=== PATIENT | male | born 1995 | race African-American/Black ===

== ENCOUNTER 2018-05-21 22:18 | Emergency (ER) | payer SELFPAY ==
[2018-05-22] MEDS ORDERED: KETOROLAC 30 MG/ML INJ ONE (00:41)
[2018-05-22 01:07] LABS: Absolute Lymphocytes (CBC) 0.3 K/uL (0.7-4.9); Absolute Monocytes 0.4 K/uL (0.1-1.3); Absolute Neutrophil 3.8 K/uL (1.8-8.0); Basophils % 0.3 % (0-1.3); Eosinophils % 0.4 % (0-4.4); Hematocrit 48.4 % (39.6-49.0); Lymphocytes % 7.5 % (15.3-44.8); MCH 29.1 pg (27.0-35.0); MCV 86.9 fL (80-100); MPV 9.3 fL (7.6-11.3); Monocytes % 9.3 % (3.3-12.3); RBC Red Blood Cell Count 5.57 M/uL (4.33-5.43)
[2018-05-22 01:15] LABS: Urine Bacteria <20 /HPF (NONE SEEN); Urine Culture Reflex Order NOT NEEDED; Urine Mucus MOD /HPF (NONE SEEN); Urine RBC NONE SEEN /HPF (NONE SEEN)
[2018-05-22 01:53] LABS: ALT/SGPT 23 U/L (12-78); AST/SGOT 18 U/L (15-37); Albumin 4.3 g/dL (3.4-5.0); Alkaline Phosphatase 72 U/L (45-117); BUN Blood Urea Nitrogen 20 mg/dL (7-18); Bicarbonate 29 mmol/L (21-32); Bilirubin Total 1.3 mg/dL (0.2-1.0); Glucose Level 93 mg/dL (74-106); Potassium 4.2 mmol/L (3.5-5.1); Protein, Total 8.1 g/dL (6.4-8.2); Sodium Level 135 mmol/L (136-145)
--- NOTE | 2018-05-22 02:19 | ER ---
Nurse's Notes [facility] Name: Paulette Lozoya Age: 22 yrs Sex: Male : 1995 Arrival Date: 05/21/2018 Time: 22:38 Bed 27 Private MD: Diagnosis: Acute Right flank pain;Enteritis Presentation: 05/21 23:37 Presenting complaint: Patient states: he woke up this morning with right flank pain and bb says he is just urinating a little bit also had some difficulty breathing when he woke up but it went away until he walked into the ED but the breathing difficulty has resolved. Transition of care: patient was not received from another setting of care. Onset of symptoms was May 21, 2018. Risk Assessment: Do you want to hurt yourself or someone else? Patient reports no desire to harm self or others. Initial Sepsis Screen: Does the patient meet any 2 criteria? No. Patient's initial sepsis screen is negative. Does the patient have a suspected source of infection? No. Patient's initial sepsis screen is negative. Care prior to arrival: None. 23:37 Method Of Arrival: Ambulatory 23:37 Acuity: BLAKE 3 bb Triage Assessment: 23:40 General: Appears in no apparent distress. slender, Behavior is calm, cooperative. Pain: bb Complains of pain in back Pain currently is 6 out of 10 on a pain scale. Pain began suddenly. Neuro: Level of Consciousness is awake, alert, obeys commands, Oriented to person, place, time, situation. Respiratory: Respiratory effort is even, unlabored. Musculoskeletal: Circulation, motion, and sensation intact. Historical: - Allergies: 23:39 No Known Allergies; bb - Home Meds: 23:39 None [Active]; bb - PMHx: 23:39 ADD/ADHD; bb - PSHx: 23:39 None; bb - Immunization history:: Adult Immunizations up to date. - Social history:: Smoking status: Patient uses tobacco products, denies chronic smoking, but will smoke occasionally, Patient uses alcohol, occasionally. Patient/guardian denies using street drugs. - Ebola Screening: : No symptoms or risks identified at this time. - Family history:: not pertinent. - Hospitalizations: : No recent hospitalization is reported. Screenin/01 01:11 Abuse screen: Denies threats or abuse. Denies injuries from another. Nutritional mg2 screening: No deficits noted. Tuberculosis screening: No symptoms or risk factors identified. Fall Risk IV access (20 points). Assessment: 01:08 General: Appears in no apparent distress. comfortable, Behavior is calm, cooperative. mg2 Pain: Complains of pain in back Pain does not radiate. Pain currently is 6 out of 10 on a pain scale. Quality of pain is described as aching, Pain began gradually, Is intermittent. Neuro: Level of Consciousness is awake, alert, obeys commands, Oriented to person, place, time, situation. Cardiovascular: Capillary refill < 3 seconds Patient's skin is warm and dry. Respiratory: Airway is patent Respiratory effort is even, unlabored, Respiratory pattern is regular, symmetrical. GI: Abdomen is flat. : Urine is clear. EENT: No signs and/or symptoms were reported regarding the EENT system. Derm: Skin is intact, is healthy with good turgor, Skin is pink, warm \T\ dry. normal. Musculoskeletal: Circulation, motion, and sensation intact. Capillary refill < 3 seconds. 02:40 Reassessment: Patient appears in no apparent distress at this time. Patient and/or mg2 family updated on plan of care and expected duration. Pain level reassessed. Patient is alert, oriented x 3, equal unlabored respirations, skin warm/dry/pink. Vital Signs: 05/21 23:39 BP 145 / 79; Pulse 88; Resp 16 S; Temp 99.3(O); Pulse Ox 100% on R/A; Weight 68.04 kg bb (R); Height 5 ft. 8 in. (172.72 cm) (R); Pain 6/10; 05/22 01:12 BP 125 / 78; Pulse 88; Resp 18; Pulse Ox 99% on R/A; Pain 4/10; mg2 05/21 23:39 Body Mass Index 22.81 (68.04 kg, 172.72 cm) bb ED Course: 05/21 22:38 Patient arrived in ED. am2 23:39 Triage completed. bb 23:39 Arm band placed on Patient placed in waiting room, Patient notified of wait time. bb 05/22 00:01 Eliceo Wayne MD is Attending Physician. wa 00:30 Patient moved to radiology via wheelchair. kw 00:31 Chest Pa And Lat (2 Views) XRAY In Process Unspecified. EDMS 00:31 X-ray completed. Patient tolerated procedure well. kw 00:31 Kash De La Rosa, RN is Primary Nurse. mg2 00:[address] via wheelchair. kw 00:57 Stone Protocol In Process Unspecified. EDMS 01:11 No provider procedures requiring assistance completed. Inserted saline lock: 20 gauge mg2 in right antecubital area, using aseptic technique. Blood collected. 01:12 Patient has correct armband on for positive identification. Pulse ox on. NIBP on. mg2 02:33 IV discontinued, intact, bleeding controlled, No redness/swelling at site. Pressure mg2 dressing applied. Administered Medications: 01:05 Drug: TORadol 30 mg Route: IVP; Site: right antecubital; mg2 02:25 Follow up: Response: No adverse reaction; Marked relief of symptoms mg2 Outcome: 02:18 Discharge ordered by . wa 02:33 Discharged to home ambulatory. mg2 02:33 Condition: stable 02:33 Discharge instructions given to patient, Instructed on discharge instructions, follow up and referral plans. Demonstrated understanding of instructions, follow-up care, medications, Prescriptions given X 2. 02:48 Patient left the ED. mg2 Signatures: Dispatcher [employer] EDMelia Gaviria RN RN Lelo Granados Amanda am2 Appiah, William, MD MD wa Gardose, Michele, RN RN mg2
--- NOTE | 2018-05-22 02:19 | EDPHYS ---
Physician Documentation [facility] Name: Paulette Lozoya Age: 22 yrs Sex: Male : 1995 Arrival Date: 05/21/2018 Time: 22:38 Bed 27 Private MD: ED Physician Eliceo Wayne HPI: 05/22 06:27 This 22 yrs old Black Male presents to ER via Ambulatory with complaints of Back Pain, wa Breathing Difficulty. 06:27 The patient presents with pain that is acute, with no known mechanism of injury, denies wa injury. c/o R low back pain. states earlier felt some difficulty breathing, denies SOB at MD encounter. denies penile discharge, blood in urine, or painful urination. The symptoms are located in the R low back. Onset: The symptoms/episode began/occurred today. The pain does not radiate. Associated signs and symptoms: The patient has no apparent associated signs or symptoms. The problem was sustained from unknown cause. Modifying factors: The patient symptoms are alleviated by nothing, the patient symptoms are aggravated by movement. Severity of symptoms: At their worst the symptoms were moderate, in the emergency department the symptoms are unchanged. The patient has not experienced similar symptoms in the past. The patient has not recently seen a physician. Historical: - Allergies: 05/21 23:39 No Known Allergies; bb - Home Meds: 23:39 None [Active]; bb - PMHx: 23:39 ADD/ADHD; bb - PSHx: 23:39 None; bb - Immunization history:: Adult Immunizations up to date. - Social history:: Smoking status: Patient uses tobacco products, denies chronic smoking, but will smoke occasionally, Patient uses alcohol, occasionally. Patient/guardian denies using street drugs. - Ebola Screening: : No symptoms or risks identified at this time. - Family history:: not pertinent. - Hospitalizations: : No recent hospitalization is reported. ROS: 05/22 06:30 Constitutional: Negative for fever, chills, and weight loss, Eyes: Negative for injury, wa pain, redness, and discharge, ENT: Negative for injury, pain, and discharge, Neck: Negative for injury, pain, and swelling, Cardiovascular: Negative for chest pain, palpitations, and edema, Respiratory: Negative for shortness of breath, cough, wheezing, and pleuritic chest pain, : Negative for injury, bleeding, discharge, and swelling, MS/Extremity: Negative for injury and deformity, Skin: Negative for injury, rash, and discoloration, Neuro: Negative for headache, weakness, numbness, tingling, and seizure. Abdomen/GI: Positive for mild diarrhea, Negative for abdominal pain, vomiting, constipation. Exam: 06:31 Constitutional: This is a well developed, well nourished patient who is awake, alert, wa and in no acute distress. Head/Face: Normocephalic, atraumatic. Eyes: Pupils equal round and reactive to light, extra-ocular motions intact. Lids and lashes normal. Conjunctiva and sclera are non-icteric and not injected. Cornea within normal limits. Periorbital areas with no swelling, redness, or edema. ENT: Nares patent. No nasal discharge, no septal abnormalities noted. Tympanic membranes are normal and external auditory canals are clear. Oropharynx with no redness, swelling, or masses, exudates, or evidence of obstruction, uvula midline. Mucous membranes moist. Neck: Trachea midline, no thyromegaly or masses palpated, and no cervical lymphadenopathy. Supple, full range of motion without nuchal rigidity, or vertebral point tenderness. No Meningismus. Chest/axilla: Normal chest wall appearance and motion. Nontender with no deformity. No lesions are appreciated. Cardiovascular: Regular rate and rhythm with a normal S1 and S2. No gallops, murmurs, or rubs. Normal PMI, no JVD. No pulse deficits. Respiratory: Lungs have equal breath sounds bilaterally, clear to auscultation and percussion. No rales, rhonchi or wheezes noted. No increased work of breathing, no retractions or nasal flaring. Abdomen/GI: Soft, non-tender, with normal bowel sounds. No distension or tympany. No guarding or rebound. No evidence of tenderness throughout. Back: No spinal tenderness. No costovertebral tenderness. Full range of motion. Male : Normal genitalia with no discharge or lesions. Skin: Warm, dry with normal turgor. Normal color with no rashes, no lesions, and no evidence of cellulitis. Vital Signs: 05/21 23:39 BP 145 / 79; Pulse 88; Resp 16 S; Temp 99.3(O); Pulse Ox 100% on R/A; Weight 68.04 kg bb (R); Height 5 ft. 8 in. (172.72 cm) (R); Pain 6/10; 05/22 01:12 BP 125 / 78; Pulse 88; Resp 18; Pulse Ox 99% on R/A; Pain 4/10; mg2 05/21 23:39 Body Mass Index 22.81 (68.04 kg, 172.72 cm) bb MDM: 00:01 Patient medically screened. il 06:31 Differential diagnosis: will work up to exclude infection vs kidney stone. consider il musculoskeletal pain. Data reviewed: vital signs, nurses notes. Test interpretation: by ED physician or midlevel provider: labs noted within limits, CT: no stones. possible mild enteritis. Response to treatment: the patient's symptoms have markedly improved after treatment. 05/22 00:13 Order name: CMP; Complete Time: 02:13 il 05/22 00:13 Order name: CBC with Diff; Complete Time: 02:13 il 05/22 00:11 Order name: Chest Pa And Lat (2 Views) XRAY il 05/22 00:13 Order name: Urine Microscopic Only; Complete Time: 02:13 il 05/22 01:04 Order name: Urine Dipstick--Ancillary (enter results) 05/22 00:13 Order name: IV Start; Complete Time: 01:05 il 05/22 00:13 Order name: Urine Dipstick-Ancillary (obtain specimen); Complete Time: 01:05 il 05/22 00:39 Order name: Stone Protocol EDMS Administered Medications: 01:05 Drug: TORadol 30 mg Route: IVP; Site: right antecubital; mg2 02:25 Follow up: Response: No adverse reaction; Marked relief of symptoms mg2 Disposition: 05/22/18 02:18 Discharged to Home. Impression: Acute Right flank pain, Enteritis. - Condition is Stable. - Discharge Instructions: Flank Pain, Adult. - Prescriptions for Cipro 500 mg Oral Tablet - take 1 tablet by ORAL route every 12 hours for 5 days; 10 tablet. Ibuprofen 600 mg Oral Tablet - take 1 tablet by ORAL route every 8 hours As needed take with food; 20 tablet. - Medication Reconciliation Form, Thank You Letter, Antibiotic Education, Prescription Opioid Use, Work release form form. - Follow up: Private Physician; When: 2 - 3 days; Reason: Recheck today's complaints. - Problem is new. - Symptoms have improved. - Notes: take medicines as prescribed. return here or see your doctor immediately if rapidly worsening cocerns Signatures: Dispatcher [employer] [facility] Melia Coe, RN RN bb Eliceo Wayne MD MD wa Gardose, Michele, RN RN mg2 Corrections: (The following items were deleted from the chart) 00:39 00:13 Abdomen Pelvis Wo Con+CT.RAD.BRZ ordered. [facility] EDMS 02:48 02:18 05/22/2018 02:18 Discharged to Home. Impression: Acute Right flank pain; mg2 Enteritis. Condition is Stable. Forms are Medication Reconciliation Form, Thank You Letter, Antibiotic Education, Prescription Opioid Use. Follow up: Private Physician; When: 2 - 3 days; Reason: Recheck today's complaints. Problem is new. Symptoms have improved. goyo
[2018-05-22 04:45] LABS: Urine Blood NEGATIVE (NEG); Urine Glucose NEGATIVE (NEG); Urine Protein NEGATIVE (NEG); Urine Specific Gravity 1.025 (1.005-1.030); Urine pH 5.5 (5.0-7.0)
--- NOTE | 2018-05-22 09:22 | RAD REPORT ---
EXAM DESCRIPTION: RAD - Chest Pa And Lat (2 Views) - 05/22/2018 12:33 am CLINICAL HISTORY: R flank pain Chest pain. COMPARISON: No comparisons FINDINGS: The lungs are clear. The heart is normal in size. No displaced fractures. IMPRESSION: No acute or concerning finding suspected.
--- NOTE | 2018-05-22 09:29 | RAD REPORT ---
EXAM DESCRIPTION: CT - Stone Protocol - 05/22/2018 3:57 am CLINICAL HISTORY: Flank pain. R flank pain COMPARISON: No comparisons TECHNIQUE: Axial images were obtained without oral or IV contrast. Lack of contrast limits solid org an and vascular assessment. The [id number] spans the entirety of the system partially obscuring uppermost abdomen and lung bases. Coronal reformatted images were obtained and reviewed. All CT scans are performed using dose optimization technique as appropriate and may include automated exposure control or mA/KV adjustment according to patient size. FINDINGS: The lower lung carrasco are clear. Imaged portions of the liver and spleen show no suspicious findings on non-contrast imaging. The panc reas and adrenal glands are normal. No pathologic lymphadenopathy in the abdomen or pelvis. No urinary tract stones or obstructive uropathy. No bowel obstruction, free air, free fluid or abscess. Several mildly prominent small bowel loops are present.The appendix is normal. No significant bony abnormality. IMPRESSION: No urinary tract stones or obstructive uropathy. Mild enteritis is possible.
== END 2018-05-22 02:48 | disposition home or self-care (01) ==
LOC: ER 22:18
DX: K52.9 Noninfective gastroenteritis and colitis, unspecified (principal); Z72.0 Tobacco use
CPT/HCPCS: 36415; 71046; 74176; 76377; 80053; 81003; 81015; 85025; 96374; 99284

== ENCOUNTER 2019-05-02 22:15 | Observation (INO) | payer BC, SELFPAY ==
[2019-05-02] MEDS ORDERED: predniSONE 20 MG TAB ONE (22:30)
[2019-05-02] MEDS ORDERED: IPRATROPIUM BROM 0.5MG/2.5ML ONE (23:14)
[2019-05-02] MEDS ORDERED: ALBUTEROL 2.5 MG/3 ML NEB SOL ONE (23:14)
[2019-05-02] MEDS ORDERED: NA CHLORIDE 0.9% 1,000 ML ONE (23:15)
--- NOTE | 2019-05-03 00:17 | ER ---
Nurse's Notes [facility] Name: Paulette Lozoya Age: 23 yrs Sex: Male : 1995 Arrival Date: 05/02/2019 Time: 22:20 Bed 6 Private MD: Diagnosis: Bronchopneumonia, unspecified organism;Respiratory conditions due to unspecified external agent Presentation: 05/02 22:21 Presenting complaint: Patient states: he was treated two weeks ago for bronchitis but bb his symptoms worsened today he is having more difficulty breathing and his chest feels tight. Transition of care: patient was not received from another setting of care. Onset of symptoms was May 02, 2019. Risk Assessment: Do you want to hurt yourself or someone else? Patient reports no desire to harm self or others. Initial Sepsis Screen: Does the patient meet any 2 criteria? No. Patient's initial sepsis screen is negative. Does the patient have a suspected source of infection? No. Patient's initial sepsis screen is negative. Care prior to arrival: None. 22:21 Method Of Arrival: Ambulatory bb 22:21 Acuity: BLAKE 3 bb Historical: - Allergies: 22:27 No Known Allergies; bb - Home Meds: 22:27 medrol dose pack [Active]; amoxicillin-pot clavulanate 875-125 mg Oral tab [Active]; bb Ventolin Rotahaler/Rotacaps Inhl [Active]; - PMHx: 22:27 ADD/ADHD; childhood asthma; bb - PSHx: 22:27 None; bb - Immunization history:: Adult Immunizations up to date. - Social history:: Smoking status: Patient uses tobacco products, denies chronic smoking, but will smoke occasionally. - Ebola Screening: : No symptoms or risks identified at this time. Screenin:21 Abuse screen: Denies threats or abuse. Nutritional screening: No deficits noted. ea Tuberculosis screening: No symptoms or risk factors identified. Fall Risk None identified. Assessment: 22:22 General: Appears uncomfortable, Behavior is appropriate for age. Pain: Denies pain. ea Neuro: Level of Consciousness is awake, alert, obeys commands, Oriented to person, place, time, situation. Cardiovascular: Patient's skin is warm and dry. Respiratory: Airway is patent Respiratory effort is labored, Respiratory pattern is tachypnea Breath sounds with wheezes bilaterally. Derm: Skin is dry, Skin is normal, Skin temperature is warm. Musculoskeletal: Circulation, motion, and sensation intact. 05/03 01:11 Reassessment: Patient and/or family updated on plan of care and expected duration. Pain ea level reassessed. Patient is alert, oriented x 3, equal unlabored respirations, skin warm/dry/pink. Report given to receiving nurse on second floor. 02:11 Reassessment: Patient appears in no apparent distress at this time. Patient and/or cc3 family updated on plan of care and expected duration. Pain level reassessed. Patient is alert, oriented x 3, equal unlabored respirations, skin warm/dry/pink. Patient left ER for admission vitally stable by wheelchair escorted by SELINA Olmstead. No valuables left in the patient's room. Patient denies pain at this time. Patient states feeling better. Patient states symptoms have improved. Vital Signs: 05/02 22:27 BP 165 / 87; Pulse 116; Resp 20 S; Temp 98.4(O); Pulse Ox 93% on R/A; Weight 63.5 kg bb (R); Height 5 ft. 8 in. (172.72 cm) (R); 23:35 BP 124 / 74; Pulse 96; Resp 18; Pulse Ox 100% ; ea 05/03 00:39 BP 129 / 72; Pulse 104; Resp 18; Temp 98.5; Pulse Ox 96% ; ea 01:12 BP 120 / 69; Pulse 100; Resp 18; Pulse Ox 97% ; ea 02:03 BP 129 / 61; Pulse 18; Resp 18; Pulse Ox 95% on R/A; ea 05/02 22:27 Body Mass Index 21.29 (63.50 kg, 172.72 cm) ED Course: 05/02 22:20 Patient arrived in ED. es 22:21 Aysha Quevedo, SELINA is Primary Nurse. ea 22:21 Jaspal Isabel MD is Attending Physician. gs 22:21 Patient has correct armband on for positive identification. Bed in low position. Call ea light in reach. Side rails up X2. 22:22 Arm band placed on right wrist. Patient placed in an exam room, on a stretcher, on ea pulse oximetry. 22:23 Triage completed. bb 23:19 Patient moved to radiology via wheelchair. [facility] 23:19 X-ray completed. Patient tolerated procedure well. [facility] 23:19 XRAY Chest Pa And Lat (2 Views) In Process Unspecified. EDMS 23:28 Inserted saline lock: 20 gauge in right antecubital area, using aseptic technique. cc3 inserted by SELINA Olmstead. 05/03 00:15 Dale Manley MD is Hospitalizing Provider. 01:12 No provider procedures requiring assistance completed. Patient admitted, IV remains in ea place. Administered Medications: 05/02 22:25 Drug: Albuterol - atroVENT (3:1) (2.5 mg - 0.5 mg) 3 ml Route: Nebulizer; ea 23:00 Follow up: Response: No adverse reaction ea 23:01 Follow up: Response: Wheezing diminished ea 22:25 Drug: AtroVENT Aerosol 0.5 mg Route: Inhalation; ea 22:54 Drug: predniSONE 40 mg Route: PO; ea 23:01 Follow up: Response: No adverse reaction ea 23:28 Drug: NS 0.9% 1000 ml Route: IV; Rate: 1 bolus; Site: right antecubital; cc3 05/03 01:14 Follow up: Response: No adverse reaction; IV Status: Completed infusion; IV Intake: ea 1000ml 05/02 23:28 Drug: Albuterol 2.5 mg Route: Inhalation; cc3 23:28 Drug: AtroVENT Aerosol 0.5 mg Route: Inhalation; cc3 Intake: 05/03 01:14 IV: 1000ml; Total: 1000ml. ea Outcome: 00:16 Decision to Hospitalize by Provider. gs 01:13 Condition: stable ea 01:13 Instructed on the need for admit, Demonstrated understanding of instructions. 01:13 Admitted to Med/surg accompanied by tech, room 220, with chart, Report called to ea Receiving nurse on second floor 02:11 Patient left the ED. cc3 Signatures: Dispatcher [employer] Susan Rayo Martha [facility] Melia Coe RN Aysha Gomez RN RN ea Starr, Gregory, MD MD gs Cordel, Charlene cc3
--- NOTE | 2019-05-03 00:17 | EDPHYS ---
Physician Documentation [facility] Name: Paulette Lozoya Age: 23 yrs Sex: Male : 1995 Arrival Date: 05/02/2019 Time: 22:20 Bed 6 Private MD: ED Physician Jaspal Isabel HPI: 05/03 00:03 This 23 yrs old Black Male presents to ER via Ambulatory with complaints of Asthma gs Exacerbation. 00:07 The patient has shortness of breath at rest. Onset: The symptoms/episode began/occurred gs 3 week(s) ago, and became worse and became persistent. Duration: The symptoms are continuous. The patient's shortness of breath has no apparent modifying factors. Associated signs and symptoms: Pertinent negatives: fever. Severity of symptoms: At their worst the symptoms were severe in the emergency department the symptoms are unchanged. The patient has experienced a previous episode. The patient has been recently seen by a physician: with similar presenting complaints. Historical: - Allergies: 05/02 22:27 No Known Allergies; bb - Home Meds: 22:27 medrol dose pack [Active]; amoxicillin-pot clavulanate 875-125 mg Oral tab [Active]; bb Ventolin Rotahaler/Rotacaps Inhl [Active]; - PMHx: 22:27 ADD/ADHD; childhood asthma; bb - PSHx: 22:27 None; bb - Immunization history:: Adult Immunizations up to date. - Social history:: Smoking status: Patient uses tobacco products, denies chronic smoking, but will smoke occasionally. - Ebola Screening: : No symptoms or risks identified at this time. ROS: 05/03 00:07 All other systems are negative. gs Exam: 00:07 Head/Face: Normocephalic, atraumatic. Eyes: Pupils equal round and reactive to light, gs extra-ocular motions intact. Lids and lashes normal. Conjunctiva and sclera are non-icteric and not injected. Cornea within normal limits. Periorbital areas with no swelling, redness, or edema. ENT: Nares patent. No nasal discharge, no septal abnormalities noted. Tympanic membranes are normal and external auditory canals are clear. Oropharynx with no redness, swelling, or masses, exudates, or evidence of obstruction, uvula midline. Mucous membranes moist. Neck: Trachea midline, no thyromegaly or masses palpated, and no cervical lymphadenopathy. Supple, full range of motion without nuchal rigidity, or vertebral point tenderness. No Meningismus. Chest/axilla: Normal chest wall appearance and motion. Nontender with no deformity. No lesions are appreciated. Abdomen/GI: Soft, non-tender, with normal bowel sounds. No distension or tympany. No guarding or rebound. No evidence of tenderness throughout. Back: No spinal tenderness. No costovertebral tenderness. Full range of motion. Skin: Warm, dry with normal turgor. Normal color with no rashes, no lesions, and no evidence of cellulitis. MS/ Extremity: Pulses equal, no cyanosis. Neurovascular intact. Full, normal range of motion. Neuro: Awake and alert, GCS 15, oriented to person, place, time, and situation. Cranial nerves II-XII grossly intact. Motor strength 5/5 in all extremities. Sensory grossly intact. Cerebellar exam normal. Normal gait. 00:07 Constitutional: The patient appears alert, awake. 00:07 Constitutional: The patient appears in obvious distress, severely distressed. 00:07 Cardiovascular: Rate: tachycardic, Rhythm: regular, Pulses: no pulse deficits are appreciated. 00:07 Respiratory: severe repiratory distress is noted, Respirations: labored breathing, tachypnea, Breath sounds: decreased breath sounds, that are severe, wheezing: expiratory is heard diffusely. Vital Signs: 05/02 22:27 BP 165 / 87; Pulse 116; Resp 20 S; Temp 98.4(O); Pulse Ox 93% on R/A; Weight 63.5 kg bb (R); Height 5 ft. 8 in. (172.72 cm) (R); 23:35 BP 124 / 74; Pulse 96; Resp 18; Pulse Ox 100% ; ea 05/03 00:39 BP 129 / 72; Pulse 104; Resp 18; Temp 98.5; Pulse Ox 96% ; ea 01:12 BP 120 / 69; Pulse 100; Resp 18; Pulse Ox 97% ; ea 02:03 BP 129 / 61; Pulse 18; Resp 18; Pulse Ox 95% on R/A; ea 05/02 22:27 Body Mass Index 21.29 (63.50 kg, 172.72 cm) bb MDM: 05/02 22:21 Patient medically screened. gs 05/03 00:07 Differential diagnosis: asthma, Bronchitis pneumonia. Data reviewed: vital signs, gs nurses notes, lab test result(s), radiologic studies. Counseling: I had a detailed discussion with the patient and/or guardian regarding: the historical points, exam findings, and any diagnostic results supporting the discharge/admit diagnosis, the need for further work-up and treatment in the hospital. Response to treatment: the patient's symptoms have mildly improved after treatment, and as a result, I will admit patient. 05/03 00:16 Order name: CBC with Diff 05/03 00:16 Order name: Basic Metabolic Panel 05/02 23:06 Order name: XRAY Chest Pa And Lat (2 Views) gs 05/03 00:58 Order name: Manual Differential EDMS 05/03 00:55 Order name: CONS Pharmacy Consult EDRI 05/03 00:55 Order name: NPO EDMS Administered Medications: 05/02 22:25 Drug: Albuterol - atroVENT (3:1) (2.5 mg - 0.5 mg) 3 ml Route: Nebulizer; ea 23:00 Follow up: Response: No adverse reaction ea 23:01 Follow up: Response: Wheezing diminished ea 22:25 Drug: AtroVENT Aerosol 0.5 mg Route: Inhalation; ea 22:54 Drug: predniSONE 40 mg Route: PO; ea 23:01 Follow up: Response: No adverse reaction ea 23:28 Drug: NS 0.9% 1000 ml Route: IV; Rate: 1 bolus; Site: right antecubital; cc3 05/03 01:14 Follow up: Response: No adverse reaction; IV Status: Completed infusion; IV Intake: ea 1000ml 05/02 23:28 Drug: Albuterol 2.5 mg Route: Inhalation; cc3 23:28 Drug: AtroVENT Aerosol 0.5 mg Route: Inhalation; cc3 Disposition: 05/03/19 00:16 Hospitalization ordered by Dale Manley for Observation. Preliminary diagnosis are Bronchopneumonia, unspecified organism, Respiratory conditions due to unspecified external agent. - Bed requested for Telemetry/MedSurg (observation). - Status is Observation. cc3 - Condition is Stable. - Problem is new. - Symptoms have improved. UTI on Admission? No Signatures: Dispatcher [employer] EDMS Melia Coe, RN RN Aysha Jimenez RN RN ea Starr, Gregory, MD MD Dalia Sheppard cc3 Eloise Medina lt1 Corrections: (The following items were deleted from the chart) 05/03 00:35 00:16 Hospitalization Ordered by Dale Manley MD for Observation. Preliminary lt1 diagnosis is Bronchopneumonia, unspecified organism; Respiratory conditions due to unspecified external agent. Bed requested for Telemetry/MedSurg (observation). Status is Observation. Condition is Stable. Problem is new. Symptoms have improved. UTI on Admission? No. 02:11 00:35 05/03/2019 00:16 Hospitalization Ordered by Dale Manley MD for Observation. cc3 Preliminary diagnosis is Bronchopneumonia, unspecified organism; Respiratory conditions due to unspecified external agent. Bed requested for Telemetry/MedSurg (observation). Status is Observation. Condition is Stable. Problem is new. Symptoms have improved. UTI on Admission? No. lt1
[2019-05-03] MEDS ORDERED: MORPHINE 2 MG/ML SYR IV PRN (00:50)
[2019-05-03] MEDS ORDERED: ACETAMINOPHEN 500 MG TAB PO PRN (00:50)
[2019-05-03] MEDS ORDERED: ONDANSETRON 4 MG/2 ML VIAL IV PRN (00:50)
[2019-05-03 00:56] LABS: Absolute Lymphocytes (CBC) 0.5 K/uL (0.7-4.9); Basophils % 0.1 % (0-1.3); Hematocrit 41.2 % (39.6-49.0); Lymphocytes % 6.2 % (15.3-44.8); MPV 8.8 fL (7.6-11.3); RBC Red Blood Cell Count 4.75 M/uL (4.33-5.43)
[2019-05-03] MEDS ORDERED: ALBUTEROL 2.5 MG/3 ML NEB SOL NEB SCH (01:00)
[2019-05-03 01:21] LABS: BUN Blood Urea Nitrogen 10 mg/dL (7-18); Bicarbonate 29 mmol/L (21-32); Glucose Level 96 mg/dL (74-106); Potassium 3.5 mmol/L (3.5-5.1); Sodium Level 140 mmol/L (136-145)
[2019-05-03 02:29] LABS: Blood Morphology Comment NOT SEEN (NOT SEEN); Platelet Estimate ADEQ
[2019-05-03 02:30] VITALS: BMI 22.6
[2019-05-03 05:02] LABS: Urine Appearance CLEAR; Urine Bilirubin NEGATIVE (NEG); Urine Blood NEGATIVE (NEG); Urine Color YELLOW; Urine Glucose NEGATIVE (NEG); Urine Protein NEGATIVE (NEG); Urine Urobilinogen 0.2 mg/dL (0.2-1.0)
[2019-05-03 05:03] LABS: Urine Microscopic Reflex NO UMIC
[2019-05-03] MEDS ORDERED: CEFTRIAXONE 1000 MG/VIAL ONE (05:55)
[2019-05-03] MEDS ORDERED: NA CHLORIDE 0.9% 50 ML ONE (05:55)
[2019-05-03] MEDS: METHYLPREDNISOLONE 125 MG INJ IV SCH ×3 (05:58→17:32)
[2019-05-03] MEDS: CEFTRIAXONE 1 GM/NS 50 ML 1 GM/50 ML BAG IV SCH ×2 (05:59→07:04)
[2019-05-03] MEDS ORDERED: INFLUENZA VACCINE (for 3y+) 0.5 ML DOSE IMVAC ONE (06:00)
[2019-05-03] MEDS: ALBUTEROL 2.5 MG/3 ML NEB SOL NEB SCH ×3 (07:29→20:00)
--- NOTE | 2019-05-03 08:13 | RAD REPORT ---
EXAM DESCRIPTION: RAD - Chest Pa And Lat (2 Views) - 05/02/2019 11:22 pm CLINICAL HISTORY: DYSPNEA COMPARISON: May 2018 TECHNIQUE: PA and lateral views of the chest were obtained. FINDINGS: The lungs are clear. Heart size is normal and central vasculature is within normal limit s. No pleural effusion or pneumothorax seen. No acute bony finding noted. No aortic abnormality. No significant interval change. IMPRESSION: No acute cardiopulmonary process.
--- NOTE | 2019-05-03 08:47 | P.HP ---
Certification for Inpatient Patient admitted to: Observation With expected LOS: <2 Midnights Patient will require the following post-hospital care: None Practitioner: I am a practitioner with admitting privileges, knowledge of patient current condition, hospital course, and medical plan of care. Services: Services provided to patient in accordance with Admission requirements found in Title 42 Section 412.3 of the Code of Federal Regulations Patient History Date of Service: 05/03/19 Reason for admission: Shortness of breath History of Present Illness: Patient is a 23-year-old gentleman who came to the hospital with difficulty breathing. Patient was found have asthma exacerbation. Patient was slightly hypoxic in the ER at 92%. Patient states he has never been officially diagnosed with asthma although he has had symptoms. He was given an inhaler 2 weeks ago. He states there were 240 puffs on there and he has used almost 200. he coughs a lot and whenever he is around cold air he also has worsening episodes of coughing. He coughs at night and also whenever he is doing any sports activity. Patient was likely has asthma. He is not on any preventive medication. He needs to be on a steroid inhaler along with Singulair and albuterol rescue inhaler. Will also probably be prudent to go ahead and get started on prednisone short term. He also should via nebulizer to keep on hand in the future. Patient is slowly improving. We will check his peak flows. Will do some Education and hopefully he will be able to go home tomorrow morning. Allergies No Known Allergies Allergy (Unverified 05/03/19 00:42) Home Medications: Albuterol Inhaler [Ventolin Inhaler*] 1 puff IH QID PRN 05/03/19 Amoxicillin/Potassium Clav [Amox-Clav 875-125 mg Tablet] 1 each PO BID 05/03/19 Benzonatate 200 mg PO Q8HP PRN 05/03/19 methylPREDNISolone [Methylpred Dp] 4 mg PO SEECOM 05/03/19 - Past Medical/Surgical History Has patient received pneumonia vaccine in the past: No Diabetic: No -: asthma -: adhd Past Surgical History: Patient denies surgical history - Family History uncle Medical History: Kidney disease grandmother Medical History: Stroke - Social History Smoking Status: Unknown if ever smoked Alcohol use: Yes CD- Drugs: No Caffeine use: No Place of Residence: Home Review of Systems 10-point ROS is otherwise unremarkable Physical Examination - Vital Signs Temperature: 99 F Blood Pressure: 118/56 Pulse: 89 Respirations: 20 Pulse Ox (%): 92 - Physical Exam General: Alert, In no apparent distress, Oriented x3 HEENT: Atraumatic, PERRLA, Mucous membr. moist/pink, EOMI, Sclerae nonicteric Neck: Supple, 2+ carotid pulse no bruit, No LAD, Without JVD or thyroid abnormality Respiratory: Diminished, Expiratory wheezes, Inspiratory wheezes Cardiovascular: Regular rate/rhythm, Normal S1 S2, No murmurs Gastrointestinal: Normal bowel sounds, Soft and benign, Non-distended, No tenderness Musculoskeletal: No clubbing, No swelling, No tenderness Integumentary: No rashes Neurological: Normal gait, Normal speech, Normal strength at 5/5 x4 extr, Normal tone, Sensation intact, Cranial nerves 3-12 intact, Normal affect Lymphatics: No axilla or inguinal lymphadenopathy - Studies Laboratory Data (last 24 hrs) 05/03/19 00:30: Sodium 140, Potassium 3.5, BUN 10, Creatinine 1.06, Glucose 96 05/03/19 00:30: WBC 8.5, Hgb 14.3, Hct 41.2, Plt Count 211 Assessment & Plan - Problems (Diagnosis) (1) Acute asthma exacerbation Current Visit: Yes Status: Acute - Plan -nebs, steroids, and antibiotics -O2 per protocol. -peak flow measurements -outpatient spirometry or pulmonary function testing -repeat chest x-ray -pulmonary consultation as an outpatient Discharge Plan: Home Plan to discharge in: 48 Hours - Advance Directives Does patient have a Living Will: No Does patient have a Durable POA for Healthcare: No - Code Status/Comfort Care Code Status Assessed: Yes Code Status: Full Code Critical Care: No Time Spent Managing PTS Care (In Minutes): 45
[2019-05-04] MEDS: METHYLPREDNISOLONE 125 MG INJ IV SCH ×3 (00:14→12:48)
[2019-05-04] MEDS: ALBUTEROL 2.5 MG/3 ML NEB SOL NEB SCH ×3 (02:00→13:51)
[2019-05-04] MEDS ORDERED: CEFTRIAXONE/SWI 1gm 1 GM/10 ML SYR IVP SCH (09:00)
--- NOTE | 2019-05-04 10:01 | P.DS ---
Discharge Date: 05/04/19 Disposition: ROUTINE DISCHARGE Discharge Condition: GOOD Reason for Admission: Shortness of breath - Problems (1) Acute asthma exacerbation Status: Acute Brief History of Present Illness: Patient is a 23-year-old gentleman who came to the hospital with difficulty breathing. Patient was found have asthma exacerbation. Patient was slightly hypoxic in the ER at 92%. Patient states he has never been officially diagnosed with asthma although he has had symptoms. He was given an inhaler 2 weeks ago. He states there were 240 puffs on there and he has used almost 200. he coughs a lot and whenever he is around cold air he also has worsening episodes of coughing. He coughs at night and also whenever he is doing any sports activity. Patient was likely has asthma. He is not on any preventive medication. He needs to be on a steroid inhaler along with Singulair and albuterol rescue inhaler. Will also probably be prudent to go ahead and get started on prednisone short term. He also should via nebulizer to keep on hand in the future. Patient is slowly improving. We will check his peak flows. Will do some Education and hopefully he will be able to go home tomorrow morning. Hospital Course: Patient did well, and patient is stable for discharge home with outpt follow-up with a PCP. Vital Signs/Physical Exam: Temp Pulse Resp BP Pulse Ox 97.3 F 65 20 132/60 100 05/04/19 08:00 05/04/19 08:00 05/04/19 08:00 05/04/19 08:00 05/04/19 08:00 General: Alert, In no apparent distress, Oriented x3 Laboratory Data at Discharge: WBC 8.5 K/uL (4.3-10.9) 05/03/19 00:30 Hgb 14.3 g/dL (13.6-17.9) 05/03/19 00:30 Hct 41.2 % (39.6-49.0) 05/03/19 00:30 Plt Count 211 K/uL (152-406) 05/03/19 00:30 Sodium 140 mmol/L (136-145) 05/03/19 00:30 Potassium 3.5 mmol/L (3.5-5.1) 05/03/19 00:30 BUN 10 mg/dL (7-18) 05/03/19 00:30 Creatinine 1.06 mg/dL (0.55-1.3) 05/03/19 00:30 Glucose 96 mg/dL (74-106) 05/03/19 00:30 Home Medications: Albuterol Inhaler [Ventolin Inhaler*] 1 puff IH QID PRN 05/03/19 Amoxicillin/Potassium Clav [Amox-Clav 875-125 mg Tablet] 1 each PO BID 05/03/19 Benzonatate 200 mg PO Q8HP PRN 05/03/19 methylPREDNISolone [Methylpred Dp] 4 mg PO SEECOM 05/03/19 Albuterol Inhaler [Ventolin Inhaler*] 2 puff IH Q6H PRN #1 hfa.aer.ad 05/04/19 Albuterol Sulfate [Albuterol Sulfate 0.083% Neb Soln] 2.5 mg NEB Q6HP PRN #60 ml 05/04/19 Budesonide/Formoterol Fumarate [Symbicort 160-4.5 Mcg Inhaler] 1 puff IH BID #1 hfa.aer.ad 05/04/19 Montelukast Sodium [Singulair] 10 mg PO DAILY #30 tablet 05/04/19 predniSONE [Deltasone] 20 mg PO BID #30 tablet 05/04/19 New Medications: Albuterol Inhaler [Ventolin Inhaler*] 2 puff IH Q6H PRN #1 hfa.aer.ad PRN Reason: Shortness Of Breath Albuterol Sulfate [Albuterol Sulfate 0.083% Neb Soln] 2.5 mg NEB Q6HP PRN #60 ml PRN Reason: Wheezing Budesonide/Formoterol Fumarate [Symbicort 160-4.5 Mcg Inhaler] 1 puff IH BID #1 hfa.aer.ad Montelukast Sodium [Singulair] 10 mg PO DAILY #30 tablet predniSONE [Deltasone] 20 mg PO BID #30 tablet Patient Discharge Instructions: OK TO DC IV AND DC HOME. FOLLOW-UP WITH PRIMARY CARE PROVIDER IN 1-2 WEEKS. FOLLOW-UP WITH Pulmonary IN 1-2 WEEKS. RETURN TO THE ER IF symptoms worsens. CALL DR. STEWART AT [phone] IF ANY QUESTIONS REGARDING HOSPITAL STAY. PLEASE CALL THE FLOOR AT [phone] IF ANY MEDICATION OR NURSING QUESTIONS. Diet: Regular Activity: Fall precautions Time spent managing pt's care (in minutes): 20
[2019-05-04 13:25] VITALS: BP 125/61; TEMP 98
[2019-05-04 16:14] VITALS: O2SAT 98
== END 2019-05-04 14:20 | disposition home or self-care (01) ==
LOC: ER 22:15 → ERHOLD 05-03 02:00 → INTOOBSV 05-03 02:00 → 2ND 05-03 02:02
PROVIDERS: ADMIT Hospitalist; ATTEND Hospitalist
DX: J45.901 Unspecified asthma with (acute) exacerbation (principal); R09.02 Hypoxemia; Z23 Encounter for immunization
CPT/HCPCS: 96361; 85025; 80048; 36415; 81003; 71046; 90471; 94010 ×2; 94640 ×7; 96360; 99285; Q2035; J0696 ×2; J7030; J2930 ×6; G0378 ×3; J7512

== ENCOUNTER 2019-07-29 13:32 | Emergency (ER) | payer BC ==
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
[2019-07-29 14:23] VITALS: BP 126/61; TEMP 98.1; O2SAT 97
== END 2019-07-29 14:18 | disposition home or self-care (01) ==
LOC: ER 13:32
DX: S39.012A Strain of muscle, fascia and tendon of lower back, initial encounter (principal); J45.909 Unspecified asthma, uncomplicated; V49.40XA Driver injured in collision with unspecified motor vehicles in traffic accident, initial encounter; Z72.0 Tobacco use
CPT/HCPCS: 99281

== ENCOUNTER 2020-08-31 21:03 | Emergency (ER) | payer BC ==
--- OUTSIDE RECORDS SUMMARY | 2020-08-31 21:05 | XMS REPORT | Continuity of Care Document ---
:1995 Author Organization [facility] t Address [address] [place] [address] Care Team Providers Name Role Phone DR JOSE Attending Clinician Unavailable DR JOSE Admitting Clinician Unavailable Problems This patient has no known problems. Allergies, Adverse Reactions, Alerts This patient has no known allergies or adverse reactions. Medications This patient has no known medications. Procedures This patient has no known procedures. Encounters Start End Encounter Admission Attending Care Care Encounter Source Date/Time Date/Time Type Type Clinicians Facility Department ID 2020-04-16 2020-04-16 Outpatient E LISA GARCIA [facility] [id number] [facility] 05:54:00 06:32:00 [facility] Results This patient has no known results.
[2020-08-31] MEDS ORDERED: IPRATROPIUM BROM 0.5MG/2.5ML ONE (21:47)
[2020-08-31] MEDS ORDERED: ALBUTEROL 2.5 MG/3 ML NEB SOL ONE (21:47)
[2020-08-31] MEDS ORDERED: predniSONE 20 MG TAB ONE (21:47)
--- NOTE | 2020-08-31 22:17 | EDPHYS ---
Physician Documentation [facility] Name: Paulette Lozoya Age: 24 yrs Sex: Male : 1995 Arrival Date: 08/31/2020 Time: 21:07 Bed 6 Private MD: ED Physician Dale Hawkins HPI: 08/31 21:26 This 24 yrs old Black Male presents to ER via Ambulatory with complaints of Asthma ma2 Exacerbation. 21:26 Onset: The symptoms/episode began/occurred gradually, 1 day(s) ago. Associated signs ma2 and symptoms: Pertinent negatives: fever, nausea, rash. Severity of symptoms: At their worst the symptoms were mild in the emergency department the symptoms are unchanged. The patient has experienced similar episodes in the past. out of his meds. Historical: - Allergies: 21:17 No Known Allergies; em - Home Meds: 21:17 Albuterol Inhl [Active]; em - PMHx: 21:17 ADD/ADHD; childhood asthma; em - PSHx: 21:17 None; em - Immunization history:: Adult Immunizations up to date. - Social history:: Smoking status: Patient denies any tobacco usage or history of. Patient uses Patient/guardian denies using alcohol, street drugs, The patient lives with family. - Family history:: not pertinent. ROS: 21:26 Constitutional: Negative for fever, chills, and weight loss. ma2 21:26 All other systems are negative. Exam: 21:26 Constitutional: This is a well developed, well nourished patient who is awake, alert, ma2 and in no acute distress. Neck: Trachea midline, no thyromegaly or masses palpated, and no cervical lymphadenopathy. Supple, full range of motion without nuchal rigidity, or vertebral point tenderness. No Meningismus. Chest/axilla: Normal chest wall appearance and motion. Nontender with no deformity. No lesions are appreciated. Cardiovascular: Regular rate and rhythm with a normal S1 and S2. No gallops, murmurs, or rubs. Normal PMI, no JVD. No pulse deficits. Respiratory: Lungs have equal breath sounds bilaterally, clear to auscultation and percussion. No rales, rhonchi. scattered wheezes noted. No increased work of breathing, no retractions or nasal flaring. Abdomen/GI: Soft, non-tender, with normal bowel sounds. No distension or tympany. No guarding or rebound. No evidence of tenderness throughout. Skin: Warm, dry with normal turgor. Normal color with no rashes, no lesions, and no evidence of cellulitis. MS/ Extremity: Pulses equal, no cyanosis. Neurovascular intact. Full, normal range of motion. Neuro: Awake and alert, GCS 15, oriented to person, place, time, and situation. Cranial nerves II-XII grossly intact. Motor strength 5/5 in all extremities. Sensory grossly intact. Cerebellar exam normal. Normal gait. Vital Signs: 21:15 BP 125 / 76; Pulse 74; Resp 20; Temp 97.8; Pulse Ox 96% on R/A; Weight 70.31 kg; Height em 5 ft. 9 in. (175.26 cm); Pain 0/10; 22:26 BP 118 / 60; Pulse 60; Resp 18; Temp 98; Pulse Ox 98% ; ea 21:15 Body Mass Index 22.89 (70.31 kg, 175.26 cm) em MDM: 21:09 Patient medically screened. ma2 21:26 Differential diagnosis: acute asthma, exercise-induced asthma, reactive airway, URI. ma2 Antibiotic administration: Not indicated. Data reviewed: vital signs, nurses notes. 22:15 Counseling: I had a detailed discussion with the patient and/or guardian regarding: the ma2 historical points, exam findings, and any diagnostic results supporting the discharge/admit diagnosis, the presence of at least one elevated blood pressure reading (>120/80) during this emergency department visit, the need for outpatient follow up. Response to treatment: the patient's symptoms have resolved after treatment. Administered Medications: 21:37 Drug: Albuterol - atroVENT (3:1) (2.5 mg - 0.5 mg) 3 ml Route: Nebulizer; ea 22:00 Follow up: Response: No adverse reaction ea 21:37 Drug: predniSONE 60 mg Route: PO; ea 22:00 Follow up: Response: No adverse reaction ea Disposition: 08/31/20 22:16 Discharged to Home. Impression: Asthma. - Condition is Stable. - Discharge Instructions: Asthma, Adult, [id number]. - Prescriptions for Prednisone 20 mg Oral Tablet - take 1 tablet by ORAL route once daily for 5 days; 5 tablet. Albuterol Sulfate 2.5 mg /3 mL (0.083 %) Inhalation Solution for Nebulization - inhale 1 unit by NEBULIZATION route every 8 hours As needed; 1 box. Albuterol Sulfate 90 mcg/actuation - inhale 1-2 puff by INHALATION route every 4-6 hours; 1 Inhaler. Symbicort 80- 4.5 mcg/actuation Inhalation HFA aerosol inhaler - inhale 2 puff by INHALATION route 2 times per day; 2 Container. - Work release form, Medication Reconciliation Form, Thank You Letter, Antibiotic Education, Prescription Opioid Use form. - Follow up: Private Physician; When: Tomorrow; Reason: If symptoms return. Signatures: Dylan Davalos RN RN em Antunez, Elena, RN RN ea Alzahri, Mohammad, MD MD ma2 Corrections: (The following items were deleted from the chart) 22:55 22:16 08/31/2020 22:16 Discharged to Home. Impression: Asthma. Condition is Stable. ea Prescriptions for Prednisone 20 mg Oral Tablet - take 1 tablet by ORAL route once daily for 5 days; 5 tablet, Albuterol Sulfate 2.5 mg /3 mL (0.083 %) Inhalation Solution for Nebulization - inhale 1 unit by NEBULIZATION route every 8 hours As needed; 1 box, Albuterol Sulfate 90 mcg/actuation - inhale 1-2 puff by INHALATION route every 4-6 hours; 1 Inhaler. and Forms are Medication Reconciliation Form, Thank You Letter, Antibiotic Education, Prescription Opioid Use. Follow up: Private Physician; When: Tomorrow; Reason: If symptoms return. ma2
--- NOTE | 2020-08-31 22:17 | ER ---
Nurse's Notes [facility] Name: Paulette Lozoya Age: 24 yrs Sex: Male : 1995 Arrival Date: 08/31/2020 Time: 21:07 Bed 6 Private MD: Diagnosis: Asthma Presentation: 08/31 21:15 Chief complaint: Patient states: hx of asthma, reports shortness of breath and chest em tightness, has been dealing with this for 4 months, ran out of his albuterol and Symbicort, denies fever. Coronavirus screen: Client denies travel out of the [place] in the last 14 days. Ebola Screen: Patient negative for fever greater than or equal to 101.5 degrees Fahrenheit, and additional compatible Ebola Virus Disease symptoms Patient denies exposure to infectious person. Patient denies travel to an Ebola-affected area in the 21 days before illness onset. No symptoms or risks identified at this time. Initial Sepsis Screen: Does the patient meet any 2 criteria? No. Patient's initial sepsis screen is negative. Does the patient have a suspected source of infection? No. Patient's initial sepsis screen is negative. Risk Assessment: Do you want to hurt yourself or someone else? Patient reports no desire to harm self or others. Onset of symptoms was August 31, 2020. 21:15 Method Of Arrival: Ambulatory em 21:15 Acuity: BLAKE 3 em Historical: - Allergies: 21:17 No Known Allergies; em - Home Meds: 21:17 Albuterol Inhl [Active]; em - PMHx: 21:17 ADD/ADHD; childhood asthma; em - PSHx: 21:17 None; em - Immunization history:: Adult Immunizations up to date. - Social history:: Smoking status: Patient denies any tobacco usage or history of. Patient uses Patient/guardian denies using alcohol, street drugs, The patient lives with family. - Family history:: not pertinent. Screenin:39 Abuse screen: Denies threats or abuse. Nutritional screening: No deficits noted. ea Tuberculosis screening: No symptoms or risk factors identified. Fall Risk None identified. Assessment: 21:38 General: Appears in no apparent distress. Behavior is calm, cooperative, appropriate ea for age. Pain: Denies pain. Neuro: Level of Consciousness is awake, alert, obeys commands, Oriented to person, place, time. Respiratory: Airway is patent Respiratory effort is even, unlabored, Respiratory pattern is regular, symmetrical. Derm: Skin is pink, warm \T\ dry. 22:54 Reassessment: Patient and/or family updated on plan of care and expected duration. Pain ea level reassessed. Patient is alert, oriented x 3, equal unlabored respirations, skin warm/dry/pink. Discharge instruction given to patient, verbalized the understanding of instruction. Pt left ED ambulatory tolerating well. Vital Signs: 21:15 BP 125 / 76; Pulse 74; Resp 20; Temp 97.8; Pulse Ox 96% on R/A; Weight 70.31 kg; Height em 5 ft. 9 in. (175.26 cm); Pain 0/10; 22:26 BP 118 / 60; Pulse 60; Resp 18; Temp 98; Pulse Ox 98% ; ea 21:15 Body Mass Index 22.89 (70.31 kg, 175.26 cm) em ED Course: 21:07 Patient arrived in ED. ag3 21:09 Dale Hawkins MD is Attending Physician. ma2 21:17 Triage completed. em 21:17 Arm band placed on. em 21:36 Aysha Quevedo, SELINA is Primary Nurse. ea 21:39 Patient has correct armband on for positive identification. Bed in low position. Call ea light in reach. Side rails up X2. 22:26 No provider procedures requiring assistance completed. Patient did not have IV access ea during this emergency room visit. Administered Medications: 21:37 Drug: Albuterol - atroVENT (3:1) (2.5 mg - 0.5 mg) 3 ml Route: Nebulizer; ea 22:00 Follow up: Response: No adverse reaction ea 21:37 Drug: predniSONE 60 mg Route: PO; ea 22:00 Follow up: Response: No adverse reaction ea Outcome: 22:16 Discharge ordered by . ma2 22:55 Discharged to home ambulatory. ea 22:55 Condition: stable 22:55 Discharge instructions given to patient, Instructed on discharge instructions, follow up and referral plans. medication usage, Demonstrated understanding of instructions, follow-up care, medications, Prescriptions given X 3. 22:55 Patient left the ED. ea Signatures: Dylan Davalos RN RN em Aysha Quevedo RN RN ea Dale Hawkins MD MD ma2 Ca Abdi ag3
[2020-08-31 23:01] VITALS: BP 118/60; TEMP 98; O2SAT 98
== END 2020-08-31 22:55 | disposition home or self-care (01) ==
LOC: ER 21:03
DX: J45.901 Unspecified asthma with (acute) exacerbation (principal); F90.9 Attention-deficit hyperactivity disorder, unspecified type
CPT/HCPCS: 99284; J7512

== ENCOUNTER 2021-02-27 17:34 | Emergency (ER) | payer BC ==
--- OUTSIDE RECORDS SUMMARY | 2021-02-27 17:36 | XMS REPORT | Continuity of Care Document ---
:1995 Author Organization [facility] t Address [address] [place] [address] Care Team Providers Name Role Phone DR [...] ID 2020-04-16 2020-04-16 Outpatient E LISA GARCIA [facility] [id number] [facility] 05:54:00 06:32:00 [facility] Results This patient has no known results.
[2021-02-27] MEDS ORDERED: ACETAMINOPHEN 500 MG TAB ONE (20:56)
--- NOTE | 2021-02-27 21:57 | EDPHYS ---
Physician Documentation [facility] Name: Paulette Lozoya Age: 25 yrs Sex: Male : 1995 Arrival Date: 02/27/2021 Time: 17:37 Bed DIS1 Private MD: ED Physician Carrington Feng HPI: 02/27 20:25 This 25 yrs old Black Male presents to ER via Ambulatory with complaints of Ear Pain. cp 20:25 The patient presents with pain, that is acute. The complaints affect the right ear. cp Onset: The symptoms/episode began/occurred 1 week(s) ago. 20:25 Associated signs and symptoms: Pertinent positives: nasal congestion, sore throat, cp Pertinent negatives: cough, fever, vertigo. Historical: - Allergies: 19:21 No Known Allergies; bb - Home Meds: 19:21 None [Active]; bb - PMHx: 19:21 None; bb - PSHx: 19:21 knee surgery; bb - Immunization history:: Adult Immunizations up to date, Client reports having NOT received the Covid vaccine. - Social history:: Smoking status: Patient reports the use of cigarette tobacco products, denies chronic smoking, but will smoke occasionally. ROS: 20:30 Constitutional: Negative for body aches, chills, fever, poor PO intake. cp 20:30 Eyes: Negative for injury, pain, redness, and discharge. cp 20:30 ENT: Positive for ear pain, sore throat, Negative for drainage from ear(s), sinus pain, difficulty swallowing, difficulty handling secretions. 20:30 Cardiovascular: Negative for chest pain. 20:30 Respiratory: Negative for cough, shortness of breath, wheezing. 20:30 Abdomen/GI: Negative for abdominal pain, nausea, vomiting, and diarrhea. 20:30 Skin: Negative for rash. 20:30 Neuro: Negative for altered mental status, headache, weakness. 20:30 All other systems are negative. Exam: 20:33 Constitutional: The patient appears in no acute distress, alert, awake, comfortable, cp non-toxic, well developed, well nourished. 20:33 Head/Face: Normocephalic, atraumatic. cp 20:33 Eyes: Periorbital structures: appear normal, Conjunctiva: normal, no exudate, no injection, Sclera: no appreciated abnormality, Lids and lashes: appear normal, bilaterally. 20:33 ENT: External ear(s): are unremarkable, Ear canal(s): are normal, clear, TM's: dullness, bilaterally, Nose: is normal, Mouth: Lips: moist, Oral mucosa: pink and intact, moist, Posterior pharynx: Airway: no evidence of obstruction, patent, Tonsils: are normal in appearance, Voice: is normal. 20:33 Neck: Lymph nodes: no appreciated lymphadenopathy. 20:33 Chest/axilla: Inspection: normal, Palpation: is normal, no crepitus, no tenderness. 20:33 Cardiovascular: Rate: normal, Rhythm: regular. 20:33 Respiratory: the patient does not display signs of respiratory distress, Respirations: normal, no use of accessory muscles, no retractions, labored breathing, is not present, Breath sounds: are clear throughout, no decreased breath sounds, no stridor, no wheezing. 20:33 Abdomen/GI: Exam negative for discomfort, distension, guarding, Inspection: abdomen appears normal. 20:33 Skin: no rash present. Vital Signs: 19:19 BP 142 / 75; Pulse 53; Resp 16 S; Temp 98.8(TE); Pulse Ox 98% on R/A; Weight 72.57 kg bb (R); Height 5 ft. 9 in. (175.26 cm) (R); Pain 3/10; 19:49 BP 97 / 75; Pulse 60; Resp 16; Pulse Ox 100% ; vg1 20:40 BP 132 / 94; Pulse 65; Resp 18; Pulse Ox 100% ; kg 19:19 Body Mass Index 23.63 (72.57 kg, 175.26 cm) MDM: 19:25 Patient medically screened. [facility] 21:55 Data reviewed: vital signs, nurses notes, lab test result(s), and as a result, I will cp discharge patient. 21:55 Differential diagnosis: otitis media, otitis externa, acute otalgia, strep throat, cp COVID-19. Counseling: I had a detailed discussion with the patient and/or guardian regarding: the historical points, exam findings, and any diagnostic results supporting the discharge/admit diagnosis, lab results. ED course: VSS. Discussed positive COVID results. Patient appears non-toxic and no signs of respiratory distress. Will discharge to home to continue to monitor and 10 day quarantine from onset of symptoms. 02/27 20:19 Order name: Strep cp 02/27 20:19 Order name: Influenza Screen (a \T\ B) cp 02/27 21:15 Order name: Throat Culture EDMS 02/27 21:47 Order name: SARS-COV-2 RT PCR EDMS Administered Medications: 20:10 Drug: Tylenol 1000 mg Route: PO; kg 22:05 Follow up: Response: No adverse reaction vg1 Disposition: 02/28 09:54 Co-signature as Attending Physician, Carrington Feng MD I agree with the assessment and [facility] plan of care. Disposition Summary: 02/27/21 21:56 Discharge Ordered Location: Home cp Problem: new cp Symptoms: have improved cp Condition: Stable cp Diagnosis - SARS-associated coronavirus as the cause of diseases classified elsewhere cp Followup: cp - With: Private Physician - When: 2 - 3 days - Reason: Worsening of condition Discharge Instructions: - Discharge Summary Sheet cp - Form - Excuse from Work, School, or Physical Activity cp - COVID-19 cp - Things to Know about the COVID-19 Pandemic - [facility] cp - 10 Things You Can Do to Manage Your COVID-19 Symptoms at Home - [facility] cp - COVID-19: Quarantine vs. Isolation - [facility] cp - Prevent the Spread of COVID-19 if You Are Sick - [facility] cp Forms: - Medication Reconciliation Form cp - Thank You Letter cp - Antibiotic Education cp - Prescription Opioid Use cp Signatures: Dispatcher [employer] EDCarrington Cueva MD MD cha Ballard, Brenda RN RN Carrington Grajeda PA PA cp Sarahi Thayer RN RN Marisela Rios RN vg1 Corrections: (The following items were deleted from the chart) 02/27 19:22 19:21 PMHx: ADD/ADHD; bb bb 19:22 19:21 PMHx: childhood asthma; emely han 20:53 20:19 CORONAVIRUS+ ordered. EDOR EDMS
--- NOTE | 2021-02-27 21:57 | ER ---
Nurse's Notes [facility] Name: Paulette Lozoya Age: 25 yrs Sex: Male : 1995 Arrival Date: 02/27/2021 Time: 17:37 Bed DIS1 Private MD: Diagnosis: SARS-associated coronavirus as the cause of diseases classified elsewhere Presentation: 02/27 19:19 Chief complaint: Patient states: he has been having ear pain for a week and has bb congestion. Coronavirus screen: congestion, headache, Client presents with at least one sign or symptom that may indicate coronavirus-19. Standard/surgical mask placed on the client. Ebola Screen: No symptoms or risks identified at this time. Initial Sepsis Screen: Does the patient meet any 2 criteria? No. Patient's initial sepsis screen is negative. Does the patient have a suspected source of infection? No. Patient's initial sepsis screen is negative. Risk Assessment: Do you want to hurt yourself or someone else? Patient reports no desire to harm self or others. Onset of symptoms was February 20, 2021. 19:19 Method Of Arrival: Ambulatory bb 19:19 Acuity: BLAKE 4 bb Historical: - Allergies: 19:21 No Known Allergies; bb - Home Meds: 19:21 None [Active]; bb - PMHx: 19:21 None; bb - PSHx: 19:21 knee surgery; bb - Immunization history:: Adult Immunizations up to date, Client reports having NOT received the Covid vaccine. - Social history:: Smoking status: Patient reports the use of cigarette tobacco products, denies chronic smoking, but will smoke occasionally. Screenin:40 Abuse screen: Denies threats or abuse. Denies injuries from another. Nutritional kg screening: No deficits noted. Tuberculosis screening: No symptoms or risk factors identified. Fall Risk None identified. Assessment: 19:26 General: Appears in no apparent distress. comfortable, Behavior is calm, cooperative. vg1 Pain: Complains of pain in right ear and throat Pain currently is 4 out of 10 on a pain scale. Quality of pain is described as aching, Pain began about a week ago. Neuro: Level of Consciousness is awake, alert, obeys commands, Oriented to person, place, time, situation. Cardiovascular: Patient's skin is warm and dry. Respiratory: Airway is patent Respiratory effort is even, unlabored, Denies cough. GI: No signs and/or symptoms were reported involving the gastrointestinal system. : No signs and/or symptoms were reported regarding the genitourinary system. EENT: Ear canal clear on right ear Throat is reddened Reports nasal congestion. Derm: Skin is intact, is healthy with good turgor. Musculoskeletal: Circulation, motion, and sensation intact. 22:04 Reassessment: Patient appears in no apparent distress at this time. No changes from vg1 previously documented assessment. Patient and/or family updated on plan of care and expected duration. Pain level reassessed. Patient is alert, oriented x 3, equal unlabored respirations, skin warm/dry/pink. Vital Signs: 19:19 BP 142 / 75; Pulse 53; Resp 16 S; Temp 98.8(TE); Pulse Ox 98% on R/A; Weight 72.57 kg bb (R); Height 5 ft. 9 in. (175.26 cm) (R); Pain 3/10; 19:49 BP 97 / 75; Pulse 60; Resp 16; Pulse Ox 100% ; vg1 20:40 BP 132 / 94; Pulse 65; Resp 18; Pulse Ox 100% ; kg 19:19 Body Mass Index 23.63 (72.57 kg, 175.26 cm) bb ED Course: 17:37 Patient arrived in ED. ds1 19:21 Triage completed. bb 19:21 Arm band placed on Patient placed in waiting room. bb 19:23 Carrington Payne PA is PHCP. cp 19:24 Oscar Otero MD is Attending Physician. cp 19:25 Marisela Hroton, RN is Primary Nurse. vg1 19:25 Attending Physician role handed off by Oscar Otero MD [facility] 19:25 Carrington Feng MD is Attending Physician. wilner 19:40 Patient has correct armband on for positive identification. kg 19:40 No provider procedures requiring assistance completed. kg 22:04 Patient did not have IV access during this emergency room visit. vg1 Administered Medications: 20:10 Drug: Tylenol 1000 mg Route: PO; kg 22:05 Follow up: Response: No adverse reaction vg1 Outcome: 21:56 Discharge ordered by . cp 22:04 Discharged to home ambulatory. vg1 22:04 Condition: stable 22:04 Discharge instructions given to patient, Instructed on discharge instructions, follow up and referral plans. Demonstrated understanding of instructions, follow-up care. 22:04 Patient left the ED. vg1 Signatures: Carrington Feng MD MD cha Sanford, Demi ds1 Melia Coe, RN RN bb Carrington Payne PA PA cp Garcia, Victoria, RN RN vg1 Sarahi Thayer RN RN kg Corrections: (The following items were deleted from the chart) 19: PMHx: ADD/ADHD; emely han 19:21 PMHx: childhood asthma; emely han
[2021-02-27 22:20] VITALS: TEMP 98.8
[2021-02-27 22:21] VITALS: O2SAT 100
[2021-02-27 22:23] VITALS: BP 132/94
== END 2021-02-27 22:04 | disposition home or self-care (01) ==
LOC: ER 17:34
DX: U07.1 COVID-19 (principal); F17.210 Nicotine dependence, cigarettes, uncomplicated
CPT/HCPCS: 87070; 87081; 87804 ×2; 99283; U0003

== ENCOUNTER 2021-03-03 10:13 | Emergency (ER) | payer BC ==
--- OUTSIDE RECORDS SUMMARY | 2021-03-03 10:16 | XMS REPORT | Continuity of Care Document ---
:1995 Author Organization [facility] Address [address] [place] [address] Dr. [address] [place] [id number] Care Team Providers Name Role Phone DR [...] ID 2020-04-16 2020-04-16 Outpatient E LISA GARCIA [facility] [id number] [facility] 05:54:00 06:32:00 [facility] Results This patient has no known results.
--- NOTE | 2021-03-03 11:47 | ER ---
Nurse's Notes [facility] Name: Paulette Lozoya Age: 25 yrs Sex: Male : 1995 Arrival Date: 03/03/2021 Time: 10:17 Bed DIS2 Private MD: Diagnosis: Other specified viral diseases;SARS-associated coronavirus as the cause of diseases classified elsewhere Presentation: 03/03 10:53 Chief complaint: Chief complaint: Patient states: was told he needed a COVID retest for iw his job. 10:54 Coronavirus screen: Client presents with at least one sign or symptom that may indicate iw coronavirus-19. Ebola Screen: Patient negative for fever greater than or equal to 101.5 degrees Fahrenheit, and additional compatible Ebola Virus Disease symptoms Patient denies exposure to infectious person. Patient denies travel to an Ebola-affected area in the 21 days before illness onset. No symptoms or risks identified at this time. Initial Sepsis Screen: Does the patient meet any 2 criteria? No. Patient's initial sepsis screen is negative. Does the patient have a suspected source of infection? No. Patient's initial sepsis screen is negative. Risk Assessment: Do you want to hurt yourself or someone else? Patient reports no desire to harm self or others. Onset of symptoms was February 12, 2021. 10:54 Method Of Arrival: Ambulatory iw 10:54 Acuity: BLAKE 5 iw Historical: - Allergies: 10:52 No Known Allergies; iw - Home Meds: 10:52 Symbicort inhalation 2 times per day [Active]; iw - PMHx: 10:52 Asthma; iw - PSHx: 10:52 knee surgery; iw - Social history:: Smoking status: Reported history of juuling and/or vaping. Screenin:57 Abuse screen: Denies threats or abuse. Denies injuries from another. Nutritional iw screening: No deficits noted. Tuberculosis screening: No symptoms or risk factors identified. Fall Risk None identified. Assessment: 10:56 General: Appears in no apparent distress. Behavior is calm, cooperative. Pain: Denies iw pain. Neuro: Level of Consciousness is awake, alert, obeys commands, Oriented to person, place, time, situation, Moves all extremities. Respiratory: Respiratory effort is even, unlabored, Respiratory pattern is regular. Vital Signs: 10:54 BP 155 / 97; Pulse 60; Resp 16; Temp 97.8; Pulse Ox 100% on R/A; iw ED Course: 10:17 Patient arrived in ED. mr 10:54 River Reno MD is Attending Physician. kdr 10:55 Triage completed. iw 10:56 Arm band placed on. iw 11:05 Mariama Taylor, RN is Primary Nurse. ss Administered Medications: No medications were administered Outcome: 11:46 Discharge ordered by . kdr 12:15 Patient left the ED. iw Signatures: River Reno MD MD [facility] mr NationJessica, RN RN iw Mariama Taylor, RN RN ss Corrections: (The following items were deleted from the chart) 10:55 10:53 Chief complaint: iw iw : 10:54 Onset of symptoms was 2020 iw iw 10:55 10:54 BP 155 / 97; Pulse 60bpm; Resp 16bpm; Pulse Ox 100% RA; Temp 97.8F; iw iw
--- NOTE | 2021-03-03 11:47 | EDPHYS ---
Physician Documentation [facility] Name: Paulette Lozoya Age: 25 yrs Sex: Male : 1995 Arrival Date: 03/03/2021 Time: 10:17 Bed DIS2 Private MD: ED Physician River Reno HPI: 03/03 11:31 This 25 yrs old Black Male presents to ER via Ambulatory with complaints of Covid kdr retest. Historical: - Allergies: 10:52 No Known Allergies; iw - Home Meds: 10:52 Symbicort inhalation 2 times per day [Active]; iw - PMHx: 10:52 Asthma; iw - PSHx: 10:52 knee surgery; iw - Social history:: Smoking status: Reported history of juuling and/or vaping. ROS: 17:17 Constitutional: Negative for fever, chills, and weight loss, Eyes: Negative for injury, kdr pain, redness, and discharge, ENT: Negative for injury, pain, and discharge, Neck: Negative for injury, pain, and swelling, Cardiovascular: Negative for chest pain, palpitations, and edema, Respiratory: Negative for shortness of breath, cough, wheezing, and pleuritic chest pain, Abdomen/GI: Negative for abdominal pain, nausea, vomiting, diarrhea, and constipation, Back: Negative for injury and pain, : Negative for injury, bleeding, discharge, and swelling, MS/Extremity: Negative for injury and deformity, Skin: Negative for injury, rash, and discoloration, Neuro: Negative for headache, weakness, numbness, tingling, and seizure activity. Psych: Negative for depression, anxiety, suicide ideation, homicidal ideation, and hallucinations, Allergy/Immunology: Negative for hives, rash, and allergies, Endocrine: Negative for neck swelling, polydipsia, polyuria, polyphagia, and marked weight changes, Hematologic/Lymphatic: Negative for swollen nodes, abnormal bleeding, and unusual bruising. Exam: 17:17 Constitutional: This is a well developed, well nourished patient who is awake, alert, kdr and in no acute distress. Head/Face: Normocephalic, atraumatic. Eyes: Pupils equal round and reactive to light, extra-ocular motions intact. Lids and lashes normal. Conjunctiva and sclera are non-icteric and not injected. Cornea within normal limits. Periorbital areas with no swelling, redness, or edema. Neck: Trachea midline, no thyromegaly or masses palpated, and no cervical lymphadenopathy. Supple, full range of motion without nuchal rigidity, or vertebral point tenderness. No Meningismus. Chest/axilla: Normal chest wall appearance and motion. Nontender with no deformity. No lesions are appreciated. Cardiovascular: Regular rate and rhythm with a normal S1 and S2. No gallops, murmurs, or rubs. Normal PMI, no JVD. No pulse deficits. Respiratory: Lungs have equal breath sounds bilaterally, clear to auscultation and percussion. No rales, rhonchi or wheezes noted. No increased work of breathing, no retractions or nasal flaring. Abdomen/GI: Soft, non-tender, with normal bowel sounds. No distension or tympany. No guarding or rebound. No evidence of tenderness throughout. Back: No spinal tenderness. No costovertebral tenderness. Full range of motion. Skin: Warm, dry with normal turgor. Normal color with no rashes, no lesions, and no evidence of cellulitis. MS/ Extremity: Pulses equal, no cyanosis. Neurovascular intact. Full, normal range of motion. Neuro: Awake and alert, GCS 15, oriented to person, place, time, and situation. Cranial nerves II-XII grossly intact. Motor strength 5/5 in all extremities. Sensory grossly intact. Cerebellar exam normal. Normal gait. Psych: Awake, alert, with orientation to person, place and time. Behavior, mood, and affect are within normal limits. Vital Signs: 10:54 BP 155 / 97; Pulse 60; Resp 16; Temp 97.8; Pulse Ox 100% on R/A; iw MDM: 11:46 Patient medically screened. kdr 17:17 Data reviewed: vital signs, nurses notes, lab test result(s). Counseling: I had a kdr detailed discussion with the patient and/or guardian regarding: the historical points, exam findings, and any diagnostic results supporting the discharge/admit diagnosis, lab results, the need for outpatient follow up. Administered Medications: No medications were administered Disposition Summary: 03/03/21 11:46 Discharge Ordered Location: Home kdr Problem: new kdr Symptoms: are resolved kdr Condition: Stable kdr Diagnosis - Other specified viral diseases kdr - SARS-associated coronavirus as the cause of diseases classified elsewhere kdr Followup: kdr - With: Private Physician - When: 2 - 3 days - Reason: If symptoms return, Further diagnostic work-up, Recheck today's complaints, Continuance of care, Re-evaluation by your physician Discharge Instructions: - Discharge Summary Sheet kdr - COVID-19 kdr - Things to Know about the COVID-19 Pandemic - [facility] kdr - 10 Things You Can Do to Manage Your COVID-19 Symptoms at Home - [facility] kdr - COVID-19: Keep Your Baby Healthy and Safe - [facility] kdr - COVID-19: Quarantine vs. Isolation - [facility] kdr - Prevent the Spread of COVID-19 if You Are Sick - [facility] kdr Forms: - Medication Reconciliation Form kdr - Thank You Letter kdr - Work release form eb Signatures: River Reno MD MD kdr Jessica Nation RN RN iw
[2021-03-03 12:21] VITALS: BP 155/97; TEMP 97.8; O2SAT 100
== END 2021-03-03 12:15 | disposition home or self-care (01) ==
LOC: ER 10:13
DX: U07.1 COVID-19 (principal)
CPT/HCPCS: 99281

== ENCOUNTER 2021-10-07 11:19 | Emergency (ER) | payer BC ==
--- OUTSIDE RECORDS SUMMARY | 2021-10-07 11:20 | XMS REPORT | Continuity of Care Document ---
:1995 Author Organization [facility] t Address [address] [place] [address] Care Team Providers Name Role Phone DR JOSE Attending Clinician Unavailable DR JOSE Admitting Clinician Unavailable Problems This patient has no known problems. Allergies, Adverse Reactions, Alerts Allergy Allergy Status Severity Reaction(s) Onset Inactive Treating Comm ents Source Name Type Date Date Clinician No Known [facility] Medications This patient has no known medications. Vital Signs Vital Name Observation Time Observation Value Comments Source Height 2020-04-16 06:00:00 175.26 CM Weight 2020-04-16 06:00:00 70.3 KG Procedures This patient has no known procedures. Encounters Start End Encounter Admission Attending Care Care Encounter Source Date/Time Date/Time Type Type Clinicians Facility Department ID 2020-04-16 2020-04-16 Outpatient E LISA GARCIA [facility] [id number] [facility] 05:54:00 06:32:00 [facility] Results This patient has no known results.
--- NOTE | 2021-10-07 11:33 | ER ---
Nurse's Notes [facility] Name: Paulette Lozoya Age: 25 yrs Sex: Male : 1995 Arrival Date: 10/07/2021 Time: 11:21 Bed Waiting Private MD: Diagnosis: Encounter for issue of repeat prescription Presentation: 10/07 11:27 Chief complaint: Patient states: Symbicort and albuterol refill needed; states missed vg1 appt yesterday. Coronavirus screen: Vaccine status: Patient reports receiving the 2nd dose of the covid vaccine. Client denies travel out of the [place] in the last 14 days. Ebola Screen: Patient negative for fever greater than or equal to 101.5 degrees Fahrenheit, and additional compatible Ebola Virus Disease symptoms. Initial Sepsis Screen: Does the patient meet any 2 criteria? No. Patient's initial sepsis screen is negative. Does the patient have a suspected source of infection? No. Patient's initial sepsis screen is negative. Risk Assessment: Do you want to hurt yourself or someone else? Patient reports no desire to harm self or others. Onset of symptoms was October 07, 2021. 11:27 Method Of Arrival: Ambulatory vg1 11:27 Acuity: BLAKE 5 vg1 Triage Assessment: 11:29 General: Appears in no apparent distress. comfortable, Behavior is calm, cooperative. vg1 Pain: Denies pain. Historical: - Allergies: 11:29 No Known Allergies; vg1 - Home Meds: 11:29 Symbicort inhalation 2 times per day [Active]; Albuterol Inhl [Active]; vg1 - PMHx: 11:29 Asthma; vg1 - PSHx: 11:29 knee surgery; vg1 - Immunization history:: Client reports receiving the 2nd dose of the Covid vaccine. - Social history:: Smoking status: Patient reports the use of cigarette tobacco products, denies chronic smoking, but will smoke occasionally. Screenin:30 Abuse screen: Denies threats or abuse. Nutritional screening: No deficits noted. vg1 Tuberculosis screening: No symptoms or risk factors identified. Fall Risk None identified. Vital Signs: 11:27 BP 140 / 77; Pulse 62; Resp 15; Temp 98.1; Pulse Ox 99% ; Weight 73.48 kg; Height 5 ft. vg1 9 in. (175.26 cm); Pain 0/10; 11:27 Body Mass Index 23.92 (73.48 kg, 175.26 cm) vg1 ED Course: 11:21 Patient arrived in ED. as 11:21 Lindsay Olson FNP-C is [facility]. kb 11:21 Dale Hawkins MD is Attending Physician. kb 11:29 Triage completed. vg1 11:29 Arm band placed on. vg1 11:30 Patient has correct armband on for positive identification. vg1 11:30 No provider procedures requiring assistance completed. Patient did not have IV access vg1 during this emergency room visit. Administered Medications: No medications were administered Outcome: 11:30 Discharged to home ambulatory. vg1 11:30 Condition: good 11:30 Discharge instructions given to patient, Instructed on discharge instructions, follow up and referral plans. medication usage, Demonstrated understanding of instructions, follow-up care, medications, Prescriptions given X 2. 11:32 Discharge ordered by . kb 11:36 Patient left the ED. vg1 Signatures: Lindsay Olson FNP-C FNP-Ckb Martinez, Amelia as Garcia, Victoria, RN RN vg1
--- NOTE | 2021-10-07 11:33 | EDPHYS ---
Physician Documentation [facility] Name: Paulette Lozoya Age: 25 yrs Sex: Male : 1995 Arrival Date: 10/07/2021 Time: 11:21 Bed Waiting Private MD: ED Physician Dale Hawkins HPI: 10/07 11:29 This 25 yrs old Black Male presents to ER via Ambulatory with complaints of Medication kb Refill. 11:29 The patient presents to the emergency department requesting refill(s) for: albuterol kb and symbicort. The patient chronically suffers from asthma. The patient has not experienced similar symptoms in the past. The patient has not recently seen a physician. Pt states he was working and missed his appt in [place] to get refills on inhalers so he came here to get them. Historical: - Allergies: 11:29 No Known Allergies; vg1 - Home Meds: 11:29 Symbicort inhalation 2 times per day [Active]; Albuterol Inhl [Active]; vg1 - PMHx: 11:29 Asthma; vg1 - PSHx: 11:29 knee surgery; vg1 - Immunization history:: Client reports receiving the 2nd dose of the Covid vaccine. - Social history:: Smoking status: Patient reports the use of cigarette tobacco products, denies chronic smoking, but will smoke occasionally. ROS: 11:29 Constitutional: Negative for fever, chills, and weight loss. kb 11:29 All other systems are negative. Exam: 11:29 Constitutional: This is a well developed, well nourished patient who is awake, alert, kb and in no acute distress. Head/Face: Normocephalic, atraumatic. ENT: Moist Mucous membranes Cardiovascular: Regular rate and rhythm with a normal S1 and S2. No gallops, murmurs, or rubs. No pulse deficits. Respiratory: Respirations even and unlabored. No increased work of breathing. Talking in full sentences Skin: Warm, dry with normal turgor. Normal color. MS/ Extremity: Pulses equal, no cyanosis. Neurovascular intact. Full, normal range of motion. Neuro: Awake and alert, GCS 15, oriented to person, place, time, and situation. Moves all extremities. Normal gait. Psych: Awake, alert, with orientation to person, place and time. Behavior, mood, and affect are within normal limits. Vital Signs: 11:27 BP 140 / 77; Pulse 62; Resp 15; Temp 98.1; Pulse Ox 99% ; Weight 73.48 kg; Height 5 ft. vg1 9 in. (175.26 cm); Pain 0/10; 11:27 Body Mass Index 23.92 (73.48 kg, 175.26 cm) vg1 MDM: 11:29 Patient medically screened. kb 11:31 Data reviewed: vital signs, nurses notes. Data interpreted: Pulse oximetry: on room air kb is 99 %. Interpretation: normal. Counseling: I had a detailed discussion with the patient and/or guardian regarding: the historical points, exam findings, and any diagnostic results supporting the discharge/admit diagnosis, the need for outpatient follow up, a family practitioner, to return to the emergency department if symptoms worsen or persist or if there are any questions or concerns that arise at home. Administered Medications: No medications were administered Disposition Summary: 10/07/21 11:32 Discharge Ordered Location: Home kb Condition: Stable kb Diagnosis - Encounter for issue of repeat prescription kb Followup: kb - With: Emergency Department - When: As needed - Reason: Worsening of condition Followup: kb - With: Private Physician - When: 2 - 3 days - Reason: Recheck today's complaints, Continuance of care, Re-evaluation by your physician Discharge Instructions: - Discharge Summary Sheet kb - Medicine Refill at the Emergency Department kb Forms: - Medication Reconciliation Form kb - Thank You Letter kb - Antibiotic Education kb - Prescription Opioid Use kb - Work release form vg1 Prescriptions: - Symbicort 80-4.5 mcg/actuation Inhalation HFA aerosol inhaler - inhale 2 puff by INHALATION route 2 times per day; 1 Inhaler; Refills: 0, kb Product Selection Permitted - albuterol sulfate 90 mcg/actuation Inhalation HFA aerosol inhaler - inhale 2 puff by INHALATION route every 4-6 hours As needed; 1 Inhaler; kb Refills: 0, Product Selection Permitted Signatures: Lindsay Olson, Marisela Mattson, RN RN vg1
[2021-10-07 11:42] VITALS: BP 140/77; TEMP 98.1; O2SAT 99
== END 2021-10-07 11:36 | disposition home or self-care (01) ==
LOC: ER 11:19
DX: Z76.0 Encounter for issue of repeat prescription (principal)
CPT/HCPCS: 99282

== ENCOUNTER 2021-10-11 11:00 | Emergency (ER) | payer BC ==
--- OUTSIDE RECORDS SUMMARY | 2021-10-11 11:03 | XMS REPORT | Continuity of Care Document ---
:1995 Author Organization [facility] t Address [address] [place] [address] Care Team Providers Name Role Phone DR JOSE Attending Clinician Unavailable DR JOSE Admitting Clinician Unavailable Problems This patient has no known problems. Allergies, Adverse Reactions, Alerts Allergy Allergy Status Severity Reaction(s) Onset Inactive Treating Comm ents Source Name Type Date Date Clinician No Known DA Active [facility] Medications This patient has no known medications. Vital Signs Vital Name Observation Time Observation Value Comments Source Height 2020-04-16 06:00:00 175.26 CM Weight 2020-04-16 06:00:00 70.3 KG Procedures This patient has no known procedures. Encounters Start End Encounter Admission Attending Care Care Encounter Source Date/Time Date/Time Type Type Clinicians Facility Department ID 2020-04-16 2020-04-16 Outpatient E LISA GARCIA [facility] [id number] [facility] 05:54:00 06[facility]32:00 [facility] Results This patient has no known results.
[2021-10-11] MEDS ORDERED: ALBUTEROL 2.5 MG/3 ML NEB SOL ONE (11:27)
--- NOTE | 2021-10-11 11:43 | EDPHYS ---
Physician Documentation [facility] Name: Paulette Lozoya Age: 25 yrs Sex: Male : 1995 Arrival Date: 10/11/2021 Time: 11:03 Bed 12 Private MD: ED Physician Oscar Otero HPI: 10/11 11:40 This 25 yrs old Black Male presents to ER via Ambulatory with complaints of Asthma rn Exacerbation. 11:40 The patient presents to the emergency department with wheezing, Current therapy: rn albuterol nebs. Onset: The symptoms/episode began/occurred this morning. Modifying factors: The symptoms are alleviated by nothing, the symptoms are aggravated by dust. Associated signs and symptoms: Pertinent negatives: chest pain, fever. Severity of symptoms: At their worst the symptoms were mild in the emergency department the symptoms are unchanged. The patient has experienced similar episodes in the past. REports at work, was in cold air and dust, felt like needed breathing treatment, no recent fever or illness. Has prescription for albuterol neb medication but will not get filled until tomorrow. . Historical: - Allergies: 11:12 No Known Allergies; ab2 - Home Meds: 11:12 Symbicort inhalation 2 times per day [Active]; Albuterol Inhl [Active]; ab2 - PMHx: 11:12 Asthma; ab2 - PSHx: 11:12 knee surgery; ab2 - Immunization history:: Adult Immunizations up to date. - Social history:: Smoking status: Patient denies any tobacco usage or history of. - Family history:: not pertinent. - Hospitalizations: : No recent hospitalization is reported. ROS: 11:40 Constitutional: Negative for fever, chills, and weight loss, Eyes: Negative for injury, rn pain, redness, and discharge, Neck: Negative for injury, pain, and swelling, Cardiovascular: Negative for chest pain, palpitations, and edema, Respiratory: + wheezing and sob. Abdomen/GI: Negative for abdominal pain, nausea, vomiting, diarrhea, and constipation, Back: Negative for injury and pain, MS/Extremity: Negative for injury and deformity, Skin: Negative for injury, rash, and discoloration, Neuro: Negative for headache, weakness, numbness, tingling, and seizure. Exam: 11:40 Constitutional: This is a well developed, well nourished patient who is awake, alert, rn and in no acute distress. Legs crossed and on phone. Head/Face: Normocephalic, atraumatic. Cardiovascular: Regular rate and rhythm. No pulse deficits. Respiratory: Speaking full sentences, unlabored. No increased work of breathing, no retractions or nasal flaring. Neuro: Awake and alert, GCS 15 Vital Signs: 11:10 BP 135 / 61; Pulse 67; Resp 17; Temp 98.0(TE); Pulse Ox 97% on R/A; Weight 73.48 kg; ab2 Height 5 ft. 9 in. (175.26 cm); Pain 0/10; 11:10 Body Mass Index 23.92 (73.48 kg, 175.26 cm) ab2 MDM: 11:16 Patient medically screened. rn 11:40 Differential diagnosis: acute asthma, reactive airway. Antibiotic administration: Not rn indicated. Data reviewed: vital signs, nurses notes. Data reviewed: old medical records, and as a result, I will discharge patient. Counseling: I had a detailed discussion with the patient and/or guardian regarding: the historical points, exam findings, and any diagnostic results supporting the discharge/admit diagnosis, the need for outpatient follow up, to return to the emergency department if symptoms worsen or persist or if there are any questions or concerns that arise at home. Response to treatment: the patient's symptoms have markedly improved after treatment, and as a result, I will discharge patient. Special discussion: I discussed with the patient/guardian in detail that at this point there is no indication for admission to the hospital. It is understood, however, that if the symptoms persist or worsen the patient needs to return immediately for re-evaluation. Administered Medications: 11:25 Drug: Albuterol 2.5 mg Route: Inhalation; ss 11:48 Drug: predniSONE 60 mg Route: PO; ss 11:48 Follow up: Response: No adverse reaction; Medication administered at discharge. Disposition Summary: 10/11/21 11:42 Discharge Ordered Location: Home rn Problem: an acute exacerbation rn Symptoms: have improved rn Condition: Stable rn Diagnosis - Mild persistent asthma with (acute) exacerbation rn Followup: rn - With: Private Physician - When: As needed - Reason: Recheck today's complaints, Re-evaluation by your physician Discharge Instructions: - Discharge Summary Sheet rn - Asthma, Adult rn Forms: - Medication Reconciliation Form rn - Thank You Letter rn - Antibiotic roller turner - Prescription Opioid Use rn - Work release form ss Prescriptions: - Prednisone 20 mg Oral Tablet - take 3 tablets by ORAL route once daily for 5 days; 15 tablet; Refills: 0, rn Product Selection Permitted Signatures: Oscar Otero MD MD rn Smirch, Shelby, RN RN ss Bleininger, Alexis ab2
--- NOTE | 2021-10-11 11:43 | ER ---
Nurse's Notes [facility] Name: Paulette Lozoya Age: 25 yrs Sex: Male : 1995 Arrival Date: 10/11/2021 Time: 11:03 Bed 12 Private MD: Diagnosis: Mild persistent asthma with (acute) exacerbation Presentation: 10/11 11:10 Chief complaint: Patient states: "I came here a couple days ago for a refill on my ab2 nebulizer but the prescription is not here yet and I need a treatment now.". Coronavirus screen: Vaccine status: Patient reports receiving the 2nd dose of the covid vaccine. Client denies travel out of the [place] in the last 14 days. At this time, the client does not indicate any symptoms associated with coronavirus-19. Ebola Screen: Patient negative for fever greater than or equal to 101.5 degrees Fahrenheit, and additional compatible Ebola Virus Disease symptoms Patient denies exposure to infectious person. Patient denies travel to an Ebola-affected area in the 21 days before illness onset. No symptoms or risks identified at this time. Initial Sepsis Screen: Does the patient meet any 2 criteria? No. Patient's initial sepsis screen is negative. Does the patient have a suspected source of infection? No. Patient's initial sepsis screen is negative. Risk Assessment: Do you want to hurt yourself or someone else? Patient reports no desire to harm self or others. Onset of symptoms is unknown. 11:10 Method Of Arrival: Ambulatory ab2 11:10 Acuity: BLAKE 3 ab2 Triage Assessment: 11:13 General: Appears in no apparent distress. comfortable, Behavior is calm, cooperative, ab2 appropriate for age. Pain: Denies pain. Respiratory: Reports shortness of breath Airway is patent Respiratory effort is even, unlabored, Respiratory pattern is regular, symmetrical. Historical: - Allergies: 11:12 No Known Allergies; ab2 - Home Meds: 11:12 Symbicort inhalation 2 times per day [Active]; Albuterol Inhl [Active]; ab2 - PMHx: 11:12 Asthma; ab2 - PSHx: 11:12 knee surgery; ab2 - Immunization history:: Adult Immunizations up to date. - Social history:: Smoking status: Patient denies any tobacco usage or history of. - Family history:: not pertinent. - Hospitalizations: : No recent hospitalization is reported. Screenin:20 Abuse screen: Denies threats or abuse. Denies injuries from another. Nutritional ss screening: No deficits noted. Tuberculosis screening: Never had TB. Fall Risk None identified. Assessment: 11:20 General: Appears in no apparent distress. comfortable, Behavior is calm, cooperative, ss Denies fever, feeling ill, fatigue, chills. Pain: Denies pain. Neuro: Level of Consciousness is awake, alert, obeys commands, Oriented to person, place, time, situation. Cardiovascular: Capillary refill < 3 seconds is brisk in bilateral fingers. Respiratory: Airway is patent Respiratory effort is even, unlabored, Respiratory pattern is regular, symmetrical. GI: No signs and/or symptoms were reported involving the gastrointestinal system. EENT: Nares are clear. Derm: Skin is intact, is healthy with good turgor, Skin is pink, warm \\T\\ dry. normal. 11:50 Reassessment: Patient appears in no apparent distress at this time. Patient and/or ss family updated on plan of care and expected duration. Pain level reassessed. Patient is alert, oriented x 3, equal unlabored respirations, skin warm/dry/pink. Vital Signs: 11:10 BP 135 / 61; Pulse 67; Resp 17; Temp 98.0(TE); Pulse Ox 97% on R/A; Weight 73.48 kg; ab2 Height 5 ft. 9 in. (175.26 cm); Pain 0/10; 11:10 Body Mass Index 23.92 (73.48 kg, 175.26 cm) ab2 ED Course: 11:03 Patient arrived in ED. kz 11:12 Triage completed. ab2 11:13 Arm band placed on right wrist. ab2 11:16 Oscar Otero MD is Attending Physician. rn 11:20 Patient has correct armband on for positive identification. Bed in low position. Call ss light in reach. 11:22 Mariama Taylor, SELINA is Primary Nurse. ss 11:50 No provider procedures requiring assistance completed. Patient did not have IV access ss during this emergency room visit. Administered Medications: 11:25 Drug: Albuterol 2.5 mg Route: Inhalation; ss 11:48 Drug: predniSONE 60 mg Route: PO; ss 11:48 Follow up: Response: No adverse reaction; Medication administered at discharge. Outcome: 11:42 Discharge ordered by . rn 11:50 Discharged to home ambulatory. 11:50 Condition: good 11:50 Discharge instructions given to patient, Instructed on discharge instructions, follow up and referral plans. medication usage, Demonstrated understanding of instructions, follow-up care, medications, Prescriptions given X 1. 11:51 Patient left the ED. Signatures: Oscar Otero MD MD rn Smirch, Shelby, RN RN Srinivas Solorio Kelly kz
[2021-10-11] MEDS ORDERED: predniSONE 20 MG TAB ONE (11:49)
[2021-10-11 11:58] VITALS: BP 135/61; TEMP 98; O2SAT 97
== END 2021-10-11 11:51 | disposition home or self-care (01) ==
LOC: ER 11:00
DX: J45.31 Mild persistent asthma with (acute) exacerbation (principal)
CPT/HCPCS: 99284; J7512

== ENCOUNTER 2021-10-24 07:32 | Emergency (ER) | payer BC, OTHER ==
--- OUTSIDE RECORDS SUMMARY | 2021-10-24 07:34 | XMS REPORT | Continuity of Care Document ---
:1995 Author Organization [facility] t Address [address] [place] [address] Care Team Providers Name Role Phone DR JOSE Attending Clinician Unavailable DR JOSE Admitting Clinician Unavailable Problems This patient has no known problems. Allergies, Adverse Reactions, Alerts Allergy Allergy Status Severity Reaction(s) Onset Inactive Treating Comm ents Source Name Type Date Date Clinician No Known DA Active [facility] Medications This patient has no known medications. Vital Signs Vital Name Observation Time Observation Value Comments Source Height 2020-04-16 06:00:00 175.26 CM Weight 2020-04-16 06:00:00 70.3 KG Procedures This patient has no known procedures. Encounters Start End Encounter Admission Attending Care Care Encounter Source Date/Time Date/Time Type Type Clinicians Facility Department ID 2020-04-16 2020-04-16 Outpatient E LISA [facility] [id number] [facility] 05:54:00 06:32:00 [facility] Results This patient has no known results.
--- NOTE | 2021-10-24 10:33 | ER ---
Nurse's Notes [facility] Name: Paulette Lozoya Age: 25 yrs Sex: Male : 1995 Arrival Date: 10/24/2021 Time: 07:37 Bed 11 Private MD: Diagnosis: Infectious gastroenteritis and colitis, unspecified Presentation: 10/24 07:53 Chief complaint: Patient states: he stared having abdominal pain Saturday10/20/2021. ap3 Patient states that today is the first day he has been able to get up and come get evaluated, however he says that his symptoms have improved. He states he is here to get evaluated for abdominal pain and get a work note and clearance to return to work. Coronavirus screen: At this time, the client does not indicate any symptoms associated with coronavirus-19. Ebola Screen: No symptoms or risks identified at this time. Initial Sepsis Screen:. Initial Sepsis Screen: Does the patient meet any 2 criteria? No. Patient's initial sepsis screen is negative. Does the patient have a suspected source of infection? No. Patient's initial sepsis screen is negative. Risk Assessment: Do you want to hurt yourself or someone else? Patient reports no desire to harm self or others. Onset of symptoms was October 20, 2021. 07:53 Method Of Arrival: Ambulatory ap3 07:53 Acuity: BLAKE 3 ap3 Triage Assessment: 07:57 General: Appears in no apparent distress. comfortable, Behavior is calm, cooperative, ap3 appropriate for age. Pain: Complains of pain in abdomen Pain currently is 5 out of 10 on a pain scale. Quality of pain is described as aching, throbbing, Pain began gradually, 2-3 days ago. Also complains of nausea, vomiting. Neuro: Level of Consciousness is awake, alert, obeys commands, Oriented to person, place, time, situation. Cardiovascular: Patient's skin is warm and dry. Respiratory: Airway is patent Respiratory effort is even, unlabored. GI: Reports lower abdominal pain, upper abdominal pain, nausea, vomiting. Historical: - Home Meds: 07:56 Albuterol Inhl [Active]; Symbicort inhalation 2 times per day [Active]; ap3 - PMHx: 07:56 Asthma; ap3 - PSHx: 07:56 knee surgery; ap3 - Immunization history:: Client reports receiving the 2nd dose of the Covid vaccine, Flu vaccine status is unknown. - Social history:: Smoking status: Patient reports the use of cigarette tobacco products, cigars. Screenin:59 Abuse screen: Denies threats or abuse. Nutritional screening: Has had N/V for 3 or more ap3 days. Tuberculosis screening: No symptoms or risk factors identified. Fall Risk None identified. Assessment: 10:33 General: Appears in no apparent distress. Behavior is calm, cooperative. Pain: Denies iw pain. Neuro: Level of Consciousness is awake, alert, obeys commands, Oriented to person, place, time, situation, Moves all extremities. Full function. Cardiovascular: Patient's skin is warm and dry. Respiratory: Respiratory effort is even, unlabored, Respiratory pattern is regular, symmetrical. GI: Bowel sounds present X 4 quads. Abd is soft and non tender X 4 quads. Derm: Skin is intact, is healthy with good turgor. Musculoskeletal: Range of motion: intact in all extremities. Vital Signs: 07:53 Pulse 64; Temp 98.6; Pulse Ox 100% ; Weight 72.57 kg; Height 5 ft. 9 in. (175.26 cm); ap3 Pain 5/10; 07:53 Body Mass Index 23.63 (72.57 kg, 175.26 cm) ap3 ED Course: 07:37 Patient arrived in ED. ds1 07:56 Triage completed. ap3 07:58 Arm band placed on right wrist. ap3 10:25 Skye Siegel MD is Attending Physician. sp3 10:33 Jessica Nation RN is Primary Nurse. iw 10:34 No provider procedures requiring assistance completed. Patient did not have IV access iw during this emergency room visit. 10:55 Patient has correct armband on for positive identification. iw Administered Medications: No medications were administered Outcome: 10:32 Discharge ordered by . sp3 10:41 Discharged to home ambulatory, with family. iw 10:41 Condition: good 10:41 Discharge instructions given to patient, Instructed on discharge instructions, follow up and referral plans. Demonstrated understanding of instructions, follow-up care. 10:42 Patient left the ED. iw Signatures: Mia Law ds1 Jessica Nation RN RN iw Vivian Fowler RN RN ap3 Siegel, Setul, MD MD sp3
--- NOTE | 2021-10-24 10:33 | EDPHYS ---
Physician Documentation [facility] Name: Paulette Lozoya Age: 25 yrs Sex: Male : 1995 Arrival Date: 10/24/2021 Time: 07:37 Bed 11 Private MD: ED Physician Skye Siegel HPI: 10/24 10:29 This 25 yrs old Black Male presents to ER via Ambulatory with complaints of Abdominal sp3 Pain. 10:29 25-year-old male with no significant past medical history except asthma presents to the [facility] ED for a now resolved gastroenteritis that started on Saturday with nausea, vomiting, diarrhea after "eating bad food". Patient states that his pain is subsided over the weekend and he presents to the ED for evaluation and clearance to return to work as per his employer requirement. Patient is completely asymptomatic at this time. Patient was able to tolerate dinner last night and breakfast this morning without any difficulty. Diarrhea has also resolved. Patient denies fever, chest pain, shortness of breath, any other concerning symptoms.. Historical: - Home Meds: 07:56 Albuterol Inhl [Active]; Symbicort inhalation 2 times per day [Active]; ap3 - PMHx: 07:56 Asthma; ap3 - PSHx: 07:56 knee surgery; ap3 - Immunization history:: Client reports receiving the 2nd dose of the Covid vaccine, Flu vaccine status is unknown. - Social history:: Smoking status: Patient reports the use of cigarette tobacco products, cigars. ROS: 10:30 Constitutional: Negative for fever, chills, and weight loss, Eyes: Negative for injury, sp3 pain, redness, and discharge, ENT: Negative for injury, pain, and discharge, Neck: Negative for injury, pain, and swelling, Cardiovascular: Negative for chest pain, palpitations, and edema, Respiratory: Negative for shortness of breath, cough, wheezing, and pleuritic chest pain, Back: Negative for injury and pain, MS/Extremity: Negative for injury and deformity, Skin: Negative for injury, rash, and discoloration, Neuro: Negative for headache, weakness, numbness, tingling, and seizure, Psych: Negative for depression, anxiety, suicide ideation, homicidal ideation, and hallucinations, Allergy/Immunology: Negative for hives, rash, and allergies, Endocrine: Negative for neck swelling, polydipsia, polyuria, polyphagia, and marked weight changes. 10:30 All other systems are negative. Exam: 10:30 Constitutional: This is a well developed, well nourished patient who is awake, alert, sp3 and in no acute distress. Head/Face: Normocephalic, atraumatic. Neck: Trachea midline, no thyromegaly or masses palpated, and no cervical lymphadenopathy. Supple, full range of motion without nuchal rigidity, or vertebral point tenderness. No Meningismus. Chest/axilla: Normal chest wall appearance and motion. Nontender with no deformity. No lesions are appreciated. Cardiovascular: Regular rate and rhythm with a normal S1 and S2. No gallops, murmurs, or rubs. Normal PMI, no JVD. No pulse deficits. Respiratory: Lungs have equal breath sounds bilaterally, clear to auscultation and percussion. No rales, rhonchi or wheezes noted. No increased work of breathing, no retractions or nasal flaring. Abdomen/GI: Soft, non-tender, with normal bowel sounds. No distension or tympany. No guarding or rebound. No evidence of tenderness throughout. Back: No spinal tenderness. No costovertebral tenderness. Full range of motion. Skin: Warm, dry with normal turgor. Normal color with no rashes, no lesions, and no evidence of cellulitis. MS/ Extremity: Pulses equal, no cyanosis. Neurovascular intact. Full, normal range of motion. Neuro: Awake and alert, GCS 15, oriented to person, place, time, and situation. Cranial nerves II-XII grossly intact. Motor strength 5/5 in all extremities. Sensory grossly intact. Cerebellar exam normal. Normal gait. Vital Signs: 07:53 Pulse 64; Temp 98.6; Pulse Ox 100% ; Weight 72.57 kg; Height 5 ft. 9 in. (175.26 cm); ap3 Pain 5/10; 07:53 Body Mass Index 23.63 (72.57 kg, 175.26 cm) ap3 MDM: 10:31 Data reviewed: vital signs, nurses notes. ED course: Patient is clinically stable and sp3 all symptoms are resolved. Will discharge patient with clearance to return to work for today.. 10:32 Patient medically screened. sp3 Administered Medications: No medications were administered Disposition Summary: 04/05/22 10:32 Discharge Ordered Location: Home sp3 Condition: Stable sp3 Diagnosis - Infectious gastroenteritis and colitis, unspecified sp3 Followup: sp3 - With: Private Physician - When: Upon discharge from the Emergency Department - Reason: If symptoms return Discharge Instructions: - Discharge Summary Sheet sp3 - Form - Return To Work sp3 Forms: - Medication Reconciliation Form sp3 - Thank You Letter sp3 - Antibiotic Education sp3 - Prescription Opioid Use sp3 Signatures: Vivian Fowler RN RN ap3 Skye Siegel MD MD sp3
[2021-10-24 14:23] VITALS: TEMP 98.6; O2SAT 100
== END 2021-10-24 10:42 | disposition home or self-care (01) ==
LOC: ER 07:32
DX: A09 Infectious gastroenteritis and colitis, unspecified (principal); J45.909 Unspecified asthma, uncomplicated; F17.290 Nicotine dependence, other tobacco product, uncomplicated
CPT/HCPCS: 99281

== ENCOUNTER 2022-01-17 06:41 | Emergency (ER) | payer BC, OTHER ==
[2022-01-17 07:01] LABS: Absolute Lymphocytes (CBC) 2.3 K/uL (0.7-4.9); Hematocrit 43.4 % (39.6-49.0); Lymphocytes % 46.4 % (15.3-44.8); MPV 8.2 fL (7.6-11.3); RBC Red Blood Cell Count 4.98 M/uL (4.33-5.43)
[2022-01-17] MEDS ORDERED: ALBUTEROL 2.5 MG/3 ML NEB SOL ONE (07:03)
[2022-01-17] MEDS ORDERED: IPRATROPIUM BROM 0.5MG/2.5ML ONE (07:03)
[2022-01-17] MEDS ORDERED: METHYLPREDNISOLONE 125 MG INJ ONE (07:12)
--- NOTE | 2022-01-17 07:25 | RAD REPORT ---
EXAM DESCRIPTION: RAD - Chest Single View - 01/17/2022 7:08 am CLINICAL HISTORY: CHEST PAIN COMPARISON: Chest Pa And Lat (2 Views) dated 05/02/2019; Chest Pa And Lat (2 Views) dated 05/22/2018 FINDINGS: Lines: None. Lungs: No evidence of edema or pneumonia. Pleural: No significant pleural effusions or pneumothorax. Cardiac: The heart size is within normal limits. Bones: No acute fractures. Other: IMPRESSION: No acute cardiopulmonary disease.
[2022-01-17 07:37] LABS: Blood Morphology Comment NOT SEEN (NOT SEEN); Platelet Estimate ADEQ
[2022-01-17 08:32] LABS: BUN Blood Urea Nitrogen 15 mg/dL (7-18); Bicarbonate 25 mmol/L (21-32); Glomerular Filtration Rate 100 ml/min (=/>90); Glucose Level 88 mg/dL (74-106); NT PRO-BNP 30 pg/mL (<125); Potassium 3.4 mmol/L (3.5-5.1); Sodium Level 139 mmol/L (136-145)
[2022-01-17 08:41] LABS: Troponin High Sensitivity < 3.0 pg/mL (<58.9)
--- NOTE | 2022-01-17 08:42 | EDPHYS ---
Physician Documentation [facility] Name: Paulette Lozoya Age: 26 yrs Sex: Male : 1995 Arrival Date: 01/17/2022 Time: 06:42 Bed 20 Private MD: ED Physician Carrington Feng HPI: 01/17 07:00 This 26 yrs old Black Male presents to ER via Ambulatory with complaints of Breathing kdr Difficulty, Asthma Exacerbation. 07:00 The patient has shortness of breath at rest, with light activity. Onset: The kdr symptoms/episode began/occurred last night. Duration: The symptoms are continuous, and are steadily getting worse. The patient's shortness of breath is aggravated by exertion, light activity, talking, walking. Associated signs and symptoms: The patient has no apparent associated signs or symptoms. Severity of symptoms: At their worst the symptoms were moderate. The patient has experienced similar episodes in the past, multiple times. The patient has not recently seen a physician. Historical: - Allergies: 07:04 No Known Allergies; sm5 - Home Meds: 06:50 Albuterol Inhl [Active]; Symbicort inhalation 2 times per day [Active]; sm5 - PMHx: 06:50 Asthma; sm5 - PSHx: 06:50 knee surgery; sm5 - Immunization history:: Adult Immunizations up to date. - Social history:: Smoking status: unknown. ROS: 07:01 Constitutional: Negative for fever, chills, and weight loss, Eyes: Negative for injury, kdr pain, redness, and discharge, ENT: Negative for injury, pain, and discharge, Neck: Negative for injury, pain, and swelling, Cardiovascular: Negative for chest pain, palpitations, and edema, Abdomen/GI: Negative for abdominal pain, nausea, vomiting, diarrhea, and constipation, Back: Negative for injury and pain, : Negative for injury, bleeding, discharge, and swelling, MS/Extremity: Negative for injury and deformity, Skin: Negative for injury, rash, and discoloration, Neuro: Negative for headache, weakness, numbness, tingling, and seizure activity. Psych: Negative for depression, anxiety, suicide ideation, homicidal ideation, and hallucinations, Allergy/Immunology: Negative for hives, rash, and allergies, Endocrine: Negative for neck swelling, polydipsia, polyuria, polyphagia, and marked weight changes, Hematologic/Lymphatic: Negative for swollen nodes, abnormal bleeding, and unusual bruising. 07:01 Respiratory: Positive for Negative for Exam: 07:01 Constitutional: This is a well developed, well nourished patient who is awake, alert, kdr and in no acute distress. Head/Face: Normocephalic, atraumatic. Eyes: Pupils equal round and reactive to light, extra-ocular motions intact. Lids and lashes normal. Conjunctiva and sclera are non-icteric and not injected. Cornea within normal limits. Periorbital areas with no swelling, redness, or edema. ENT: Nares patent. No nasal discharge, no septal abnormalities noted. Tympanic membranes are normal and external auditory canals are clear. Oropharynx with no redness, swelling, or masses, exudates, or evidence of obstruction, uvula midline. Mucous membranes moist. Neck: Trachea midline, no thyromegaly or masses palpated, and no cervical lymphadenopathy. Supple, full range of motion without nuchal rigidity, or vertebral point tenderness. No Meningismus. Chest/axilla: Normal chest wall appearance and motion. Nontender with no deformity. No lesions are appreciated. Cardiovascular: Regular rate and rhythm with a normal S1 and S2. No gallops, murmurs, or rubs. Normal PMI, no JVD. No pulse deficits. Respiratory: Lungs have equal breath sounds bilaterally, clear to auscultation and percussion. No rales, rhonchi or wheezes noted. No increased work of breathing, no retractions or nasal flaring. Abdomen/GI: Soft, non-tender, with normal bowel sounds. No distension or tympany. No guarding or rebound. No evidence of tenderness throughout. Back: No spinal tenderness. No costovertebral tenderness. Full range of motion. Skin: Warm, dry with normal turgor. Normal color with no rashes, no lesions, and no evidence of cellulitis. MS/ Extremity: Pulses equal, no cyanosis. Neurovascular intact. Full, normal range of motion. Neuro: Awake and alert, GCS 15, oriented to person, place, time, and situation. Cranial nerves II-XII grossly intact. Motor strength 5/5 in all extremities. Sensory grossly intact. Cerebellar exam normal. Normal gait. Psych: Awake, alert, with orientation to person, place and time. Behavior, mood, and affect are within normal limits. 07:01 Respiratory: mild respiratory distress is noted, Respirations: labored breathing, that is mild, Breath sounds: rales, wheezing: is not appreciated, is scattered. 08:33 ECG was reviewed by the Attending Physician. [facility] Vital Signs: 06:48 BP 133 / 91; Pulse 81; Resp 23; Pulse Ox 96% on R/A; Weight 69.4 kg; Height 5 ft. 9 in. 5 (175.26 cm); 06:53 Temp 98.5(O); kd3 07:30 BP 136 / 76; Pulse 76; Resp 18; Pulse Ox 100% ; ww 08:31 BP 131 / 99; Pulse 81; Resp 18; Pulse Ox 99% ; ww 09:30 BP 123 / 76; Pulse 77; Resp 2; Pulse Ox 98% on R/A; ww 06:48 Body Mass Index 22.59 (69.40 kg, 175.26 cm) 5 MDM: 07:01 Data reviewed: vital signs, nurses notes, lab test result(s), radiologic studies. kdr 07:50 Patient medically screened. wilner 08:38 Differential diagnosis: Anxiety Reaction asthma, Bronchitis Pneumothorax pulmonary wilner edema, reactive airway disease. Antibiotic administration: The patient is discharged and will get outpatient antibiotics, Zithromax. The patient's [place] Deep Vein Thrombosis Score was calculated as follows: Total Score: 0-2 Pts- Low Risk. The patient's pulmonary embolism risk score was calculated as follows: No Risks (0 Pts). Immunization status:. Data interpreted: vehicle monitor technician: rate is 81 beats/min, rhythm is regular, Pulse oximetry: on 100L(s) per nasal canula, is 96 %. Test interpretation: by ED physician or midlevel provider: ECG, plain radiologic studies. Counseling: I had a detailed discussion with the patient and/or guardian regarding: the historical points, exam findings, and any diagnostic results supporting the discharge/admit diagnosis, lab results, radiology results, the need for outpatient follow up, for definitive care, a family practitioner. 01/17 06:47 Order name: Basic Metabolic Panel; Complete Time: 08:42 kdr 01/17 06:47 Order name: CBC with Diff; Complete Time: 08:38 kdr 01/17 06:47 Order name: NT PRO-BNP; Complete Time: 08:42 kdr 01/17 06:47 Order name: Troponin HS; Complete Time: 08:42 kdr 01/17 06:47 Order name: XRAY Chest (1 view); Complete Time: 08:38 kdr 01/17 07:37 Order name: Manual Differential; Complete Time: 08:38 EDMS 01/17 06:47 Order name: EKG; Complete Time: 06:47 kdr 01/17 06:47 Order name: Cardiac monitoring; Complete Time: 06:51 kdr 01/17 06:47 Order name: EKG - Nurse/Tech; Complete Time: 07:03 kdr 01/17 06:47 Order name: IV Saline Lock; Complete Time: 06:51 kdr 01/17 06:47 Order name: Labs collected and sent; Complete Time: 07:04 kdr 01/17 06:47 Order name: O2 Per Protocol; Complete Time: 06:52 kdr 01/17 06:47 Order name: O2 Sat Monitoring; Complete Time: 06:52 kdr 01/17 07:08 Order name: Labs - recollect needed: recollect green top; Complete Time: 07:27 bd 01/17 07:44 Order name: Labs - recollect needed: recollect c7 again. lab will come to collect; bd Complete Time: 08:31 EC:33 Rate is 70 beats/min. Rhythm is regular. QRS [place] is Normal. CA interval is normal. QRS wilner interval is normal. QT interval is normal. No Q waves. T waves are Normal. No ST changes noted. Clinical impression: NSR w/ Non-specific ST/T Changes and No evidence of ischemia. Interpreted by me. Reviewed by me. Administered Medications: 07:04 Drug: Albuterol - atroVENT (ipratropium) (3:1) (2.5 mg - 0.5 mg) 3 ml Route: Nebulizer; [facility] 07:05 Drug: SOLU-Medrol (methylPrednisoLONE) 125 mg Route: IVP; Site: right antecubital; 5 09:12 Drug: predniSONE 40 mg Route: PO; ww 09:12 Drug: Zithromax (azithromycin) 500 mg Route: PO; 09:12 Drug: Potassium Effervescent Tablet 25 mEq Route: PO; ww Disposition Summary: 01/17/22 08:41 Discharge Ordered Location: Home wilner Problem: new wilner Symptoms: have improved wilner Condition: Stable wilner Diagnosis - Mild persistent asthma wilner - Dyspnea wilner - Hypokalemia wilner Followup: wilner - With: Private Physician - When: 2 - 3 days - Reason: Recheck today's complaints, Continuance of care, Re-evaluation by your physician Followup: wilner - With: Darrick Thakkar MD - When: 2 - 3 days - Reason: Recheck today's complaints, Re-evaluation by your physician Discharge Instructions: - Discharge Summary Sheet wilner - Asthma, Adult wilner - Asthma Attack wilner - Potassium Content of Foods wilner - Hypokalemia wilenr Forms: - Medication Reconciliation Form wilner - Thank You Letter wilner - Antibiotic Education wilner - Prescription Opioid Use wilner - Work release form ww - Family Work Release ww Prescriptions: - albuterol sulfate 90 mcg/actuation Inhalation HFA aerosol inhaler - inhale 2 puff by INHALATION route every 4-6 hours; 1 Pump; Refills: 0, Product wilner Selection Permitted - Zithromax Z-[place] 250 mg Oral Tablet - take 1 tablet by ORAL route as directed for 5 days Day 1 - take two (2) tablets [facility] one time. Day 2, 3, 4 , 5 take one (1) tablet once daily.; 6 tablet; Refills: 0, Product Selection Permitted - Prednisone 20 mg Oral Tablet - take 2 tablets by ORAL route once daily for 5 days; 10 tablet; Refills: 0, wilner Product Selection Permitted Signatures: Dispatcher [employer] Rosi Moran Corey, MD MD cha Rittger, Kevin, MD MD kdr Doucette, Kyli, RN RN kd3 Winnie Gardner RN RN sm5 Sudha Rubin RN RN ww
--- NOTE | 2022-01-17 08:42 | ER ---
Nurse's Notes [facility] Name: Paulette Lozoya Age: 26 yrs Sex: Male : 1995 Arrival Date: 01/17/2022 Time: 06:42 Bed 20 Private MD: Diagnosis: Mild persistent asthma;Dyspnea;Hypokalemia Presentation: 01/17 06:48 Chief complaint: Patient states: pt with shortness of breath, difficulty speaking and sm5 breathing. reports running out of albuterol at home. Coronavirus screen: Vaccine status: Patient reports receiving the 2nd dose of the covid vaccine. Ebola Screen: No symptoms or risks identified at this time. Initial Sepsis Screen: Does the patient meet any 2 criteria? No. Patient's initial sepsis screen is negative. Does the patient have a suspected source of infection? No. Patient's initial sepsis screen is negative. Risk Assessment: Do you want to hurt yourself or someone else? Patient reports no desire to harm self or others. Onset of symptoms was January 17, 2022. 06:48 Method Of Arrival: Ambulatory 5 06:48 Acuity: BLAKE 3 5 Triage Assessment: 06:50 General: Appears uncomfortable, Behavior is cooperative, anxious. Pain: Denies pain. sm5 Respiratory: Reports shortness of breath Onset: The symptoms/episode began/occurred suddenly, the patient has moderate shortness of breath. Historical: - Allergies: 07:04 No Known Allergies; sm5 - Home Meds: 06:50 Albuterol Inhl [Active]; Symbicort inhalation 2 times per day [Active]; sm5 - PMHx: 06:50 Asthma; sm5 - PSHx: 06:50 knee surgery; sm5 - Immunization history:: Adult Immunizations up to date. - Social history:: Smoking status: unknown. Screenin:51 Abuse screen: Denies threats or abuse. Denies injuries from another. Nutritional sm5 screening: No deficits noted. Tuberculosis screening: No symptoms or risk factors identified. Fall Risk None identified. 06:51 Fall Risk IV access (20 points). sm5 Assessment: 06:51 Respiratory: Airway. sm5 07:20 General: Appears comfortable, Behavior is cooperative. Neuro: Level of Consciousness is ww awake, alert, obeys commands, Oriented to person, place, time, situation, Moves all extremities. Speech is normal. Cardiovascular: Capillary refill < 3 seconds Patient's skin is warm and dry. Rhythm is regular. Respiratory: Airway is patent Respiratory effort is labored, Respiratory pattern is tachypnea Breath sounds are coarse. GI: No signs and/or symptoms were reported involving the gastrointestinal system. : No signs and/or symptoms were reported regarding the genitourinary system. Derm: No signs and/or symptoms reported regarding the dermatologic system. Skin is intact, is healthy with good turgor, Skin is pink, warm \T\ dry. 08:15 Reassessment: Patient appears in no apparent distress at this time. Patient and/or ww family updated on plan of care and expected duration. Pain level reassessed. Patient is alert, oriented x 3, equal unlabored respirations, skin warm/dry/pink. Respiratory: Respiratory effort is even, unlabored, Respiratory pattern is regular, symmetrical. 09:25 Reassessment: Patient appears in no apparent distress at this time. No changes from ww previously documented assessment. Patient and/or family updated on plan of care and expected duration. Pain level reassessed. Patient is alert, oriented x 3, equal unlabored respirations, skin warm/dry/pink. Patient states feeling better. Patient states symptoms have improved. Vital Signs: 06:48 BP 133 / 91; Pulse 81; Resp 23; Pulse Ox 96% on R/A; Weight 69.4 kg; Height 5 ft. 9 in. 5 (175.26 cm); 06:53 Temp 98.5(O); kd3 07:30 BP 136 / 76; Pulse 76; Resp 18; Pulse Ox 100% ; ww 08:31 BP 131 / 99; Pulse 81; Resp 18; Pulse Ox 99% ; ww 09:30 BP 123 / 76; Pulse 77; Resp 2; Pulse Ox 98% on R/A; ww 06:48 Body Mass Index 22.59 (69.40 kg, 175.26 cm) 5 ED Course: 06:42 Patient arrived in ED. bp1 06:46 River Reno MD is Attending Physician. kdr 06:50 Triage completed. sm5 06:50 Arm band placed on left wrist. sm5 06:51 Winnie Gardner RN is Primary Nurse. sm5 06:51 Patient has correct armband on for positive identification. sm5 06:51 Inserted saline lock: 20 gauge in right antecubital area, using aseptic technique. 5 07:09 XRAY Chest (1 view) In Process Unspecified. EDOH 07:50 Attending Physician role handed off by River Reno MD cha 07:50 Carrington Feng MD is Attending Physician. [facility] 08:41 Darrick Thakkar MD is Referral Physician. [facility] 10:02 No provider procedures requiring assistance completed. IV discontinued, intact, ww bleeding controlled, No redness/swelling at site. Pressure dressing applied. Administered Medications: 07:04 Drug: Albuterol - atroVENT (ipratropium) (3:1) (2.5 mg - 0.5 mg) 3 ml Route: Nebulizer; [facility] 07:05 Drug: SOLU-Medrol (methylPrednisoLONE) 125 mg Route: IVP; Site: right antecubital; 5 09:12 Drug: predniSONE 40 mg Route: PO; ww 09:12 Drug: Zithromax (azithromycin) 500 mg Route: PO; ww 09:12 Drug: Potassium Effervescent Tablet 25 mEq Route: PO; ww Outcome: 08:41 Discharge ordered by . [facility] 10:02 Discharged to home ambulatory, with family. 10:02 Condition: stable 10:02 Discharge instructions given to patient, family, Instructed on discharge instructions, follow up and referral plans. medication usage, safety practices, Demonstrated understanding of instructions, follow-up care, medications, Prescriptions given X 3. 10:03 Patient left the ED. ww Signatures: Dispatcher [employer] [facility] Carrington Feng MD MD cha Rittger, Kevin, MD MD kdr [place], Brittany bp1 Doucette, Kyli RN RN kd3 Winnie Gardner RN RN Sudha Smart, RN RN ww
[2022-01-17] MEDS ORDERED: AZITHROMYCIN 250 MG TAB ONE (09:11)
[2022-01-17] MEDS ORDERED: predniSONE 20 MG TAB ONE (09:11)
[2022-01-17] MEDS ORDERED: POTASSIUM 25 MEQ EFFERV TAB ONE (09:12)
[2022-01-17 10:11] VITALS: TEMP 98.5
[2022-01-17 10:16] VITALS: BP 123/76; O2SAT 98
== END 2022-01-17 10:03 | disposition home or self-care (01) ==
LOC: ER 06:41
DX: J45.30 Mild persistent asthma, uncomplicated (principal); E87.6 Hypokalemia
CPT/HCPCS: 85025; 80048; 36415; 84484; 83880; 71045; J7512; J2930; 93005

== ENCOUNTER 2022-02-02 09:47 | Emergency (ER) | payer OTHER ==
--- NOTE | 2022-02-02 10:05 | ER ---
Nurse's Notes [facility] Name: Paulette Lozoya Age: 26 yrs Sex: Male : 1995 Arrival Date: 02/02/2022 Time: 09:49 Bed Waiting Private MD: Diagnosis: Encounter for issue of repeat prescription Presentation: 02/02 10:00 Chief complaint: Patient states: needs an inhaler for work, he has asthma. Coronavirus iw screen: At this time, the client does not indicate any symptoms associated with coronavirus-19. Ebola Screen: Patient negative for fever greater than or equal to 101.5 degrees Fahrenheit, and additional compatible Ebola Virus Disease symptoms Patient denies exposure to infectious person. Patient denies travel to an Ebola-affected area in the 21 days before illness onset. No symptoms or risks identified at this time. Initial Sepsis Screen: Does the patient meet any 2 criteria? No. Patient's initial sepsis screen is negative. Does the patient have a suspected source of infection? No. Patient's initial sepsis screen is negative. Risk Assessment: Do you want to hurt yourself or someone else? Patient reports no desire to harm self or others. Onset of symptoms was February 02, 2022. 10:00 Method Of Arrival: Ambulatory iw 10:00 Acuity: BLAKE 5 iw Historical: - Allergies: 10:01 No Known Allergies; iw - PMHx: 10:01 Asthma; iw - PSHx: 10:01 knee surgery; iw - Immunization history:: Adult Immunizations unknown. - Social history:: Smoking status: unknown. Screenin:07 Abuse screen: Denies threats or abuse. Denies injuries from another. Nutritional iw screening: No deficits noted. Tuberculosis screening: No symptoms or risk factors identified. Fall Risk None identified. Assessment: 10:06 General: Appears in no apparent distress. Behavior is calm, cooperative. Pain: Denies iw pain. Neuro: Level of Consciousness is awake, alert, obeys commands, Oriented to person, place, time, situation. Cardiovascular: Patient's skin is warm and dry. Respiratory: Respiratory effort is even, unlabored, Respiratory pattern is regular, symmetrical. Vital Signs: 10:00 BP 125 / 82; Pulse 72; Resp 16; Temp 98.1; Pulse Ox 100% on R/A; iw ED Course: 09:49 Patient arrived in ED. mr 09:52 Kervin Richardson, ANGEL is PHCP. pm1 09:52 Carrington Feng MD is Attending Physician. pm1 10:01 Triage completed. iw 10:01 Arm band placed on. iw 10:06 Jessica Nation, RN is Primary Nurse. iw 10:07 No provider procedures requiring assistance completed. Patient did not have IV access iw during this emergency room visit. Administered Medications: No medications were administered Medication: 19:19 VIS not applicable for this client. iw Outcome: 10:04 Discharge ordered by . pm1 10:07 Discharged to home ambulatory. iw 10:07 Condition: good 10:07 Discharge instructions given to patient, Instructed on discharge instructions, follow up and referral plans. medication usage, Demonstrated understanding of instructions, follow-up care, medications, Prescriptions given X 1. 10:08 Patient left the ED. iw Signatures: Sydnee Kessler mr Jessica Nation, RN RN iw Kervin Richardson, ANGEL MELTER SUPERVISOR [employer]NACE pm1
--- NOTE | 2022-02-02 10:05 | EDPHYS ---
Physician Documentation [facility] Name: Paulette Lozoya Age: 26 yrs Sex: Male : 1995 Arrival Date: 02/02/2022 Time: 09:49 Bed Waiting Private MD: ED Physician Carrington Feng HPI: 02/02 10:04 This 26 yrs old Black Male presents to ER via Ambulatory with complaints of Needs RX. pm1 10:04 Onset: The symptoms/episode began/occurred today. Associated signs and symptoms: The pm1 patient has no apparent associated signs or symptoms. The patient has not recently seen a physician. 26-year-old male presents to the ER with complaints of prescription refill. Patient has an inhaler at home but he needs an inhaler to be onsite at his new job. Patient without any symptoms of shortness of breath or asthma exacerbation. Patient reports last asthma exacerbation 2 weeks ago. . Historical: - Allergies: 10:01 No Known Allergies; iw - PMHx: 10:01 Asthma; iw - PSHx: 10:01 knee surgery; iw - Immunization history:: Adult Immunizations unknown. - Social history:: Smoking status: unknown. ROS: 10:04 Constitutional: Negative for fever, chills, and weight loss, Cardiovascular: Negative pm1 for chest pain, palpitations, and edema, Respiratory: Negative for shortness of breath, cough, wheezing, and pleuritic chest pain. 10:04 All other systems are negative. Exam: 10:04 Constitutional: This is a well developed, well nourished patient who is awake, alert, pm1 and in no acute distress. Head/Face: Normocephalic, atraumatic. 10:04 Skin: Warm, dry with normal turgor. Normal color with no rashes, no lesions, and no evidence of cellulitis. MS/ Extremity: Pulses equal, no cyanosis. Neurovascular intact. Full, normal range of motion. 10:04 Cardiovascular: Rate: normal, Rhythm: regular, Pulses: no pulse deficits are appreciated, Heart sounds: normal, normal S1and S2. 10:04 Respiratory: Exam negative for acute changes, respiratory distress, shortness of breath, Breath sounds: are clear throughout. 10:04 Neuro: Orientation: is normal, Mentation: is normal, Motor: moves all fours, Gait: is steady, at a normal pace, without difficulty. Vital Signs: 10:00 BP 125 / 82; Pulse 72; Resp 16; Temp 98.1; Pulse Ox 100% on R/A; iw MDM: 10:03 Data reviewed: vital signs. Data interpreted: Pulse oximetry: on room air is 100 %. pm1 Interpretation: normal. Counseling: I had a detailed discussion with the patient and/or guardian regarding: the historical points, exam findings, and any diagnostic results supporting the discharge/admit diagnosis, the need for outpatient follow up, to return to the emergency department if symptoms worsen or persist or if there are any questions or concerns that arise at home. 10:04 Patient medically screened. pm1 Administered Medications: No medications were administered Disposition Summary: 02/02/22 10:04 Discharge Ordered Location: Home pm1 Problem: new pm1 Symptoms: have improved pm1 Condition: Stable pm1 Diagnosis - Encounter for issue of repeat prescription pm1 Followup: pm1 - With: Emergency Department - When: As needed - Reason: Worsening of condition Followup: pm1 - With: Private Physician - When: 2 - 3 days - Reason: Recheck today's complaints, Continuance of care, Re-evaluation by your physician Discharge Instructions: - Discharge Summary Sheet pm1 - Medicine Refill at the Emergency Department pm1 Forms: - Medication Reconciliation Form pm1 - Thank You Letter pm1 - Antibiotic Education pm1 - Prescription Opioid Use pm1 - Work release form eb Prescriptions: - Ventolin HFA 90 mcg/actuation Inhalation HFA aerosol inhaler - inhale 1 puff by INHALATION route every 4-6 hours As needed; 1 Inhaler; pm1 Refills: 0, Product Selection Permitted Addendum: 02/04/2022 14:08 Co-signature as Attending Physician, Carrington Feng MD I agree with the assessment and c anderson plan of care. Signatures: Carrington Feng MD MD cha Williams, Irene, RN RN Kervin Avila NP LICENSED SURVEYOR pm1
[2022-02-02 10:12] VITALS: BP 125/82; TEMP 98.1; O2SAT 100
== END 2022-02-02 10:08 | disposition home or self-care (01) ==
LOC: ER 09:47
DX: Z76.0 Encounter for issue of repeat prescription (principal)
CPT/HCPCS: 99282

== ENCOUNTER 2022-03-15 11:51 | Emergency (ER) | payer OTHER, SELFPAY ==
--- OUTSIDE RECORDS SUMMARY | 2022-03-15 11:54 | XMS REPORT | Continuity of Care Document ---
:1995 Author Organization [facility] t Address [address] [place] [address] Care Team Providers Name Role Phone DR LISA GARCIA Attending Clinician Unavailable DR LISA GARCIA Admitting Clinician Unavailable Problems This patient has no known problems. Allergies, Adverse Reactions, Alerts Allergy Allergy Status Severity Reaction(s) Onset Inactive Treating Comm ents Source Name Type Date Date Clinician No Known DA Active [facility] Medications This patient has no known medications. Vital Signs Vital Name Observation Time Observation Value Comments Source Height 2020-04-16 06:00:00 175.26 CM Weight 2020-04-16 06:00:00 70.3 KG Procedures This patient has no known procedures. Encounters Start End Encounter Admission Attending Care Care Encounter Source Date/Time Date/Time Type Type Clinicians Facility Department ID 2020-04-16 2020-04-16 Outpatient E LISA GARCIA [facility] [id number] [facility] 05:54:00 06:32:00 [facility] Results This patient has no known results.
--- NOTE | 2022-03-15 12:12 | EDPHYS ---
Physician Documentation [facility] Name: Paulette Lozoya Age: 26 yrs Sex: Male : 1995 Arrival Date: 03/15/2022 Time: 11:52 Bed DIS1 Private MD: ED Physician Dom Colón HPI: 03/15 12:11 This 26 yrs old Black Male presents to ER via Ambulatory with complaints of needs ms3 inhaler. 12:11 The patient presents to the emergency department requesting refill(s) for: Albuterol, ms3 Symbicort. The patient chronically suffers from asthma. 26 yo male with PMH of asthma presents requesting refill on his Albuterol and Symbicort prescriptions. Patient denies pain, sob, n, v, d. Patient denies alleviating or inciting factors for his asthma. . Historical: - Allergies: 19:24 No Known Allergies; iw - Home Meds: 19:24 Albuterol Inhl [Active]; Symbicort inhalation 2 times per day [Active]; iw - Immunization history:: Adult Immunizations unknown. ROS: 12:11 Constitutional: Negative for fever, and chills. Neck: Negative for injury, pain, and ms3 swelling, Cardiovascular: Negative for chest pain, and palpitations. Respiratory: Negative for shortness of breath, cough, wheezing, and pleuritic chest pain, Abdomen/GI: Negative for abdominal pain, nausea, vomiting, diarrhea, and constipation, Skin: Negative for injury, rash, and discoloration. 12:11 All other systems are negative. Exam: 12:11 Constitutional: This is a well developed, well nourished patient who is awake, alert, ms3 and in no acute distress. Head/Face: Normocephalic, atraumatic. ENT: Nares patent. No nasal discharge, no septal abnormalities noted. Tympanic membranes are normal and external auditory canals are clear. Oropharynx with no redness, swelling, or masses, exudates, or evidence of obstruction, uvula midline. Mucous membranes moist. Neck: Trachea midline, no cervical lymphadenopathy. Supple, full range of motion without nuchal rigidity, or vertebral point tenderness. No Meningismus. Chest/axilla: Normal chest wall appearance and motion. Nontender with no deformity. Cardiovascular: Regular rate and rhythm with a normal S1 and S2. No gallops, murmurs, or rubs. Normal PMI, no JVD. No pulse deficits. Respiratory: Lungs have equal breath sounds bilaterally, clear to auscultation and percussion. No rales, rhonchi or wheezes noted. No increased work of breathing, no retractions or nasal flaring. Abdomen/GI: Soft, non-tender, with normal bowel sounds. No distension or tympany. No guarding or rebound. No evidence of tenderness throughout. Back: No spinal tenderness. No costovertebral tenderness. Full range of motion. Skin: Warm, dry with normal turgor. Normal color with no rashes, no lesions, and no evidence of cellulitis. MS/ Extremity: Pulses equal, no cyanosis. Neurovascular intact. Full, normal range of motion. Psych: Awake, alert, with orientation to person, place and time. Behavior, mood, and affect are within normal limits. MDM: 12:09 Patient medically screened. ms3 12:11 Data reviewed: nurses notes, old medical records, Patient given only Albuterol on last ms3 visit for medication refill and as a result, I will discharge patient. Counseling: I had a detailed discussion with the patient and/or guardian regarding: the historical points, exam findings, and any diagnostic results supporting the discharge/admit diagnosis, the need for outpatient follow up, to return to the emergency department if symptoms worsen or persist or if there are any questions or concerns that arise at home. Special discussion: I discussed with the patient/guardian in detail that at this point there is no indication for admission to the hospital. It is understood, however, that if the symptoms persist or worsen the patient needs to return immediately for re-evaluation. Administered Medications: No medications were administered Disposition: :28 Chart complete. ms3 Disposition Summary: 03/15/22 12:11 Discharge Ordered Location: Home ms3 Condition: Stable ms3 Diagnosis - Mild intermittent asthma ms3 Followup: ms3 - With: Barrera Siegel DO - When: 2 - 3 days - Reason: Recheck today's complaints Discharge Instructions: - Discharge Summary Sheet cp - Asthma, Adult ms3 Forms: - Medication Reconciliation Form ms3 - Work release form iw - Thank You Letter ms3 - Antibiotic Education ms3 - Prescription Opioid Use ms3 Prescriptions: - Symbicort 80-4.5 mcg/actuation Inhalation HFA aerosol inhaler - inhale 2 puff by INHALATION route 2 times per day; 1 Pump; Refills: 0, Product cp Selection Permitted - albuterol sulfate 90 mcg/actuation Inhalation HFA aerosol inhaler - inhale 2 puff by INHALATION route every 4-6 hours; 1 Pump; Refills: 0, Product cp Selection Permitted Signatures: Jessica Nation RN RN iw Dom Colón DO DO ms3
--- NOTE | 2022-03-15 12:32 | ER ---
Nurse's Notes [facility] Name: Paulette Lozoya Age: 26 yrs Sex: Male : 1995 Arrival Date: 03/15/2022 Time: 11:52 Bed DIS1 Private MD: Diagnosis: Mild intermittent asthma Presentation: 03/15 12:00 Chief complaint: Patient states: needs refill on his inhaler. Coronavirus screen: At iw this time, the client does not indicate any symptoms associated with coronavirus-19. Ebola Screen: Patient negative for fever greater than or equal to 101.5 degrees Fahrenheit, and additional compatible Ebola Virus Disease symptoms Patient denies exposure to infectious person. Patient denies travel to an Ebola-affected area in the 21 days before illness onset. No symptoms or risks identified at this time. Initial Sepsis Screen: Does the patient meet any 2 criteria? No. Patient's initial sepsis screen is negative. Does the patient have a suspected source of infection? No. Patient's initial sepsis screen is negative. Risk Assessment: Do you want to hurt yourself or someone else? Patient reports no desire to harm self or others. Onset of symptoms was March 15, 2022. 12:00 Method Of Arrival: Ambulatory iw 12:00 Acuity: BLAKE 4 iw Triage Assessment: 12:15 General: Appears in no apparent distress. Behavior is calm, cooperative. Pain: Denies iw pain. Historical: - Allergies: 19:24 No Known Allergies; iw - Home Meds: 19:24 Albuterol Inhl [Active]; Symbicort inhalation 2 times per day [Active]; iw - Immunization history:: Adult Immunizations unknown. Screenin:20 Abuse screen: Denies threats or abuse. Denies injuries from another. Nutritional iw screening: No deficits noted. Tuberculosis screening: No symptoms or risk factors identified. Fall Risk None identified. ED Course: 11:52 Patient arrived in ED. am2 11:59 Dom Colón DO is Attending Physician. ms3 12:00 Arm band placed on right wrist. iw 12:11 Barrera Siegel DO is Referral Physician. ms3 12:26 Jessica Nation, RN is Primary Nurse. iw 12:29 No provider procedures requiring assistance completed. Patient did not have IV access iw during this emergency room visit. 19:23 Triage completed. iw Administered Medications: No medications were administered Outcome: 12:11 Discharge ordered by . ms3 12:30 Discharged to home ambulatory. iw 12:30 Condition: good 12:30 Discharge instructions given to patient, Instructed on discharge instructions, follow up and referral plans. Demonstrated understanding of instructions. 12:31 Patient left the ED. iw Signatures: Jessica Nation RN RN iw Vivian Armando Marcus, DO DO ms3
== END 2022-03-15 12:31 | disposition home or self-care (01) ==
LOC: ER 11:51
DX: J45.20 Mild intermittent asthma, uncomplicated (principal)
CPT/HCPCS: 99281

== ENCOUNTER 2022-05-17 00:48 | Emergency (ER) | payer OTHER ==
--- OUTSIDE RECORDS SUMMARY | 2022-05-17 00:52 | XMS REPORT | Continuity of Care Document ---
:1995 Author Organization [facility] t Address [address] [place] [address] Care Team Providers Name Role Phone DR LISA GARCIA Attending Clinician Unavailable DR LISA GARCIA Admitting Clinician Unavailable Problems This patient has no known problems. Allergies, Adverse Reactions, Alerts Allergy Allergy Status Severity Reaction(s) Onset Inactive Treating Comm ents Source Name Type Date Date Clinician No Known DA Active [facility] Medications This patient has no known medications. Vital Signs Vital Name Observation Time Observation Value Comments Source Height 2020-04-16 06:00:00 175.26 CM Weight 2020-04-16 06:00:00 70.3 KG Procedures This patient has no known procedures. Encounters Start End Encounter Admission Attending Care Care Encounter Source Date/Time Date/Time Type Type Clinicians Facility Department ID 2020-04-16 2020-04-16 Outpatient [facility] [id number] [facility]00 [facility] Results This patient has no known results.
[2022-05-17] MEDS ORDERED: MORPHINE 4 MG/ML SYR ONE ×2 (01:07→02:35)
[2022-05-17] MEDS ORDERED: ONDANSETRON 4 MG/2 ML VIAL ONE (01:07)
--- NOTE | 2022-05-17 02:54 | ER ---
Nurse's Notes [facility] Name: Paulette Lozoya Age: 26 yrs Sex: Male : 1995 Arrival Date: 05/17/2022 Time: 00:51 Bed 6 Private MD: Diagnosis: Fracture of mandible;Fracture of pterygoid plate Presentation: 05/17 01:00 Chief complaint: Patient states: left jaw and mouth pain fell off horse and hit jaw on metal railing of stall. Coronavirus screen: Vaccine status: Patient reports receiving the 2nd dose of the covid vaccine. phizer. Ebola Screen: Patient negative for fever greater than or equal to 101.5 degrees Fahrenheit, and additional compatible Ebola Virus Disease symptoms. Initial Sepsis Screen: Does the patient meet any 2 criteria? No. Patient's initial sepsis screen is negative. Does the patient have a suspected source of infection? No. Patient's initial sepsis screen is negative. Risk Assessment: Do you want to hurt yourself or someone else? Patient reports no desire to harm self or others. Onset of symptoms was May 16, 2022 at 23:00. 01:00 Method Of Arrival: Ambulatory 01:00 Acuity: BLAKE 3 kl Triage Assessment: 01:03 General: Appears uncomfortable, well groomed, well developed, Behavior is calm, kl cooperative. Pain: Complains of pain in left jaw and right jaw Pain currently is 8 out of 10 on a pain scale. EENT: minimal bleeding noted to lower gum line swelling to left jaw. Neuro: No deficits noted. Level of Consciousness is awake, alert, obeys commands, Oriented to person, place, time, situation, Accounting Support Specialist are equal bilaterally Moves all extremities. pt denies dizziness of LOC . Historical: - Allergies: 01:06 No Known Allergies; kl - Home Meds: 01:05 Albuterol Inhl [Active]; Symbicort inhalation 2 times per day [Active]; Adderall XR kl Oral [Active]; - PMHx: 01:05 Asthma; kl 01:06 ADHD; kl - PSHx: 01:05 knee surgery; kl - Family history:: not pertinent. - Hospitalizations: : No recent hospitalization is reported. Screenin:00 Abuse screen: Denies threats or abuse. Denies injuries from another. Nutritional ll3 screening: No deficits noted. Tuberculosis screening: No symptoms or risk factors identified. Fall Risk None identified. Assessment: 01:00 General: Appears in no apparent distress. uncomfortable, Behavior is calm, cooperative. ll3 Pain: Complains of pain in left jaw and right jaw Pain does not radiate. Pain currently is 8 out of 10 on a pain scale. Neuro: Level of Consciousness is awake, alert, obeys commands, Oriented to person, place, time, situation. Respiratory: Respiratory effort is even, unlabored, Respiratory pattern is regular, symmetrical. Musculoskeletal: Swelling present in left jaw and right jaw Reports pain in left jaw and right jaw. 02:40 Reassessment: Pt c/o jaw pain 10/10, ERP notified, medicated as ordered. ll3 04:13 Reassessment: No changes from previously documented assessment. Patient and/or family ll3 updated on plan of care and expected duration. Pain level reassessed. States pain is 10/10. Vital Signs: 01:00 BP 143 / 108; Pulse 77; Resp 18; Temp 98.1; Pulse Ox 99% on R/A; Weight 68.95 kg; kl Height 5 ft. 9 in. (175.26 cm); Pain 8/10; 02:00 BP 147 / 85; Pulse 65; Resp 16; Pulse Ox 100% on R/A; vc1 02:30 BP 140 / 91; Pulse 63; Resp 15; Pulse Ox 100% on R/A; Pain 10/10; vc1 03:15 BP 161 / 102; Pulse 69; Resp 15; Pulse Ox 100% ; vc1 04:00 BP 146 / 87; Pulse 74; Resp 16; Pulse Ox 100% ; vc1 01:00 Body Mass Index 22.45 (68.95 kg, 175.26 cm) Betty Coma Score: 01:01 Eye Response: spontaneous(4). Verbal Response: oriented(5). Motor Response: obeys rn commands(6). Total: 15. 02:50 Eye Response: spontaneous(4). Verbal Response: oriented(5). Motor Response: obeys rn commands(6). Total: 15. ED Course: 00:51 Patient arrived in ED. ja2 00:52 Oscar Otero MD is Attending Physician. rn 01:00 Patient has correct armband on for positive identification. Bed in low position. Call ll3 light in reach. Side rails up X 1. Adult w/ patient. 01:00 Patient placed in an exam room, on a stretcher, on pulse oximetry. ll3 01:03 Triage completed. kl 01:15 Inserted saline lock: 22 gauge in left antecubital area, using aseptic technique. kl 01:24 No provider procedures requiring assistance completed. kl 01:42 CT Facial Bones W/O Con In Process Unspecified. EDMS 05:15 Patient transferred, IV remains in place. ll3 Administered Medications: 01:23 Drug: Zofran (Ondansetron) 4 mg Route: IVP; Site: left antecubital; kl 02:39 Follow up: Response: No adverse reaction ll3 01:24 Drug: morphine 4 mg Route: IVP; Infused Over: 4 mins; Site: left antecubital; kl 02:15 Follow up: Response: No adverse reaction; Pain is decreased ll3 02:39 Drug: morphine 4 mg Route: IVP; Infused Over: 4 mins; Site: left antecubital; ll3 04:12 Follow up: Response: No adverse reaction ll3 04:07 Drug: Clindamycin 600 mg Route: IVPB; Infused Over: 30 mins; Site: left antecubital; ll3 05:17 Follow up: Response: No adverse reaction; IV Status: Completed infusion; IV Intake: [id number] 04:20 Drug: Dilaudid (HYDROmorphone) 1 mg Route: IVP; Site: left antecubital; ll3 Medication: 05:15 VIS not applicable for this client. ll3 Intake: 05:17 IV: 50ml; Total: 50ml. ll3 Outcome: 02:52 ER care complete, transfer ordered by . rn 05:15 Transferred by ground EMS to [facility], Transfer form completed. X-rays sent ll3 w/ patient. 05:15 Condition: stable 05:15 Instructed on the need for transfer, Demonstrated understanding of instructions. 05:18 Patient left the ED. ll3 Signatures: Dispatcher [employer] EDRoxy Kate RN RN kl Nieto, Roman, MD MD rn Alexander, Jessica ja2 Loubet, Lynsea, RN RN ll3 Katie Zhang RN RN vc1 Corrections: (The following items were deleted from the chart) 04:13 04:00 Reassessment: No changes from previously documented assessment. Patient and/or ll3 family updated on plan of care and expected duration. Pain level reassessed. Patient states symptoms have not improved. vc1
--- NOTE | 2022-05-17 02:54 | EDPHYS ---
Physician Documentation [facility] Name: Paulette Lozoya Age: 26 yrs Sex: Male : 1995 Arrival Date: 05/17/2022 Time: 00:51 Bed 6 Private MD: ED Physician Oscar Otero HPI: 05/17 01:01 This 26 yrs old Black Male presents to ER via Unassigned with complaints of Jaw Pain. rn 01:01 The patient or guardian reports pain, swelling, tenderness. The complaints affect the rn right jaw and left jaw. Onset: The symptoms/episode began/occurred today. Associated signs and symptoms: Loss of consciousness: This patient did not experience any loss of consciousness. Pertinent negatives: the patient has not experienced a loss of conciousness, biting tongue, dazed, neck pain, seizure. Severity of symptoms: At their worst the symptoms were moderate, in the emergency department the symptoms are unchanged. The patient has not experienced similar symptoms in the past. Reports fall from horse, left face hit rail, + pain to jaw on both sides. No LOC. No other injuries. . Historical: - Allergies: 01:06 No Known Allergies; kl - Home Meds: 01:05 Albuterol Inhl [Active]; Symbicort inhalation 2 times per day [Active]; Adderall XR kl Oral [Active]; - PMHx: 01:05 Asthma; kl 01:06 ADHD; kl - PSHx: 01:05 knee surgery; kl - Family history:: not pertinent. - Hospitalizations: : No recent hospitalization is reported. ROS: 01:01 Constitutional: Negative for fever, chills, and weight loss, Eyes: Negative for injury, rn pain, redness, and discharge, ENT: + jaw pain Neck: Negative for injury, pain, and swelling, Cardiovascular: Negative for chest pain, palpitations, and edema, Respiratory: Negative for shortness of breath, cough, wheezing, and pleuritic chest pain, Abdomen/GI: Negative for abdominal pain, nausea, vomiting, diarrhea, and constipation, Back: Negative for injury and pain, MS/Extremity: Negative for injury and deformity, Skin: Negative for injury, rash, and discoloration, Neuro: Negative for weakness, numbness, tingling, and seizure. Exam: 01:01 Constitutional: This is a well developed, well nourished patient who is awake, alert, rn and in no acute distress. Head/Face: Normocephalic, + mild swelling bilateral angle of jaw Eyes: Pupils equal round and reactive to light, extra-ocular motions intact. Lids and lashes normal. Conjunctiva and sclera are non-icteric and not injected. Cornea within normal limits. Periorbital areas with no swelling, redness, or edema. ENT: + blood in mouth, no obvious gingival/alveolar ridge fracture noted. + moderate trismus. Neck: Trachea midline, Supple, full range of motion without nuchal rigidity, or vertebral point tenderness. No Meningismus. Cardiovascular: Regular rate and rhythm. No pulse deficits. Respiratory: No increased work of breathing, no retractions or nasal flaring. Abdomen/GI: Soft, non-tender Skin: Warm, dry with normal turgor. Normal color with no rashes, no lesions, and no evidence of cellulitis. MS/ Extremity: Pulses equal, no cyanosis. Neurovascular intact. Full, normal range of motion. Equal circumference. Neuro: Awake and alert, GCS 15, oriented to person, place, time, and situation. Cranial nerves II-XII grossly intact. Motor strength 5/5 in all extremities. Sensory grossly intact. Cerebellar exam normal. Normal gait. Vital Signs: 01:00 BP 143 / 108; Pulse 77; Resp 18; Temp 98.1; Pulse Ox 99% on R/A; Weight 68.95 kg; kl Height 5 ft. 9 in. (175.26 cm); Pain 8/10; 02:00 BP 147 / 85; Pulse 65; Resp 16; Pulse Ox 100% on R/A; vc1 02:30 BP 140 / 91; Pulse 63; Resp 15; Pulse Ox 100% on R/A; Pain 10/10; vc1 03:15 BP 161 / 102; Pulse 69; Resp 15; Pulse Ox 100% ; vc1 04:00 BP 146 / 87; Pulse 74; Resp 16; Pulse Ox 100% ; vc1 01:00 Body Mass Index 22.45 (68.95 kg, 175.26 cm) Betty Coma Score: 01:01 Eye Response: spontaneous(4). Verbal Response: oriented(5). Motor Response: obeys rn commands(6). Total: 15. 02:50 Eye Response: spontaneous(4). Verbal Response: oriented(5). Motor Response: obeys rn commands(6). Total: 15. MDM: 00:52 Patient medically screened. rn 02:50 Differential diagnosis: Contusion of Hematoma on Concussion mandibular fractures, rn maxillary fracture. Data reviewed: vital signs, nurses notes, radiologic studies, CT scan, and as a result, I will admit patient. Counseling: I had a detailed discussion with the patient and/or guardian regarding: the historical points, exam findings, and any diagnostic results supporting the discharge/admit diagnosis, radiology results, the need to transfer to another facility, for higher level of care, [facility] does not immediately have the required specialist. Response to treatment: the patient's symptoms have mildly improved after treatment, and as a result, I will admit patient. 05/17 02:40 Order name: SARS RAPID; Complete Time: 03:36 ds4 05/17 01:01 Order name: CT Facial Bones W/O Con rn 05/17 01:01 Order name: IV Start; Complete Time: 01:29 rn Administered Medications: 01:23 Drug: Zofran (Ondansetron) 4 mg Route: IVP; Site: left antecubital; kl 02:39 Follow up: Response: No adverse reaction ll3 01:24 Drug: morphine 4 mg Route: IVP; Infused Over: 4 mins; Site: left antecubital; kl 02:15 Follow up: Response: No adverse reaction; Pain is decreased ll3 02:39 Drug: morphine 4 mg Route: IVP; Infused Over: 4 mins; Site: left antecubital; ll3 04:12 Follow up: Response: No adverse reaction ll3 04:07 Drug: Clindamycin 600 mg Route: IVPB; Infused Over: 30 mins; Site: left antecubital; ll3 05:17 Follow up: Response: No adverse reaction; IV Status: Completed infusion; IV Intake: [id number] 04:20 Drug: Dilaudid (HYDROmorphone) 1 mg Route: IVP; Site: left antecubital; ll3 Disposition Summary: 05/17/22 02:52 Transfer Ordered Transfer Location: [facility] rn Reason: Higher level of care rn Condition: Stable rn Problem: new rn Symptoms: have improved rn Accepting Physician: (05/17/22 05:18) ll3 Diagnosis - Fracture of mandible rn - Fracture of pterygoid plate rn Forms: - Medication Reconciliation Form rn - SBAR form rn Signatures: Dispatcher [employer] Roxy Barber RN RN kl Nieto, Roman, MD MD rn Loubet, Lynsea, RN RN ll3 Corrections: (The following items were deleted from the chart) 05:18 02:52 Dr. mares ll3
[2022-05-17 03:23] LABS: SARS-CoV-2 Antigen Rapid Res Negative (Negative)
[2022-05-17] MEDS ORDERED: CLINDAMYCIN 600MG/D5W 600 MG/50 ML BAG IV ONE (04:06)
[2022-05-17] MEDS ORDERED: HYDROMORPHONE HCL 1 MG/ML INJ ONE (04:12)
[2022-05-17 05:27] VITALS: TEMP 98.1
[2022-05-17 05:38] VITALS: O2SAT 100
[2022-05-17 05:46] VITALS: BP 146/87
--- NOTE | 2022-05-17 07:52 | RAD REPORT ---
EXAM DESCRIPTION: CT - Facial Bones W/ Mpr - 05/17/2022 1:41 am COMPARISON: None. CLINICAL HISTORY: [facility] fall from horse TECHNIQUE: High resolution axial CT images are obtained through the maxillofacial bones without intr avenous contrast followed by multiplanar reformats. Automated exposure control was utilized on this e xamination as a dose lowering technique. FINDINGS: Maxillofacial bones and mandible: There is a nondisplaced fracture through the anterior ma ndible between the frontal incisors extending inferolaterally to the right. A second nondisplaced man dibular fractures present at the left angle. Mildly displaced fracture of the left lateral pterygoid plate. Orbital structures: Unremarkable. Paranasal sinuses: Clear. Soft tissues: There is a laceration of the subcutaneous tissues overlying the anterior mandible with scattered foci of gas in the tissues and swelling. Visualized intracranial structures: The visualized structures of the skull base are normal. Visualize d intracranial structures are normal. IMPRESSION: Nondisplaced mandibular fractures. Mildly displaced fracture of the left lateral pterygo id plate. Electronically signed by: Misha Rich MD 05/17/2022 2:30 AM CDT Due to temporary technical issues with the PACS/Fluency reporting system, reports are being signed by the in house radiologists without review as a courtesy to insure prompt reporting. The interpreting radiologist is fully responsible for the content of the report.
== END 2022-05-17 05:18 | disposition short-term general hospital (02) ==
LOC: ER 00:48
DX: S02.609A Fracture of mandible, unspecified, initial encounter for closed fracture (principal); S02.19XA Other fracture of base of skull, initial encounter for closed fracture; J45.909 Unspecified asthma, uncomplicated; F90.9 Attention-deficit hyperactivity disorder, unspecified type; Z20.822 Contact with and (suspected) exposure to COVID-19
CPT/HCPCS: 96365; 36415; 70486; 76377; 96375; 99285; 87811; J1170; J2405

== ENCOUNTER 2022-06-25 15:48 | Emergency (ER) | payer OTHER ==
--- OUTSIDE RECORDS SUMMARY | 2022-06-25 15:53 | XMS REPORT | Continuity of Care Document ---
:1995 Author Organization [facility] t Address [address] [place] [address] Care Team Providers Name Role Phone GERTRUDISNILESH JENKINS TELLY Attending Clinician Unavailable APOLINAR RAO Attending Clinician Unavailable Apolinar Rao III Attending Clinician Emi Cosby Attending Clinician EMI COSBY Attending Clinician Unavailable DR LISA GARCIA Attending Clinician Unavailable Jessica Green III Admitting Clinician JESSICA GREEN Admitting Clinician Unavailable DR LISA GARCIA Admitting Clinician Unavailable Problems Condition Condition Condition Status Onset Resolution Last Treating Co mments Source Name Details Category Date Date Treatment Clinician Date FOLLOW UP FOLLOW Diagnosis Active 2021-072022-06-22 Memoria UP Active 07-24 10:41:00 l 05/24/2022 00:00: Iban blair [address] NA NA Active Diagnosis Active 2021-072022-05-24 Memoria 05/18/2022 0- 06:12:00 l [facility] 00:00: [address] MANDIBULAR MANDIBULA Diagnosis Active 2021-072022-05-24 Memoria FRACTURE R FRACTURE 0- 06:50:00 l Active 00:00: Buster 05/17/2022 00 [facility] Asthma Asthma Problem Active 2012-072022-05-21 Mem oria (disorder) (disorder) 0-10 08:29:53 l Active 00:00: Calcium 04/30/2013 00 Problem 05/21/2022 Data migrated from bettermarks on 12/18/14. [facility] Fracture Fracture Problem Active 2022-05-25 Memoria of of 00:29:11 l mandible mandible Iban n (disorder) (disorder) Active Problem 05/25/2022 [facility] Allergic Allergic Problem Resolve 2012-072022-05-21 2022-05-21 Memoria rhinitis rhinitis d 0-10 08:29:53 08:29:53 l (disorder) (disorder) 00:00: He rmann Resolved 00 04/30/2013 Problem 05/21/2022 Data migrated from bettermarks on 12/18/14. [facility] Hypertensi Hypertens Problem Resolve 2012-072022-05-21 2022-05-21 Memoria ve episode yarely d 0-10 08:29:53 08:29:53 l (disorder) episode 00:00: Remedios nn (disorder) 00 Resolved 04/30/2013 Problem 05/21/2022 Data migrated from bettermarks on 12/18/14. [facility] Allergies, Adverse Reactions, Alerts Allergy Allergy Status Severity Reaction(s) Onset Inactive Treating Comm ents Source Name Type Date Date Clinician No Known DA Active [facility] Social History Smoking Status Start Date Stop Date Source Tobacco smoking status 2022-05-18 18:45:29 Memor ial Buster Medications Ordered Filled Start Stop Current Ordering Indication Dosage Frequency Signature Comments Components Source Medication Medication Date Date Medication? Clinician (SIG) Name Name Peridex 2021-07 Yes 0.018 gm = Cortez jannie 0.12% 1- 15 mL, PO, l topical 13:11: BID, swish Herm aimee liquid 00 and spit; do not swallow, # 480 mL, 0 Refill(s), [facility]: [id number], 175.26, cm, 05/21/22 19:34:00 CDT, Height, 69.091, kg, 05/21/22 19:34:00 CDT, Weight Tylenol 325 2021-07 Yes 650 mg = 2 Memoria mg oral 07-22 tab, PO, l tablet 13:11: Q4H, PRN Buster 00 Pain, X 10 day, # 120 tab, 0 Refill(s), [facility]: [id number], 175.26, cm, 05/21/22 19:34:00 CDT, Height, 69.091, kg, 05/21/22 19:34:00 CDT, Weight tramadol 50 2021-07 Yes 50 mg = 1 M emoria mg oral 1-01 tab, PO, l tablet 13:10: Q4H, PRN Calcium 00 Pain Score 4-6, # 18 tab, 0 Refill(s), Pharmacy: [id number], 175.26, cm, 05/21/22 19:34:00 CDT, Height, 69.091, kg, 05/21/22 19:34:00 CDT, Weight Augmentin 2021-07 Yes 875 mg = 1 Me moria 875 mg oral 1-01 tab, PO, l tablet 13:09: BID, X 10 Iban n 00 day, # 20 tab, 0 Refill(s), Pharmacy: [facility] #[id number], 175.26, cm, 05/21/22 19:34:00 CDT, Height, 69.091, kg, 05/21/22 19:34:00 CDT, Weight Motrin 600 2021-07 Yes 600 mg = 1 M emoria mg oral 1-01 tab, PO, l tablet 13:09: Q6H, PRN Buster 00 Pain, take with food. PRN Pain/Fever , # 30 tab, 0 Refill(s), Pharmacy: [facility] #[id number], 175.26, cm, 05/21/22 19:34:00 CDT, Height, 69.091, kg, 05/21/22 19:34:00 CDT, Weight Motrin 600 2021-07 Yes 600 mg = 1 M emoria mg oral 0-27 tab, PO, l tablet 18:02: Q6H, PRN Calcium 00 Pain, take with food. PRN Pain/Fever , # 30 tab, 0 Refill(s), [facility]acy: [id number] Tylenol 2021-07 Yes 1,000 mg = Cortez jannie Extra 0-27 2 tab, PO, l Strength 18:02: TID, PRN Remedios nn 500 mg oral 00 Pain, X 10 tablet day, # 30 tab, 0 Refill(s), Pharmacy: [id number] tramadol 50 2021-07 Yes 50 mg = 1 M emoria mg oral 0-27 tab, PO, l tablet 18:02: BID, PRN Buster 00 Severe Pain At Night, # 10 tab, 0 Refill(s), Pharmacy: [id number] Augmentin 2021-07 Yes 875 mg = 1 Me moria 875 mg oral 0-27 tab, PO, l tablet 18:02: BID, X 10 Iban n 00 day, # 20 tab, 0 Refill(s), Pharmacy: [id number] fentaNYL 2021-07 No 50 Memoria 0-27 microgram, l 17:06: Route: Calcium 00 IVP, ONCE, kg, Priority: STAT, Start date: 05/17/22 12:06:00 CDT, Stop date: 05/17/22 12:06:00 CDT Omnipaque 2021-07 No 50 mL, Memori a 350 mg/mL 0-27 Route: l 15:01: IVP, Drug Form: SOLN, kg, ONCALL, STAT, Start date: 05/17/22 10:01:00 CDT, Duration: 1 doses or times, Dose = 2.2ml/kg, Max dose = 100ml -- "To be infused by Radiology Staff ONLY" Unasyn 2021-07 No Notes: Memoria 0-27 Dosing l 12:20: based on Ampicillin component (Same as: Unasyn) morphine 2021-07 No Notes: Memoria Sulfate 0-27 (Same l 12:04: as:MORPhin e Sulfate) Zofran 2021-07 No Notes: Memoria 0-27 (Same as: l 12:04: Zofran) MEDICATION WASTE Product Size: 4 mg Product Wasted: ___ mg Isolyte S 2021-07 No Notes: Memori a PH-7.4 0-27 (Same as: l (Bolus) IV 12:04: Isolyte S He rmann 00 PH7.4, Normosol-R PH 7.4, Plasma-Lyt e A ) Immunizations Ordered Immunization Filled Immunization Date Status Commen ts Source Name Name diphtheria/pertussis, 2022-05-17 Completed Mem orial acel/tetanus adult 17:36:00 Iban n Hx hepatitis A 2008-10-13 Completed [facility] vaccine<sup>2</sup> 05:00:00 Remedios nn diphtheria/pertussis, 2008-03-05 Completed Mem orial acel/tetanus 05:00:00 Calcium adult<sup>1</sup> Hx meningococcal 2008-03-05 Completed [facility] vaccine<sup>4</sup> 05:00:00 Remedios nn Hx hepatitis A 2008-03-05 Completed [facility] vaccine<sup>3</sup> 05:00:00 Remedios nn varicella virus 2008-03-05 Completed [facility] vaccine<sup>5</sup> 05:00:00 Remedios nn Hx poliovirus 1996-06-10 Completed [facility] vaccine-unspecified<s 06:00:00 Her padron up>6</sup> diphtheria/pertussis, 1996-06-10 Completed Mem orial acel/tetanus 06:00:00 Calcium ped<sup>8</sup> Hx haemophilus b 1996-06-10 Completed [facility] vaccine<sup>10</sup> 06:00:00 Herm aimee Hx poliovirus 1996-04-17 Completed [facility] vaccine-unspecified<s 05:00:00 Her padron up>7</sup> diphtheria/pertussis, 1996-04-17 Completed Mem orial acel/tetanus 05:00:00 Calcium ped<sup>9</sup> Hx haemophilus b 1996-04-17 Completed [facility] vaccine<sup>11</sup> 05:00:00 Herm aimee Hx hepatitis B 1995 Completed [facility] vaccine<sup>12</sup> 05:00:00 Herm aimee Vital Signs Vital Name Observation Time Observation Value Comments Source Height 2020-04-16 06:00:00 175.26 CM Weight 2020-04-16 06:00:00 70.3 KG Heart Rate 2022-05-22 17:04:08 [facility] Temperature Oral (F) 2022-05-22 17:04:01 97.6 F [facility] Systolic (mm Hg) 2022-05-22 17:03:56 Cortez rial Calcium Diastolic (mm Hg) 2022-05-22 17:03:56 Mem orial Buster Height 2022-05-22 00:34:00 5 [ft_i] [facility] Calcium Weight 2022-05-22 00:34:00 [facility] BMI Calculated 2022-05-22 00:34:00 Memori al Calcium Temperature Oral (F) 2022-05-17 17:52:00 98.9 F [facility] Heart Rate 2022-05-17 17:52:00 Memorial Calcium Systolic (mm Hg) 2022-05-17 17:52:00 Cortez rial Buster Diastolic (mm Hg) 2022-05-17 17:52:00 Mem orial Buster Respitory Rate 2022-05-17 17:52:00 Memori al Calcium Systolic (mm Hg) 2022-05-17 11:05:00 Cortez rial Buster Diastolic (mm Hg) 2022-05-17 11:05:00 Mem orial Buster Heart Rate 2022-05-17 11:05:00 Memorial Calcium Respitory Rate 2022-05-17 11:05:00 Memori al Calcium Temperature Oral (F) 2022-05-17 11:05:00 98.6 F [facility] Procedures Procedure Date / Time Performed Performing Clinician [facility] e Procedure on knee [facility] Remedios nn Encounters Start End Encounter Admission Attending Care Care Encounter Source Date/Time Date/Time Type Type Clinicians Facility Department ID 2022-06-11 Outpatient [facility] [id number] SD 15:31:02 [id number] Health 2022-05-31 2022-05-31 Outpatient GERTRUDIS [facility] [id number] [facility] 09:54:00 09:54:00 NILESH 2022-05-21 2022-05-22 Observatio nullFlavo [facility] [id number] Memoria 23:43:00 21:54:00 n r Buster 00 l Hospital Calcium 2022-05-21 2022-05-22 Outpatient JALEN [facility] [id number] [facility] 18:43:00 16:54:00 APOLINAR 2022-05-21 2022-05-22 Outpatient Jalen [facility] [id number] 18:43:00 16:54:00 Apolinar 00 Antelom 2022-05-17 2022-05-17 Emergency nullFlavo [facility] [id number] Memoria 11:04:00 18:04:00 chino Goins 00 l [facility] 2022-05-17 2022-05-17 Outpatient Cosby, [facility] [id number] 06:04:00 13:04:00 Emi Chan 00 2022-05-17 2022-05-17 Outpatient Cosby, [facility] [id number] 06:04:00 13:04:00 Emi Chan 00 2022-05-17 2022-05-17 Emergency E COSBY, [facility] [address] [facility] 04:47:00 13:04:00 EMI 2020-04-16 2020-04-16 Outpatient E LISA GARCIA [facility] [id number] [place] 05:54:00 06:32:00 [facility] Results Test Description Test Time Test Comments Results Result Comments Source HEMATOLOGY 2022-05-22 07:17:00 Test Item Value Reference Range Interpretation Comme nts Platelet (test code = Platelet) 207 133-450 [facility]cbuulrDTVXIXTTWV9188-44-48 07:17:00 Test Item Value Reference Range Interpretation Comments MPV (test code = MPV) 8.7 7.4-10.4 [facility]AHYPPTRFK4539-19-94 07:17:00 Test Item Value Reference Range Interpretation Comments Glucose Lvl (test code = Glucose Lvl) 106 70-99 [facility]JmzqsdwQHPIIPBSY9621-77-35 07:17:00 Test Item Value Reference Range Interpretation Comments BUN (test code = BUN) 8 7-22 [facility] HospitalGliyfcrLWWARAKXU8561-49-48 07:17:00 Test Item Value Reference Range Interpretation Comments Creatinine Lvl (test code = Creatinine 1.05 0.50-1.40 Lvl) [facility] HospitalEitjypiIIWCTEZHM7317-88-78 07:17:00 Test Item Value Reference Range Interpretation Comments Sodium Lvl (test code = Sodium Lvl) 135 135-145 [facility] HospitalRapfohvNQKORQJLG1070-62-73 07:17:00 Test Item Value Reference Range Interpretation Comments Potassium Lvl (test code = Potassium 4.3 3.5-5.1 Lvl) [facility] HospitalZfafujdRZMUAWXKP6297-30-66 07:17:00 Test Item Value Reference Range Interpretation Comments Chloride Lvl (test code = Chloride Lvl) 102 95-109 [place] 971012-11-01 07:17:00 Test Item Value Reference Range Interpretation Comments CO2 (test code = CO2) 23 24-32 [place] [address]-11-01 07:17:00 Test Item Value Reference Range Interpretation Comments Calcium Lvl (test code = Calcium Lvl) 9.1 8.5-10.5 [place] 971012-11-01 07:17:00 Test Item Value Reference Range Interpretation Comments AGAP (test code = AGAP) 14.3 10.0-20.0 [place] 971012-11-01 07:17:00 Test Item Value Reference Range Interpretation Comments eGFR (test code = eGFR) 100 [facility] HospitalTqnkjsmZPRQFHCDAD5014-42-57 07:17:00 Test Item Value Reference Range Interpretation Comments Segs (test code = Segs) 86.3 45.0-75.0 [place] 225542-11-01 07:17:00 Test Item Value Reference Range Interpretation Comments Lymphocytes (test code = Lymphocytes) 9.2 20.0-40.0 [place] 225542-11-01 07:17:00 Test Item Value Reference Range Interpretation Comments Monocytes (test code = Monocytes) 4.3 2.0-12.0 [place] [address]-11-01 07:17:00 Test Item Value Reference Range Interpretation Comments Basophils (test code = 0.2 See_Comment [Aut omated message] The Basophils) system which ge nerated this result tra nsmitted reference range : <=1.0. The reference r catherine was not used to int erpret this result as normal/abnormal . [place] 225542-11-01 07:17:00 Test Item Value Reference Range Interpretation Comments Neutrophils # (test code = Neutrophils 5.2 1.5-8.1 #) [place] 225542-11-01 07:17:00 Test Item Value Reference Range Interpretation Comments Lymphocytes # (test code = Lymphocytes 0.6 1.0-5.5 #) [place] 225542-11-01 07:17:00 Test Item Value Reference Range Interpretation Comments Monocytes # (test code 0.3 See_Comment [Aut omated message] The = Monocytes #) system which generated this result tra nsmitted reference range : <=0.8. The reference r catherine was not used to int erpret this result as normal/abnormal . [facility] HospitalMdjjrwdEIBHKKMXFM1086-72-14 07:17:00 Test Item Value Reference Range Interpretation Comments WBC (test code = WBC) 6.1 3.7-10.4 [facility] HospitalXklpwxxAPMEVDJRUS7263-25-25 07:17:00 Test Item Value Reference Range Interpretation Comments RBC (test code = RBC) 4.69 4.70-6.10 [facility] HospitalIrnhwiyNXKGWJEFAP4831-70-36 07:17:00 Test Item Value Reference Range Interpretation Comments Hgb (test code = Hgb) 13.5 14.0-18.0 [facility] HospitalIbszefwSIXGPMVPXY8832-96-60 07:17:00 Test Item Value Reference Range Interpretation Comments Hct (test code = Hct) 40.7 42.0-54.0 [facility] HospitalUcwhxahOMJDHMZXBP7548-30-30 07:17:00 Test Item Value Reference Range Interpretation Comments MCV (test code = MCV) 86.8 80.0-94.0 [facility] HospitalUkpspnvVNYKFBKENI3283-94-25 07:17:00 Test Item Value Reference Range Interpretation Comments MCH (test code = MCH) 28.7 pg 27.0-31.0 [facility] HospitalRreduwoOMAHBMQIVG3442-57-29 07:17:00 Test Item Value Reference Range Interpretation Comments MCHC (test code = MCHC) 33.1 32.0-36.0 [facility] HospitalEjoucxhQQUANMUZDH6977-97-75 07:17:00 Test Item Value Reference Range Interpretation Comments RDW (test code = RDW) 13.9 11.5-14.5 [facility] CenterPxmpacePNHKHO0585-73-17 22:18:10 Test Item Value Reference Range Interpretation Comments RADRPT (test code EXAMINATION: CT facial bones = RADRPT) without contrastDATE: 05/21/2022INDICATION: Mandibular fracture.FINDINGS:Noncontras t CT images of the facial bones are compared to study dated 05/17/2022. 3-D change surface reformatting images are also submitted for interpretationOver the interval, side plates and screws is been placed across the mandibular symphysis, securing nondisplaced fractures of the right mandibular symphysis in good alignment. Nondisplaced fractures the left mandibular angle again noted. Arch bars are in place.IMPRESSION:Internal reduction fractures [facility] CenterOylwnfzFLDINN0252-55-60 19:17:41 Test Item Value Reference Range Interpretation Comments RADRPT (test code EXAM: CT FACIAL BONES = RADRPT) WITHOUT CONTRASTDATE: 05/17/2022 12:26INDICATION: - Mandibular FxCOMPARISON: CT facial bones from earlier the same dateTECHNIQUE: Volumetric CT of the facial bones is acquired without contrast. Axial, coronal and sagittal images are provided. IV contrast: None.DLP: Refer to CT protocol formUT SECTION: ERFINDINGS: Optometrist President/Practice Owner: NoncontributoryBones: Similar appearance of a minimally displaced right parasymphyseal mandibular fracture which courses between the central incisors, although a cerclage wire is seen about all 4 mandibular incisors on this current study. Similar appearance of a minimally displaced fracture through the left angle of the mandible which surfaces just posterior to the posterior most left mandibular molar. Similar appearance of the left lateral pterygoid plate fracture with 6 mm of posterior displacement. Temporomandibular joints are maintained.The paranasal sinuses and mastoid air cells are clear.Soft tissues: No soft tissue abnormality is identified. No globe contour abnormality is seen. There is no intraconal hematoma. No radiopaque foreign body is identified.IMPRESSION: 1. Mandibular incisor cerclage wire in expected position.2. Otherwise similar appearance of the left lateral pterygoid plate fracture, left mandibular angle fracture and right parasymphyseal mandibular fracture. [facility] HospitalAvmuyuqCZFZIEAYNY7667-53-09 17:49:00 Test Item Value Reference Range Interpretation Comments Monocytes # (test code 0.7 See_Comment [Aut omated message] The = Monocytes #) system which generated this result tra nsmitted reference range : <=0.8. The reference r catherine was not used to int erpret this result as normal/abnormal . [facility] HospitalWhhfcwpOVVXXLILQB5161-27-56 17:49:00 Test Item Value Reference Range Interpretation Comments WBC X 10x3 (test code = WBC X 10x3) 7.0 3.7-10.4 [facility] HospitalBradmtkFBWUPQAWCW1527-28-60 17:49:00 Test Item Value Reference Range Interpretation Comments RBC X 10x6 (test code = RBC X 10x6) 5.09 4.70-6.10 [place] 225542-10-27 17:49:00 Test Item Value Reference Range Interpretation Comments Hgb (test code = Hgb) 14.6 14.0-18.0 [place] 225542-10-27 17:49:00 Test Item Value Reference Range Interpretation Comments Hct (test code = Hct) 44.3 42.0-54.0 [facility] HospitalBgtkbmrBQBMJFUMZJ7788-47-12 17:49:00 Test Item Value Reference Range Interpretation Comments MCV (test code = MCV) 87.1 80.0-94.0 [place] 225542-10-27 17:49:00 Test Item Value Reference Range Interpretation Comments MCH (test code = MCH) 28.6 pg 27.0-31.0 [facility] HospitalRhyvwnpWOHYHWNROH6195-33-35 17:49:00 Test Item Value Reference Range Interpretation Comments MCHC (test code = MCHC) 32.9 32.0-36.0 [facility] HospitalWjwwhbtGQHSUYKVHI4882-19-91 17:49:00 Test Item Value Reference Range Interpretation Comments RDW (test code = RDW) 14.2 11.5-14.5 [place] 225542-10-27 17:49:00 Test Item Value Reference Range Interpretation Comments Platelet (test code = Platelet) 197 133-450 [facility] HospitalKupgnuiYRLDZBPKBV2350-98-69 17:49:00 Test Item Value Reference Range Interpretation Comments MPV (test code = MPV) 8.2 7.4-10.4 [place] 225542-10-27 17:49:00 Test Item Value Reference Range Interpretation Comments Segs (test code = Segs) 64.6 45.0-75.0 [place] 225542-10-27 17:49:00 Test Item Value Reference Range Interpretation Comments Lymphocytes (test code = Lymphocytes) 23.9 20.0-40.0 [place] [address]-10-27 17:49:00 Test Item Value Reference Range Interpretation Comments Monocytes (test code = Monocytes) 10.4 2.0-12.0 [place] 225542-10-27 17:49:00 Test Item Value Reference Range Interpretation Comments Eosinophils (test code = 0.5 See_Comment [A utomated message] The Eosinophils) system which ge nerated this result tra nsmitted reference range : <=4.0. The reference r catherine was not used to int erpret this result as normal/abnormal . [facility] HospitalMqthylmLDCRZFEHQD7111-40-78 17:49:00 Test Item Value Reference Range Interpretation Comments Basophils (test code = 0.6 See_Comment [Aut omated message] The Basophils) system which ge nerated this result tra nsmitted reference range : <=1.0. The reference r catherine was not used to int erpret this result as normal/abnormal . [facility] HospitalQgrbdzhVNPIOWFWJB7702-92-95 17:49:00 Test Item Value Reference Range Interpretation Comments Neutrophils # (test code = Neutrophils 4.5 1.5-8.1 #) [facility] HospitalLhofhtlEANMMOEFWR1764-00-65 17:49:00 Test Item Value Reference Range Interpretation Comments Lymphocytes # (test code = Lymphocytes 1.7 1.0-5.5 #) [facility] HospitalJvgkqbtEFETWBEAYL7213-52-80 17:49:00 Test Item Value Reference Range Interpretation Comments Monocytes # (test code 0.7 See_Comment [Aut omated message] The = Monocytes #) system which generated this result tra nsmitted reference range : <=0.8. The reference r catherine was not used to int erpret this result as normal/abnormal . [facility] HospitalAvwkuhdZWUTQUMLYE7598-36-75 17:49:00 Test Item Value Reference Range Interpretation Comments WBC X 10x3 (test code = WBC X 10x3) 7.0 3.7-10.4 [facility] HospitalUokbnhgTMEMBEPTGT6403-67-80 17:49:00 Test Item Value Reference Range Interpretation Comments RBC X 10x6 (test code = RBC X 10x6) 5.09 4.70-6.10 [facility] HospitalHluzexaVNGIOZFTSE5118-51-13 17:49:00 Test Item Value Reference Range Interpretation Comments Hgb (test code = Hgb) 14.6 14.0-18.0 [place] 225542-10-27 17:49:00 Test Item Value Reference Range Interpretation Comments Hct (test code = Hct) 44.3 42.0-54.0 [place] 225542-10-27 17:49:00 Test Item Value Reference Range Interpretation Comments MCV (test code = MCV) 87.1 80.0-94.0 [facility] HospitalAdsuumuEDSQKODWFH5704-62-20 17:49:00 Test Item Value Reference Range Interpretation Comments MCH (test code = MCH) 28.6 pg 27.0-31.0 [facility] CenterUsspyaaICGXOZEFQI4365-40-78 17:49:00 Test Item Value Reference Range Interpretation Comments MCHC (test code = MCHC) 32.9 32.0-36.0 [facility] CenterGhuaaghWUWXAKRATR3331-12-32 17:49:00 Test Item Value Reference Range Interpretation Comments RDW (test code = RDW) 14.2 11.5-14.5 [facility] CenterFgycmwzNJLFYGJOJO7524-33-63 17:49:00 Test Item Value Reference Range Interpretation Comments Platelet (test code = Platelet) 197 133-450 [facility] CenterExourmmSRZNBXZYSI0613-63-13 17:49:00 Test Item Value Reference Range Interpretation Comments MPV (test code = MPV) 8.2 7.4-10.4 [facility] CenterVyhxttfYPKUKALSLN5153-74-14 17:49:00 Test Item Value Reference Range Interpretation Comments Coronavirus (COVID-19) Not Detected DUARTE (test code = (05/17/22 12:49 PM) Coronavirus (COVID-19) DUARTE) [facility] CuaokpbZPKXOTYDDX3961-87-70 17:49:00 Test Item Value Reference Range Interpretation Comments Coronavirus (COVID-19) Not Detected DUARTE (test code = (05/17/22 12:49 PM) Coronavirus (COVID-19) DUARTE) [facility] [employer] [id number] 17:49:00 Test Item Value Reference Range Interpretation Comments ABO/Rh (test code = ABO/Rh) B POS [facility] [employer] [id number] 17:49:00 Test Item Value Reference Range Interpretation Comments Antibody Scrn (test Negative (05/17/22 code = Antibody Scrn) 12:49 PM) [facility] [employer] [id number] 17:49:00 Test Item Value Reference Range Interpretation Comments ABO/Rh (test code = ABO/Rh) B POS [facility] [employer] [id number] 17:49:00 Test Item Value Reference Range Interpretation Comments Antibody Scrn (test Negative (05/17/22 code = Antibody Scrn) 12:49 PM) [facility] [employer] [id number] 17:49:00 Test Item Value Reference Range Interpretation Comments Glucose Lvl (test code = Glucose Lvl) 106 70-99 [place] 685542-10-27 17:49:00 Test Item Value Reference Range Interpretation Comments BUN (test code = BUN) 11 02-09 [place] 685542-10-27 17:49:00 Test Item Value Reference Range Interpretation Comments Creatinine Lvl (test code = Creatinine 1.04 0.50-1.40 Lvl) [place] 685542-10-27 17:49:00 Test Item Value Reference Range Interpretation Comments Sodium Lvl (test code = Sodium Lvl) 139 135-145 [place] 685542-10-27 17:49:00 Test Item Value Reference Range Interpretation Comments Potassium Lvl (test code = Potassium 3.8 3.5-5.1 Lvl) [place] 685542-10-27 17:49:00 Test Item Value Reference Range Interpretation Comments Chloride Lvl (test code = Chloride Lvl) 106 95-109 [place] 685542-10-27 17:49:00 Test Item Value Reference Range Interpretation Comments CO2 (test code = CO2) 29 24-32 [place] 685542-10-27 17:49:00 Test Item Value Reference Range Interpretation Comments Calcium Lvl (test code = Calcium Lvl) 9.0 8.5-10.5 [facility]2022-10-27 17:49:00 Test Item Value Reference Range Interpretation Comments AGAP (test code = AGAP) 7.8 10.0-20.0 [place] 685542-10-27 17:49:00 Test Item Value Reference Range Interpretation Comments eGFR (test code = eGFR) 102 [place] [id number] 17:49:00 Test Item Value Reference Range Interpretation Comments Glucose Lvl (test code = Glucose Lvl) 106 70-99 [place] [id number] 17:49:00 Test Item Value Reference Range Interpretation Comments BUN (test code = BUN) 11 02-09 [id number] 17:49:00 Test Item Value Reference Range Interpretation Comments Creatinine Lvl (test code = Creatinine 1.04 0.50-1.40 Lvl) [place] [id number] 17:49:00 Test Item Value Reference Range Interpretation Comments Sodium Lvl (test code = Sodium Lvl) 139 135-145 [facility]mm[facility]BPQZJTRF5338-14-75 17:49:00 Test Item Value Reference Range Interpretation Comments Potassium Lvl (test code = Potassium 3.8 3.5-5.1 Lvl) [id number] 17:49:00 Test Item Value Reference Range Interpretation Comments Chloride Lvl (test code = Chloride Lvl) 106 95-109 [facility]VipgcuvUMIRGDOQU7811-21-03 17:49:00 Test Item Value Reference Range Interpretation Comments CO2 (test code = CO2) 29 24-32 [facility]OnjvjanKOLVTMGUQ2577-78-25 17:49:00 Test Item Value Reference Range Interpretation Comments Calcium Lvl (test code = Calcium Lvl) 9.0 8.5-10.5 [facility] HospitalMvaadalBXRQMOYGF2678-78-94 17:49:00 Test Item Value Reference Range Interpretation Comments AGAP (test code = AGAP) 7.8 10.0-20.0 [facility] HospitalKukqlvbPGNTQABPZ1589-07-74 17:49:00 Test Item Value Reference Range Interpretation Comments eGFR (test code = eGFR) 102 [id number] 17:49:00 Test Item Value Reference Range Interpretation Comments Segs (test code = Segs) 64.6 45.0-75.0 [facility]IwzkggtZEZNKJXMNA3523-70-02 17:49:00 Test Item Value Reference Range Interpretation Comments Lymphocytes (test code = Lymphocytes) 23.9 20.0-40.0 [place] [id number] 17:49:00 Test Item Value Reference Range Interpretation Comments Monocytes (test code = Monocytes) 10.4 2.0-12.0 [place] [address]-10-27 17:49:00 Test Item Value Reference Range Interpretation Comments Eosinophils (test code = 0.5 See_Comment [A utomated message] The Eosinophils) system which ge nerated this result tra nsmitted reference range : <=4.0. The reference r catherine was not used to int erpret this result as normal/abnormal . [facility] HospitalSpjsqdhVPONRXQPMX2039-20-46 17:49:00 Test Item Value Reference Range Interpretation Comments Basophils (test code = 0.6 See_Comment [Aut omated message] The Basophils) system which ge nerated this result tra nsmitted reference range : <=1.0. The reference r catherine was not used to int erpret this result as normal/abnormal . [facility] Ho[id number] 17:49:00 Test Item Value Reference Range Interpretation Comments Neutrophils # (test code = Neutrophils 4.5 1.5-8.1 #) [facility] H[id number] 17:49:00 Test Item Value Reference Range Interpretation Comments Lymphocytes # (test code = Lymphocytes 1.7 1.0-5.5 #) [place] [id number] 15:23:27 Test Item Value Reference Range Interpretation Comments RADRPT (test code EXAM: CTA NECKDATE: = RADRPT) 05/17/2022INDICATION: Mandibular Fx.COMPARISON: CT cervical spine 05/17/2022TECHNIQUE: Rapid acquisition spiral CT images of the neck were obtained between the aortic arch and the skull base during intravenous infusion of iodinated contrast for the purposes of CT angiography. 3-D CT angiographic images are created using MIP technique at the acquisition workstation. The source images are also presented for interpretation.IV contrast: Refer to MAR/medicine technologist documentationDLP: Refer to CT protocol formFINDINGS:NECK CTA:Aortic arch: Left-sided aortic arch. Common origin of the right brachiocephalic and left common carotid arteries, incidental anatomic variant. No origin stenosis is identified.Carotid arteries: Normal. No evidence of vascular injury.Vertebral arteries: Normal. No evidence of vascular injury.Intracranial arteries: The visible intracranial vessels are unremarkable.Other: The soft tissues of the neck are normal. Nondisplaced fractures of the right symphysis and left mandibular angle and left lateral pterygoid plate. IMPRESSION: * Normal arterial evaluation on CTA of the neck. Specifically, no arterial injury.(All qualitative and quantitative assessments of carotid bifurcation and proximal internal carotid artery stenosis are made referencing the distal internal carotid artery {NASCET criteria}.) [place] [id number] 14:41:39 Test Item Value Reference Range Interpretation Comments RADRPT (test code = EXAM: CT BRAIN WITHOUT RADRPT) CONTRASTDATE: 05/17/2022INDICATION: - Mandibular Fx \\E\\ Fall from horse.COMPARISON: None.TECHNIQUE: Axial CT images of the brain were obtained. Sagittal and coronal reformats.IV contrast: NoneDLP: Refer to CT protocol formFINDINGS: There is no edema, hemorrhage, mass lesion or other acute intracranial abnormality. There is no chronic abnormality.The skull base, calvarium, and included facial bones are unremarkable. Orbital contents are negative for acute pathology.The paranasal sinuses are predominantly clear.Partially visualized fracture in the left lateral pterygoid plate. Refer to concurrent CT scan of the face for other facial fractures.IMPRESSION:* Negative CT scan for acute intracranial posttraumatic injuries. [facility] [id number] 14:04:31 Test Item Value Reference Range Interpretation Comments RADRPT (test code = EXAM: CT FACIAL BONES RADRPT) OUTSIDE CONSULTATIONDATE: 05/17/2022 7:54INDICATION: Second interpretation of outside CT performed on trauma transfer patient.COMPARISON: None.TECHNIQUE: Multiplanar images of the facial bones without contrast. Axial, sagittal and coronal images are provided. OUTSIDE REPORT: from [facility] DISCUSSION: A minimally displaced right parasymphyseal mandible fracture is noted, coursing between the central incisors at the alveolar ridge. There is also a minimally displaced fracture through the left mandibular angle, just behind the third molar socket. Seen best on axial and coronal images, is a mildly displaced fracture of the left lateral pterygoid plate. No other bony or articular abnormality is present. Swelling and gas are seen about the mandibular parasymphyseal fracture, but no other acute soft tissue abnormality is identified.IMPRESSION:1. Mandibular parasymphyseal left ankle fractures, with surrounding gas and swelling at the parasymphyseal site.2. Left lateral pterygoid plate fracture.This report generally agrees with the initial interpretation obtained from the referring facility. [facility] [id number] 13:34:35 Test Item Value Reference Range Interpretation Comments RADRPT (test code = EXAM: CT CERVICAL SPINE RADRPT) WITHOUT CONTRASTDATE: 05/17/2022 7:13INDICATION: - Mandibular FxCOMPARISON: None.TECHNIQUE: Volumetric acquisition of the cervical spine without contrast. Axial, sagittal and coronal images are provided. DISCUSSION: The known mandible fracture is not visible on this examination.No acute fracture or malalignment is identified. No acute soft tissue abnormality is identified.IMPRESSION:1. No acute abnormality. [facility]
--- NOTE | 2022-06-25 16:21 | EDPHYS ---
Physician Documentation [facility] Name: Paulette Lozoya Age: 26 yrs Sex: Male : 1995 Arrival Date: 06/25/2022 Time: 15:49 Bed Waiting Private MD: ED Physician River Reno HPI: 06/25 16:19 This 26 yrs old Black Male presents to ER via Unassigned with complaints of Finger cp Injury, Laceration. 16:19 The patient or guardian reports a laceration, irregular. The complaints affect the cp santos side right fourth finger distal phalanx. 16:19 Context: resulted from sharp edge of door. Onset: The symptoms/episode began/occurred cp yesterday afternoon. Associated signs and symptoms: The patient has no apparent associated signs or symptoms. Historical: - Allergies: 16:25 No Known Allergies; jl7 - PMHx: 16:25 adhd; Asthma; jl7 - PSHx: 16:25 knee surgery; jl7 - Immunization history:: Adult Immunizations up to date. - Social history:: Smoking status: Reported history of juuling and/or vaping. ROS: 16:19 Constitutional: Negative for body aches, chills, fever, poor PO intake. cp 16:19 Skin: Positive for laceration(s), of the santos side distal phalanx right fourth finger.cp 16:19 Neuro: Negative for numbness, tingling. 16:19 All other systems are negative. Exam: 16:19 Head/Face: Normocephalic, atraumatic. cp 16:19 Constitutional: The patient appears in no acute distress, alert, awake, comfortable, well developed, well nourished. 16:19 Cardiovascular: Rate: normal. 16:19 Respiratory: the patient does not display signs of respiratory distress, Respirations: normal, no use of accessory muscles, no retractions. 16:19 Abdomen/GI: Exam negative for discomfort, distension, guarding, Inspection: abdomen appears normal. 16:19 Skin: injury, laceration(s), of the santos side distal phalanx right fourth finger, that can be described as clean, no foreign body, irregular, without bleeding, nail intact with no signs of damage, right fourth finger neurovascular intact. Vital Signs: 16:16 BP 129 / 67; Pulse 84; Resp 17; Temp 97.5; Pulse Ox 100% ; Weight 63.5 kg; Height 5 ft. jl7 9 in. (175.26 cm); Pain 0/10; 16:16 Body Mass Index 20.67 (63.50 kg, 175.26 cm) jl7 MDM: 16:20 Patient medically screened. cp 16:20 Data reviewed: vital signs, nurses notes, and as a result, I will discharge patient. cp 16:20 Counseling: I had a detailed discussion with the patient and/or guardian regarding: the cp historical points, exam findings, and any diagnostic results supporting the discharge/admit diagnosis, to return to the emergency department if symptoms worsen or persist or if there are any questions or concerns that arise at home. ED course: Wound cleaned and dressed. Due to injury occurring close to 24 hours, no sutures placed. Will discharge to home for continued monitoring. Administered Medications: No medications were administered Disposition: 17:16 Co-signature as Attending Physician, River Reno MD I agree with the assessment and kdr plan of care. Disposition Summary: 06/25/22 16:20 Discharge Ordered Location: Home cp Problem: new cp Symptoms: are unchanged cp Condition: Stable cp Diagnosis - Laceration without foreign body of right ring finger without damage to nail cp Followup: cp - With: Emergency Department - When: As needed - Reason: Worsening of condition Discharge Instructions: - Discharge Summary Sheet cp - Laceration Care, Adult cp Forms: - Medication Reconciliation Form cp - Thank You Letter cp - Antibiotic Education cp - Prescription Opioid Use cp Prescriptions: - Cephalexin 500 mg Oral Capsule - take 1 capsule by ORAL route every 8 hours for 10 days; 30 capsule; Refills: 0, cp Product Selection Permitted Signatures: River Reno MD MD kdr Page, Corey, PA PA cp Diogo Montiel, RN RN jl7
--- NOTE | 2022-06-25 16:28 | ER ---
Nurse's Notes [facility] Name: Paulette Lozoya Age: 26 yrs Sex: Male : 1995 Arrival Date: 06/25/2022 Time: 15:49 Bed Waiting Private MD: Diagnosis: Laceration without foreign body of right ring finger without damage to nail Presentation: 06/25 16:16 Chief complaint: Patient states: Slid right ring finger on sharp metal door last night jl7 and cut it. Coronavirus screen: Vaccine status: At this time, the client does not indicate any symptoms associated with coronavirus-19. Ebola Screen: No symptoms or risks identified at this time. Initial Sepsis Screen: Does the patient meet any 2 criteria? No. Patient's initial sepsis screen is negative. Does the patient have a suspected source of infection? No. Patient's initial sepsis screen is negative. Risk Assessment: Do you want to hurt yourself or someone else? Patient reports no desire to harm self or others. Onset of symptoms was June 24, 2022 at 17:00. 16:16 Method Of Arrival: Ambulatory jl7 16:16 Acuity: BLAKE 4 jl7 Triage Assessment: 16:25 General: Appears in no apparent distress. uncomfortable, Behavior is calm, cooperative, jl7 appropriate for age. Pain: Denies pain. Musculoskeletal: Swelling absent. Injury Description: Laceration sustained to right ring finger. Historical: - Allergies: 16:25 No Known Allergies; jl7 - PMHx: 16:25 adhd; Asthma; jl7 - PSHx: 16:25 knee surgery; jl7 - Immunization history:: Adult Immunizations up to date. - Social history:: Smoking status: Reported history of juuling and/or vaping. Screenin:18 Abuse screen: Denies threats or abuse. Denies injuries from another. Nutritional jl7 screening: No deficits noted. Tuberculosis screening: No symptoms or risk factors identified. Fall Risk None identified. Assessment: 16:18 Reassessment: NANCY Shultz in triage assessing pt. jl7 Vital Signs: 16:16 BP 129 / 67; Pulse 84; Resp 17; Temp 97.5; Pulse Ox 100% ; Weight 63.5 kg; Height 5 ft. jl7 9 in. (175.26 cm); Pain 0/10; 16:16 Body Mass Index 20.67 (63.50 kg, 175.26 cm) jl7 ED Course: 15:49 Patient arrived in ED. am2 15:51 Carrington Payne PA is PHCP. cp 15:51 River Reno MD is Attending Physician. cp 16:18 Patient has correct armband on for positive identification. jl7 16:25 Triage completed. jl7 16:25 Arm band placed on right wrist. jl7 16:27 No provider procedures requiring assistance completed. Patient did not have IV access jl7 during this emergency room visit. Administered Medications: No medications were administered Medication: 16:18 VIS not applicable for this client. jl7 Outcome: 16:20 Discharge ordered by MD. cp 16:27 Discharged to home ambulatory. jl7 16:27 Condition: stable 16:27 Discharge instructions given to patient, Instructed on discharge instructions, follow up and referral plans. medication usage, Demonstrated understanding of instructions, follow-up care, medications, Prescriptions given X 1. 16:28 Patient left the ED. jl7 Signatures: Carrington Payne PA PA cp Diogo Montiel RN RN jl7 Vivian Armando am2
[2022-06-25 17:44] VITALS: BP 129/67; TEMP 97.5; O2SAT 100
== END 2022-06-25 16:28 | disposition home or self-care (01) ==
LOC: ER 15:48
DX: S61.214A Laceration without foreign body of right ring finger without damage to nail, initial encounter (principal)
CPT/HCPCS: 99282

== ENCOUNTER 2022-09-25 10:08 | Emergency (ER) | payer SELFPAY ==
--- OUTSIDE RECORDS SUMMARY | 2022-09-25 10:13 | XMS REPORT | Continuity of Care Document ---
:1995 Author Organization [facility] t Address [address] [facility] [place] [address] Care Team Providers Name Role Phone NILESH CABA Attending Clinician Unavailable LEANA MATTHEW Attending Clinician Unavailable LEANA MATTHEW Attending Clinician Unavailable EMI GRANDA Attending Clinician Unavailable DR LISA GARCIA Attending Clinician Unavailable NIKITA GREEN Admitting Clinician Unavailable DR LISA GARCIA Admitting Clinician Unavailable Payers Payer Name Policy Type Policy Number Effective Date Expiration Date S ource [employer] [id number] 2022 COMPENSATION 00:00:00 GENERIC INTERFACED [id number] 2021 [facility] PL[facility] 00:00:00 Problems Condition Condition Condition Status Onset Resolution Last Treating Co mments Source Name Details Category Date Date Treatment Clinician Date FOLLOW UP FOLLOW UP Diagnosis Active 2021-072022-06-22 Memoria Active - 10:41:00 l 05/24/2022 00:00: Iban blair [address] NA NA Active Diagnosis Active 2021-072022-05-24 Memoria 05/18/2022 0-28 06:12:00 shelbie [facility] 00:00: [address] MANDIBULAR Diagnosis Active 2021-072022-05-24 Memoria FRACTURE MANDIBULAR 0- 06:50:00 l FRACTURE 00:00: [facility] 00 05/17/2022 [facility] Asthma Asthma Problem Active 2012-072022-05-21 Cortez jannie (disorder) (disorder) 0-10 08:29:53 l Active 00:00: Buster 04/30/2013 00 Problem 05/21/2022 Data migrated from [employer] on 12/18/14. [facility] Fracture Fracture Problem Active 2022-05-25 Memoria of of 00:29:11 l mandible mandible Iban n (disorder) (disorder) Active Problem 05/25/2022 [facility] Allergic Allergic Problem Resolve 2012-072022-05-21 2022-05-21 Memoria rhinitis rhinitis d 0-10 08:29:53 08:29:53 l (disorder) (disorder) 00:00: He rmann Resolved 00 04/30/2013 Problem 05/21/2022 Data migrated from [employer] on 12/18/14. [facility] Hypertensi Hypertens Problem Resolve 2012-072022-05-21 2022-05-21 Memoria ve episode yarely d 0-10 08:29:53 08:29:53 l (disorder) episode 00:00: Remedios nn (disorder) 00 Resolved 04/30/2013 Problem 05/21/2022 Data migrated from [employer] on 12/18/14. [facility] Allergies, Adverse Reactions, Alerts Allergy Allergy Status Severity Reaction(s) Onset Inactive Treating Comm ents Source Name Type Date Date Clinician No Known DA Active [facility] Social History Smoking Status Start Date Stop Date Source Tobacco smoking status 2022-05-18 18:45:29 Ivonne Goins Medications Ordered Filled Start Stop Current Ordering Indication Dosage Frequency Signature Comments Components Source Medication Medication Date Date Medication? Clinician (SIG) Name Name Peridex 2021-07 Yes 0.018 gm = Cortez jannie 0.12% 1-01 15 mL, PO, l topical 13:11: BID, swish Herm aimee liquid 00 and spit; do not swallow, # 480 mL, 0 Refill(s), Pharmacy: [id number], 175.26, cm, 05/21/22 19:34:00 CDT, Height, 69.091, kg, 05/21/22 19:34:00 CDT, Weight Tylenol 325 2021-07 Yes 650 mg = 2 Memoria mg oral 1-01 tab, PO, l tablet 13:11: Q4H, PRN Buster 00 Pain, X 10 day, # 120 tab, 0 Refill(s), Pharmacy: [facility] #[id number], 175.26, cm, 05/21/22 19:34:00 CDT, Height, 69.091, kg, 05/21/22 19:34:00 CDT, Weight tramadol 50 2021-07 Yes 50 mg = 1 M emoria mg oral 1-01 tab, PO, l tablet 13:10: Q4H, PRN [place] 00 Pain Score 4-6, # 18 tab, 0 Refill(s), Pharmacy: [facility] #[id number], 175.26, cm, 05/21/22 19:34:00 CDT, Height, 69.091, kg, 05/21/22 19:34:00 CDT, Weight Augmentin 2021-07 Yes 875 mg = 1 Me moria 875 mg oral 1-01 tab, PO, l tablet 13:09: BID, X 10 Iban n 00 day, # 20 tab, 0 Refill(s), Pharmacy: [facility] #[id number], 175.26, cm, 05/21/22 19:34:00 CDT, Height, 69.091, kg, 05/21/22 19:34:00 CDT, Weight Motrin 600 2021-07 Yes 600 mg = 1 M emoria mg oral 1-01 tab, PO, l tablet 13:09: Q6H, PRN [place] 00 Pain, take with food. PRN Pain/Fever , # 30 tab, 0 Refill(s), Pharmacy: [facility] #[id number], 175.26, cm, 05/21/22 19:34:00 CDT, Height, 69.091, kg, 05/21/22 19:34:00 CDT, Weight Motrin 600 2021-07 Yes 600 mg = 1 M emoria mg oral 0-27 tab, PO, l tablet 18:02: Q6H, PRN Buster 00 Pain, take with food. PRN Pain/Fever , # 30 tab, 0 Refill(s), Pharmacy: [facility] #[id number] Tylenol 2021-07 Yes 1,000 mg = Cortez jannie Extra 0-27 2 tab, PO, l Strength 18:02: TID, PRN Remedios nn 500 mg oral 00 Pain, X 10 tablet day, # 30 tab, 0 Refill(s), Pharmacy: [facility] #[id number] tramadol 50 2021-07 Yes 50 mg = 1 M emoria mg oral 0-27 tab, PO, l tablet 18:02: BID, PRN [place] 00 Severe Pain At Night, # 10 tab, 0 Refill(s), Pharmacy: [facility] #[id number] Augmentin 2021-07 Yes 875 mg = 1 Me moria 875 mg oral 0-27 tab, PO, l tablet 18:02: BID, X 10 Iban n 00 day, # 20 tab, 0 Refill(s), Pharmacy: [facility] #[id number] fentaNYL 2021-07 No 50 Memoria 0-27 microgram, l 17:06: Route: IVP, ONCE, kg, Priority: STAT, Start date: 05/17/22 12:06:00 CDT, Stop date: 05/17/22 12:06:00 CDT Omnipaque 2021-07 No 50 mL, Memori a 350 mg/mL 0- Route: l 15:01: IVP, Drug Form: SOLN, [...] Memoria 0-27 (Same as: l 12:04: Zofran) Buster 00 MEDICATION WASTE Product Size: 4 mg Product [...] diphtheria/pertussis, 2008-03-05 Completed Mem orial acel/tetanus 05:00:00 Buster adult<sup>1</sup> Hx meningococcal 2008-03-05 Completed [facility] vaccine<sup>4</sup> 05:00:00 Remedios nn Hx hepatitis A 2008-03-05 Completed [facility] vaccine<sup>3</sup> 05:00:00 Remedios nn varicella virus 2008-03-05 Completed [facility] vaccine<sup>5</sup> 05:00:00 Remedios nn Hx poliovirus 1996-06-10 Completed [facility] vaccine-unspecified<s 06:00:00 Her padron up>6</sup> diphtheria/pertussis, 1996-06-10 Completed Mem orial acel/tetanus 06:00:00 [place] ped<sup>8</sup> Hx haemophilus b 1996-06-10 Completed [facility] vaccine<sup>10</sup> 06:00:00 Susanne aimee Hx poliovirus 1996-04-17 Completed [facility] vaccine-unspecified<s 05:00:00 Her padron up>7</sup> diphtheria/pertussis, 1996-04-17 Completed Mem orial acel/tetanus 05:00:00 Buster ped<sup>9</sup> Hx haemophilus b 1996-04-17 Completed [facility] vaccine<sup>11</sup> 05:00:00 Susanne aimee Hx hepatitis B 1995 Completed [facility] vaccine<sup>12</sup> 05:00:00 Susanne aimee Vital Signs Vital Name Observation Time Observation Value Comments Source Height 2020-04-16 06:00:00 175.26 CM Weight 2020-04-16 06:00:00 70.3 KG Heart Rate 2022-05-22 17:04:08 [facility] Temperature Oral (F) 2022-05-22 17:04:01 97.6 F [facility] [place] Systolic (mm Hg) 2022-05-22 17:03:56 Cortez rial Buster Diastolic (mm Hg) 2022-05-22 17:03:56 Mem orial [place] Height 2022-05-22 00:34:00 5 [ft_i] [facility] [place] Weight 2022-05-22 00:34:00 [facility] BMI Calculated 2022-05-22 00:34:00 Memori al Buster Temperature Oral (F) 2022-05-17 17:52:00 98.9 F [facility] [place] Heart Rate 2022-05-17 17:52:00 [facility] [place] Systolic (mm Hg) 2022-05-17 17:52:00 Cortez rial Buster Diastolic (mm Hg) 2022-05-17 17:52:00 Mem orial [place] Respitory Rate 2022-05-17 17:52:00 Memori al Buster Systolic (mm Hg) 2022-05-17 11:05:00 Cortez rial Buster Diastolic (mm Hg) 2022-05-17 11:05:00 Mem orial [place] Heart Rate 2022-05-17 11:05:00 [facility] [place] Respitory Rate 2022-05-17 11:05:00 Memori al Buster Temperature Oral (F) 2022-05-17 11:05:00 98.6 F [facility] [place] Procedures Procedure Date / Time Performed Performing Clinician [facility] e Procedure on knee [facility] Remedios nn Encounters Start End Encounter Admission Attending Care Care Encounter Source Date/Time Date/Time Type Type Clinicians Facility Department ID 2022-08-21 Outpatient [facility] [id number] [place] 13:01:05 [id number] [facility] 2022-08-16 Outpatient [facility] [id number] [place] 18:19:14 [id number] [facility] 2022-06-11 Outpatient [facility] [id number] [place] 15:31:02 [id number] [facility] 2022-07-26 2022-08-24 Outpatient GERTRUDIS [facility] [id number] [facility] 09:50:00 23:59:00 NILESH 2022-05-31 2022-06-29 Outpatient GERTRUDIS [facility] [address] [facility] 09:54:00 23:59:00 NILESH 2022-05-21 2022-05-22 Observatio nullFlavo [facility] [id number] Memoria 23:43:00 21:54:00 n r Buster 00 l [facility] 2022-05-21 2022-05-22 Outpatient WOJACKIE, [facility] [id number] [facility] 18:43:00 16:54:00 [facility] 2022-05-21 2022-05-21 Outpatient WOERUYEN, [facility] [id number] [place] 07:30:00 07:30:00 [facility] 2022-05-17 2022-05-17 Emergency nullFlavo [facility] [id number] Memoria 11:04:00 18:04:00 r Buster 00 l [facility] 2022-05-17 2022-05-17 Emergency E GRANDA, [facility] [address] [facility] 04:47:00 13:04:00 EMI 2020-04-16 2020-04-16 Outpatient E LISA GARCIA [facility] [id number] [facility] 05:54:00 06:32:00 [facility] Results Test Description Test Time Test Comments Results Result Comments Source HEMATOLOGY 2022-05-22 07:17:00 Test Item Value Reference Range Interpretation Comme nts Neutrophils # (test code = Neutrophils #) 5.2 1.5-8.1 [facility]79[facility]14 07:17:00 Test Item Value Reference Range Interpretation Comments Lymphocytes # (test code = Lymphocytes 0.6 1.0-5.5 #) [facility]qhmxfbJXSHZTBGER7953-10-54 07:17:00 Test Item Value Reference Range Interpretation Comments Monocytes # (test code 0.3 See_Comment [Aut omated message] The = Monocytes #) system which generated this result tra nsmitted reference range : <=0.8. The reference r catherine was not used to int erpret this result as normal/abnormal . [facility] HospitalBxgjsfcXLEGJSHRIJ5053-95-69 07:17:00 Test Item Value Reference Range Interpretation Comments WBC (test code = WBC) 6.1 3.7-10.4 [facility] HospitalIniysbrBKRMVUEPSC1896-78-21 07:17:00 Test Item Value Reference Range Interpretation Comments RBC (test code = RBC) 4.69 4.70-6.10 [facility]QvgtcntEXGDQVWUSQ1247-15-46 07:17:00 Test Item Value Reference Range Interpretation Comments Hgb (test code = Hgb) 13.5 14.0-18.0 [facility] HospitalLvuvvwrLABHRACKEF7119-08-10 07:17:00 Test Item Value Reference Range Interpretation Comments Hct (test code = Hct) 40.7 42.0-54.0 [facility] HospitalUqjendkSFXNZQWVUN3836-34-77 07:17:00 Test Item Value Reference Range Interpretation Comments MCV (test code = MCV) 86.8 80.0-94.0 [facility] HospitalGtwcaldMGFEJFQADA1001-45-02 07:17:00 Test Item Value Reference Range Interpretation Comments MCH (test code = MCH) 28.7 pg 27.0-31.0 [facility] HospitalHcehtfkIDCEXNSROT5558-86-43 07:17:00 Test Item Value Reference Range Interpretation Comments MCHC (test code = MCHC) 33.1 32.0-36.0 [facility] HospitalDazfxusTPJIKEDOJF7080-84-04 07:17:00 Test Item Value Reference Range Interpretation Comments RDW (test code = RDW) 13.9 11.5-14.5 [facility] HospitalLnggrvlBPCIWSMUNS4914-84-34 07:17:00 Test Item Value Reference Range Interpretation Comments Platelet (test code = Platelet) 207 133-450 [facility] HospitalMriawubJPMILZDBEY4540-44-14 07:17:00 Test Item Value Reference Range Interpretation Comments MPV (test code = MPV) 8.7 7.4-10.4 [facility]YohqrybKUASDSIZS3584-08-54 07:17:00 Test Item Value Reference Range Interpretation Comments Glucose Lvl (test code = Glucose Lvl) 106 70-99 [facility] HospitalGgmdnzcNHRWPDFYA2197-53-28 07:17:00 Test Item Value Reference Range Interpretation Comments BUN (test code = BUN) 8 7-22 [facility] HospitalGjmfixkKQDTSMOGG1518-89-63 07:17:00 Test Item Value Reference Range Interpretation Comments Creatinine Lvl (test code = Creatinine 1.05 0.50-1.40 Lvl) [facility] HospitalRkgohqtLQRXMODTY9617-23-77 07:17:00 Test Item Value Reference Range Interpretation Comments Sodium Lvl (test code = Sodium Lvl) 135 135-145 [facility] HospitalBknnyqvWYANYNPZB2612-29-98 07:17:00 Test Item Value Reference Range Interpretation Comments Potassium Lvl (test code = Potassium 4.3 3.5-5.1 Lvl) [facility] HospitalXzmenzdZASYPYFYB7317-71-04 07:17:00 Test Item Value Reference Range Interpretation Comments Chloride Lvl (test code = Chloride Lvl) 102 95-109 [facility] HospitalIikjoecFILNGRDYS5254-11-69 07:17:00 Test Item Value Reference Range Interpretation Comments CO2 (test code = CO2) 23 24-32 [facility] HospitalSoomdteWZDFPCPWP8266-36-31 07:17:00 Test Item Value Reference Range Interpretation Comments Calcium Lvl (test code = Calcium Lvl) 9.1 8.5-10.5 [facility] HospitalEwvgsigPWZTVQLKS3926-22-07 07:17:00 Test Item Value Reference Range Interpretation Comments AGAP (test code = AGAP) 14.3 10.0-20.0 [facility] HospitalBoajblmHQKEKEDAS1313-96-41 07:17:00 Test Item Value Reference Range Interpretation Comments eGFR (test code = eGFR) 100 [facility] HospitalZfwipwsQMFLWGIUZE8858-95-06 07:17:00 Test Item Value Reference Range Interpretation Comments Segs (test code = Segs) 86.3 45.0-75.0 [facility] HospitalEydsyjjPFBUQEHXWU5004-26-55 07:17:00 Test Item Value Reference Range Interpretation Comments Lymphocytes (test code = Lymphocytes) 9.2 20.0-40.0 [facility] HospitalBigywnjXMHGKWGZKJ3212-19-24 07:17:00 Test Item Value Reference Range Interpretation Comments Monocytes (test code = Monocytes) 4.3 2.0-12.0 [facility] HospitalFntfeyyPNLPJNZQET3615-40-19 07:17:00 Test Item Value Reference Range Interpretation Comments Basophils (test code = 0.2 See_Comment [Aut omated message] The Basophils) system which ge nerated this result tra nsmitted reference range : <=1.0. The reference r catherine was not used to int erpret this result as normal/abnormal . [place] [id number] 22:18:10 Test Item Value Reference Range Interpretation [...] Arch bars are in place.IMPRESSION:Internal reduction [facility]OTDUBD2889-73-81 19:17:41 Test Item Value Reference Range Interpretation Comments RADRPT (test code EXAM: CT FACIAL BONES = RADRPT) WITHOUT CONTRASTDATE: 05/17/2022 12:26INDICATION: - Mandibular FxCOMPARISON: CT facial bones from earlier the same dateTECHNIQUE: Volumetric CT of the facial bones is acquired without contrast. Axial, coronal and sagittal images are provided. IV contrast: None.DLP: Refer to CT protocol formUT SECTION: ERFINDINGS: Food Concession Manager: NoncontributoryBones: Similar appearance of a minimally displaced [...] angle fracture and right parasymphyseal mandibular fracture. [facility] HospitalXzmmkraRBUQKVDICF9701-83-97 17:49:00 Test Item Value Reference Range Interpretation Comments Monocytes # (test code 0.7 See_Comment [Aut omated message] The = Monocytes #) system which generated this result tra nsmitted reference range : <=0.8. The reference r catherine was not used to int erpret this result as normal/abnormal . [facility] HospitalUzlciojIBIDVSDPMD2988-71-03 17:49:00 Test Item Value Reference Range Interpretation Comments WBC X 10x3 (test code = WBC X 10x3) 7.0 3.7-10.4 [facility] HospitalKayymiuGYWZUGXBMH7356-39-03 17:49:00 Test Item Value Reference Range Interpretation Comments RBC X 10x6 (test code = RBC X 10x6) 5.09 4.70-6.10 [place] 592882-10-27 17:49:00 Test Item Value Reference Range Interpretation Comments Hgb (test code = Hgb) 14.6 14.0-18.0 [place] 592882-10-27 17:49:00 Test Item Value Reference Range Interpretation Comments Hct (test code = Hct) 44.3 42.0-54.0 [place] 592882-10-27 17:49:00 Test Item Value Reference Range Interpretation Comments MCV (test code = MCV) 87.1 80.0-94.0 [place] 592882-10-27 17:49:00 Test Item Value Reference Range Interpretation Comments MCH (test code = MCH) 28.6 pg 27.0-31.0 [place] 592882-10-27 17:49:00 Test Item Value Reference Range Interpretation Comments MCHC (test code = MCHC) 32.9 32.0-36.0 [place] 592882-10-27 17:49:00 Test Item Value Reference Range Interpretation Comments RDW (test code = RDW) 14.2 11.5-14.5 [place] 592882-10-27 17:49:00 Test Item Value Reference Range Interpretation Comments Platelet (test code = Platelet) 197 133-450 [facility] HospitalTwwznhvVTNVXMDWVX1457-92-75 17:49:00 Test Item Value Reference Range Interpretation Comments MPV (test code = MPV) 8.2 7.4-10.4 [place] [address]-10-27 17:49:00 Test Item Value Reference Range Interpretation Comments Segs (test code = Segs) 64.6 45.0-75.0 [place] [address]-10-27 17:49:00 Test Item Value Reference Range Interpretation Comments Lymphocytes (test code = Lymphocytes) 23.9 20.0-40.0 [place] 592882-10-27 17:49:00 Test Item Value Reference Range Interpretation Comments Monocytes (test code = Monocytes) 10.4 2.0-12.0 [place] [address]-10-27 17:49:00 Test Item Value Reference Range Interpretation Comments Eosinophils (test code = 0.5 See_Comment [A utomated message] The Eosinophils) system which ge nerated this result tra nsmitted reference range : <=4.0. The reference r catherine was not used to int erpret this result as normal/abnormal . [place] 592882-10-27 17:49:00 Test Item Value Reference Range Interpretation Comments Basophils (test code = 0.6 See_Comment [Aut omated message] The Basophils) system which ge nerated this result tra nsmitted reference range : <=1.0. The reference r catherine was not used to int erpret this result as normal/abnormal . [place] 592882-10-27 17:49:00 Test Item Value Reference Range Interpretation Comments Neutrophils # (test code = Neutrophils 4.5 1.5-8.1 #) [place] [address]-10-27 17:49:00 Test Item Value Reference Range Interpretation Comments Lymphocytes # (test code = Lymphocytes 1.7 1.0-5.5 #) [place] [address]-10-27 17:49:00 Test Item Value Reference Range Interpretation Comments Monocytes # (test code 0.7 See_Comment [Aut omated message] The = Monocytes #) system which generated this result tra nsmitted reference range : <=0.8. The reference r catherine was not used to int erpret this result as normal/abnormal . [place] [address]-10-27 17:49:00 Test Item Value Reference Range Interpretation Comments WBC X 10x3 (test code = WBC X 10x3) 7.0 3.7-10.4 [place] [address]-10-27 17:49:00 Test Item Value Reference Range Interpretation Comments RBC X 10x6 (test code = RBC X 10x6) 5.09 4.70-6.10 [place] [address]-10-27 17:49:00 Test Item Value Reference Range Interpretation Comments Hgb (test code = Hgb) 14.6 14.0-18.0 [place] [address]-10-27 17:49:00 Test Item Value Reference Range Interpretation Comments Hct (test code = Hct) 44.3 42.0-54.0 [facility] HospitalUfgyjmlTHOFDQJBZS1376-63-82 17:49:00 Test Item Value Reference Range Interpretation Comments MCV (test code = MCV) 87.1 80.0-94.0 [facility] HospitalKhcqhcdZBHJHUDRQC1223-38-50 17:49:00 Test Item Value Reference Range Interpretation Comments MCH (test code = MCH) 28.6 pg 27.0-31.0 [facility] HospitalPevdmlmORYRZOGDFQ1517-20-88 17:49:00 Test Item Value Reference Range Interpretation Comments MCHC (test code = MCHC) 32.9 32.0-36.0 [facility] HospitalLtdkbrvXFPXBVSFDL6829-28-03 17:49:00 Test Item Value Reference Range Interpretation Comments RDW (test code = RDW) 14.2 11.5-14.5 [facility] HospitalYdcpnjfMLQWPDIJBG9660-06-08 17:49:00 Test Item Value Reference Range Interpretation Comments Platelet (test code = Platelet) 197 133-450 [facility] HospitalUamkoomFGIWXKNMWZ2654-35-80 17:49:00 Test Item Value Reference Range Interpretation Comments MPV (test code = MPV) 8.2 7.4-10.4 [facility]NodeahmZFTDNOLQYJ4315-12-13 17:49:00 Test Item Value Reference Range Interpretation Comments Coronavirus (COVID-19) Not Detected DUARTE (test code = (05/17/22 12:49 PM) Coronavirus (COVID-19) DUARTE) [facility] HospitalKsgeoyoORMWGTWDJJ3503-64-61 17:49:00 Test Item Value Reference Range Interpretation Comments Coronavirus (COVID-19) Not Detected DUARTE (test code = (05/17/22 12:49 PM) Coronavirus (COVID-19) DUARTE) [facility] [id number] 17:49:00 Test Item Value Reference Range Interpretation Comments ABO/Rh (test code = ABO/Rh) B POS [facility] [employer] KIKENSQ7032-65-41 17:49:00 Test Item Value Reference Range Interpretation Comments Antibody Scrn (test Negative (05/17/22 code = Antibody Scrn) 12:49 PM) [facility] SPTSHDH1206-08-59 17:49:00 Test Item Value Reference Range Interpretation Comments ABO/Rh (test code = ABO/Rh) B POS [facility] [employer] [id number] 17:49:00 Test Item Value Reference Range Interpretation Comments Antibody Scrn (test Negative (05/17/22 code = Antibody Scrn) 12:49 PM) [place] [address]-10-27 17:49:00 Test Item Value Reference Range Interpretation Comments Glucose Lvl (test code = Glucose Lvl) 106 70-99 [place] 138252-10-27 17:49:00 Test Item Value Reference Range Interpretation Comments BUN (test code = BUN) 02-09 [place] 138252-10-27 17:49:00 Test Item Value Reference Range Interpretation Comments Creatinine Lvl (test code = Creatinine 1.04 0.50-1.40 Lvl) [place] 138252-10-27 17:49:00 Test Item Value Reference Range Interpretation Comments Sodium Lvl (test code = Sodium Lvl) 139 135-145 [place] 138252-10-27 17:49:00 Test Item Value Reference Range Interpretation Comments Potassium Lvl (test code = Potassium 3.8 3.5-5.1 Lvl) [place] 138252-10-27 17:49:00 Test Item Value Reference Range Interpretation Comments Chloride Lvl (test code = Chloride Lvl) 106 95-109 [place] 138252-10-27 17:49:00 Test Item Value Reference Range Interpretation Comments CO2 (test code = CO2) 29 -32 [place] 138252-10-27 17:49:00 Test Item Value Reference Range Interpretation Comments Calcium Lvl (test code = Calcium Lvl) 9.0 8.5-10.5 [place] 138252-10-27 17:49:00 Test Item Value Reference Range Interpretation Comments AGAP (test code = AGAP) 7.8 10.0-20.0 [place] 138252-10-27 17:49:00 Test Item Value Reference Range Interpretation Comments eGFR (test code = eGFR) 102 [facility] HospitalRxzdujcUCRIBPBFZ8616-09-81 17:49:00 Test Item Value Reference Range Interpretation Comments Glucose Lvl (test code = Glucose Lvl) 106 70-99 [place] 722532-10-27 17:49:00 Test Item Value Reference Range Interpretation Comments BUN (test code = BUN) 11 02-09 [place] 722532-10-27 17:49:00 Test Item Value Reference Range Interpretation Comments Creatinine Lvl (test code = Creatinine 1.04 0.50-1.40 Lvl) [facility] HospitalIxlxzyvVLBXXMGUA9180-86-79 17:49:00 Test Item Value Reference Range Interpretation Comments Sodium Lvl (test code = Sodium Lvl) 139 135-145 [facility] HospitalSgdaxgoQYFERUVGF8073-12-23 17:49:00 Test Item Value Reference Range Interpretation Comments Potassium Lvl (test code = Potassium 3.8 3.5-5.1 Lvl) [facility] HospitalWcjyhsiMPQRKBCLB7309-21-65 17:49:00 Test Item Value Reference Range Interpretation Comments Chloride Lvl (test code = Chloride Lvl) 106 95-109 [place] 722532-10-27 17:49:00 Test Item Value Reference Range Interpretation Comments CO2 (test code = CO2) 29 24-32 [facility] HospitalIppzmooCVTRQKHOO0831-49-18 17:49:00 Test Item Value Reference Range Interpretation Comments Calcium Lvl (test code = Calcium Lvl) 9.0 8.5-10.5 [facility] HospitalGzjsromIVMCTWEFI8052-94-92 17:49:00 Test Item Value Reference Range Interpretation Comments AGAP (test code = AGAP) 7.8 10.0-20.0 [place] [address]-10-27 17:49:00 Test Item Value Reference Range Interpretation Comments eGFR (test code = eGFR) 102 [place] 592882-10-27 17:49:00 Test Item Value Reference Range Interpretation Comments Segs (test code = Segs) 64.6 45.0-75.0 [place] 592882-10-27 17:49:00 Test Item Value Reference Range Interpretation Comments Lymphocytes (test code = Lymphocytes) 23.9 20.0-40.0 [place] [address]-10-27 17:49:00 Test Item Value Reference Range Interpretation Comments Monocytes (test code = Monocytes) 10.4 2.0-12.0 [place] 592882-10-27 17:49:00 Test Item Value Reference Range Interpretation Comments Eosinophils (test code = 0.5 See_Comment [A utomated message] The Eosinophils) system which ge nerated this result tra nsmitted reference range : <=4.0. The reference r catherine was not used to int erpret this result as normal/abnormal . [id number]:49:00 Test Item Value Reference Range Interpretation Comments Basophils (test code = 0.6 See_Comment [Aut omated message] The Basophils) system which ge nerated this result tra nsmitted reference range : <=1.0. The reference r catherine was not used to int erpret this result as normal/abnormal . [place] [id number] 17:49:00 Test Item Value Reference Range Interpretation Comments Neutrophils # (test code = Neutrophils 4.5 1.5-8.1 #) [id number] 17:49:00 Test Item Value Reference Range Interpretation Comments Lymphocytes # (test code = Lymphocytes 1.7 1.0-5.5 #) [place] [id number] 15:23:27 Test Item Value Reference Range Interpretation [...] also presented for interpretation.IV contrast: Refer to MAR/3d technologist documentationDLP: Refer to CT protocol formFINDINGS:NECK [...] the distal internal carotid artery {NASCET criteria}.) [place] [id number] 14:41:39 Test Item Value Reference Range Interpretation [...] CT scan for acute intracranial posttraumatic injuries. [id number] 14:04:31 Test Item Value Reference Range Interpretation Comments RADRPT (test code = EXAM: CT FACIAL BONES RADRPT) OUTSIDE CONSULTATIONDATE: 05/17/2022 7:54INDICATION: Second interpretation of outside CT performed on trauma transfer patient.COMPARISON: None.TECHNIQUE: Multiplanar images of the facial bones without contrast. Axial, sagittal and coronal images are provided. OUTSIDE REPORT: from [facility] DISCUSSION: A minimally displaced right [...] initial interpretation obtained from the referring facility. [id number] 13:34:35 Test Item Value Reference Range Interpretation [...] tissue abnormality is identified.IMPRESSION:1. No acute abnormality. [facility]
[2022-09-25 10:36] VITALS: BP 129/81; TEMP 97.9; O2SAT 100
--- NOTE | 2022-10-12 14:12 | EDPHYS ---
Physician Documentation [facility] Name: Paulette Lozoya Age: 26 yrs Sex: Male : 1995 Arrival Date: 09/25/2022 Time: 10:12 Bed IW3 Private MD: ED Physician Dom Colón HPI: 09/25 10:28 This 26 yrs old Black Male presents to ER via Ambulatory with complaints of Needs Work ms3 Release. 10:28 26-year-old male with past medical history of asthma and ADHD presents emergency ms3 department for work release. Patient states he had an allergic reaction after eating coconut strep yesterday and his face became swollen. Patient states he does not have symptoms at this time.. Historical: - Allergies: 10:21 No Known Allergies; ld1 - PMHx: 10:21 Asthma; adhd; ld1 - PSHx: 10:21 knee surgery; ld1 - Immunization history:: Adult Immunizations up to date, Client reports receiving the 2nd dose of the Covid vaccine. - Social history:: Smoking status: Patient denies any tobacco usage or history of. Patient/guardian denies using alcohol. ROS: 10:28 Constitutional: Negative for fever, and chills. Neck: Negative for injury, pain, and ms3 swelling, Cardiovascular: Negative for chest pain, and palpitations. Respiratory: Negative for shortness of breath, cough, wheezing, and pleuritic chest pain, Abdomen/GI: Negative for abdominal pain, nausea, vomiting, diarrhea, and constipation, MS/Extremity: Negative for injury and deformity, Skin: Negative for injury, rash, and discoloration. 10:28 All other systems are negative. Exam: 10:28 Constitutional: This is a well developed, well nourished patient who is awake, alert, ms3 and in no acute distress. Head/Face: Normocephalic, atraumatic. Chest/axilla: Normal chest wall appearance and motion. Nontender with no deformity. Cardiovascular: Regular rate and rhythm with a normal S1 and S2. No gallops, murmurs, or rubs. Normal PMI, no JVD. No pulse deficits. Respiratory: Lungs have equal breath sounds bilaterally, clear to auscultation and percussion. No rales, rhonchi or wheezes noted. No increased work of breathing, no retractions or nasal flaring. Abdomen/GI: Soft, non-tender, with normal bowel sounds. No distension or tympany. No guarding or rebound. No evidence of tenderness throughout. Skin: Warm, dry with normal turgor. Normal color with no rashes, no lesions, and no evidence of cellulitis. MS/ Extremity: Pulses equal, no cyanosis. Neurovascular intact. Full, normal range of motion. Vital Signs: 10:20 BP 129 / 81; Pulse 79; Resp 18; Temp 97.9(TE); Pulse Ox 100% on R/A; Weight 68.04 kg; ld1 Height 5 ft. 9 in. ; Pain 0/10; 10:20 Body Mass Index 22.15 (68.04 kg, 175.26 cm) ld1 10:20 Pain Scale: Adult ld1 MDM: 10:27 Patient medically screened. ms3 10:28 Differential Diagnosis Allergic reaction. Data reviewed: vital signs, nurses notes, and ms3 as a result, I will discharge patient. Counseling: I had a detailed discussion with the patient and/or guardian regarding: the historical points, exam findings, and any diagnostic results supporting the discharge/admit diagnosis, the need for outpatient follow up, to return to the emergency department if symptoms worsen or persist or if there are any questions or concerns that arise at home. ED course: Discussed physical exam findings with patient. Patient to follow-up Dr. Lancaster in 2 to 3 days. Patient understands and agrees with plan. All questions were answered. Return precautions discussed include worsening symptoms, or any other concerns. Administered Medications: No medications were administered Disposition: 16:23 Chart complete. ms3 Disposition Summary: 09/25/22 10:27 Discharge Ordered Location: Home ms3 Condition: Stable ms3 Diagnosis - Allergic reaction ms3 Followup: ms3 - With: Mukesh Lancaster MD - When: 2 - 3 days - Reason: Recheck today's complaints Discharge Instructions: - Discharge Summary Sheet ms3 - Food Allergy ms3 - Form - Return To Work ms3 Forms: - Medication Reconciliation Form ms3 - Thank You Letter ms3 - Antibiotic Education ms3 - Prescription Opioid Use ms3 - Work release form ld1 Signatures: Dom Colón DO DO ms3 Melody Armstrong RN RN ld1
--- NOTE | 2022-10-12 14:12 | ER ---
Nurse's Notes [facility] Name: Paulette Lozoya Age: 26 yrs Sex: Male : 1995 Arrival Date: 09/25/2022 Time: 10:12 Bed IW3 Private MD: Diagnosis: Allergic reaction Presentation: 09/25 10:20 Chief complaint: Patient states: Pt ate coconut shrimp yesterday - took Benadryl at ld1 home. Work wont let patient come back to work without note. Coronavirus screen: At this time, the client does not indicate any symptoms associated with coronavirus-19. Ebola Screen: No symptoms or risks identified at this time. Initial Sepsis Screen: Does the patient meet any 2 criteria? No. Patient's initial sepsis screen is negative. Does the patient have a suspected source of infection? No. Patient's initial sepsis screen is negative. Risk Assessment: Do you want to hurt yourself or someone else? Patient reports no desire to harm self or others. Onset of symptoms was September 25, 2022. 10:20 Method Of Arrival: Ambulatory ld1 10:20 Acuity: BLAKE 5 ld1 Triage Assessment: 10:21 General: Appears in no apparent distress. comfortable, Behavior is calm, cooperative, ld1 appropriate for age. Pain: Denies pain. EENT: No signs and/or symptoms were reported regarding the EENT system. Neuro: Level of Consciousness is awake, alert, obeys commands, Oriented to person, place, time, situation. Cardiovascular: Capillary refill < 3 seconds Patient's skin is warm and dry. Respiratory: Airway is patent Respiratory effort is even, unlabored. GI: Abdomen is flat, non-distended. : No signs and/or symptoms were reported regarding the genitourinary system. Derm: No signs and/or symptoms reported regarding the dermatologic system. Musculoskeletal: No signs and/or symptoms reported regarding the musculoskeletal system. Historical: - Allergies: 10:21 No Known Allergies; ld1 - PMHx: 10:21 Asthma; adhd; ld1 - PSHx: 10:21 knee surgery; ld1 - Immunization history:: Adult Immunizations up to date, Client reports receiving the 2nd dose of the Covid vaccine. - Social history:: Smoking status: Patient denies any tobacco usage or history of. Patient/guardian denies using alcohol. Vital Signs: 10:20 BP 129 / 81; Pulse 79; Resp 18; Temp 97.9(TE); Pulse Ox 100% on R/A; Weight 68.04 kg; ld1 Height 5 ft. 9 in. ; Pain 0/10; 10:20 Body Mass Index 22.15 (68.04 kg, 175.26 cm) ld1 10:20 Pain Scale: Adult ld1 ED Course: 10:12 Patient arrived in ED. rg4 10:15 Jose Alfredo Canela PA is PHCP. jmm 10:15 Carrington Feng MD is Attending Physician. jmm 10:21 Triage completed. ld1 10:21 Arm band placed on right wrist. ld1 10:24 Attending Physician role handed off by Carrington Feng MD ms3 10:24 Dom Colón DO is Attending Physician. ms3 10:26 Mukesh Lancaster MD is Referral Physician. ms3 Administered Medications: No medications were administered Outcome: 10:27 Discharge ordered by . ms3 10:31 Patient left the ED. ld1 Signatures: Jose Alfredo Canela PA PA jmm Garcia, Rubi rg4 Dom Colón DO DO ms3 Melody Armstrong, RN RN ld1
== END 2022-09-25 10:31 | disposition home or self-care (01) ==
LOC: ER 10:08
DX: Z02.79 Encounter for issue of other medical certificate (principal)
CPT/HCPCS: 99281

== ENCOUNTER 2022-10-04 09:24 | Emergency (ER) | payer SELFPAY ==
--- OUTSIDE RECORDS SUMMARY | 2022-10-04 09:28 | XMS REPORT | Continuity of Care Document ---
:1995 Author Organization [facility] t Address [address] [facility]. [address] [place] [address] Care Team Providers Name Role Phone NILESH CABA Attending Clinician Unavailable LEANA MATTHEW Attending Clinician Unavailable LEANA MATTHEW Attending Clinician Unavailable EMI GRANDA Attending Clinician Unavailable DR LISA GARCIA Attending Clinician Unavailable NIKITA GREEN Admitting Clinician Unavailable DR LISA GARCIA Admitting Clinician Unavailable Payers Payer Name Policy Type Policy Number Effective Date Expiration Date S ource [employer] [id number] 2022 COMPENSATION 00:00:00 GENERIC INTERFACED [id number] 2021 [facility] PLAN 00:00:00 Problems Condition Condition Condition Status Onset Resolution Last Treating Co mments Source Name Details Category Date Date Treatment Clinician Date FOLLOW UP FOLLOW UP Diagnosis Active 2021-072022-06-22 Memoria Active - 10:41:00 l 05/24/2022 00:00: Iban blair [address] NA NA Active Diagnosis Active 2021-072022-05-24 Memoria 05/18/2022 0-28 06:12:00 shelbie [facility] 00:00: [address] MANDIBULAR Diagnosis Active 2021-072022-05-24 Memoria FRACTURE MANDIBULAR 0- 06:50:00 l FRACTURE 00:00: [facility] 00 05/17/2022 [facility] Asthma Asthma Problem Active 2012-072022-05-21 Cortez jannie (disorder) (disorder) 0-10 08:29:53 l Active 00:00: Buster 04/30/2013 00 Problem 05/21/2022 Data migrated from [email or web address] on 12/18/14. [facility] Fracture Fracture Problem Active 2022-05-25 Memoria of of 00:29:11 l mandible mandible Iban n (disorder) (disorder) Active Problem 05/25/2022 [facility] Allergic Allergic Problem Resolve 2012-072022-05-21 2022-05-21 Memoria rhinitis rhinitis d 0-10 08:29:53 08:29:53 l (disorder) (disorder) 00:00: He rmann Resolved 00 04/30/2013 Problem 05/21/2022 Data migrated from [email or web address] on 12/18/14. [facility] Hypertensi Hypertens Problem Resolve 2012-072022-05-21 2022-05-21 Memoria ve episode yarely d 0-10 08:29:53 08:29:53 l (disorder) episode 00:00: Remedios nn (disorder) 00 Resolved 04/30/2013 Problem 05/21/2022 Data migrated from [email or web address] on 12/18/14. [facility] Allergies, Adverse Reactions, Alerts Allergy Allergy Status Severity Reaction(s) Onset Inactive Treating Comm ents Source Name Type Date Date Clinician No Known DA Active [facility] Social History Smoking Status Start Date Stop [...] swallow, # 480 mL, 0 Refill(s), Pharmacy: [id number], 175.26, cm, 05/21/22 19:34:00 CDT, Height, 69.091, kg, 05/21/22 19:34:00 CDT, Weight Tylenol 325 2021-07 Yes 650 mg = 2 Memoria mg oral 1-01 tab, PO, l tablet 13:11: Q4H, PRN Buster 00 Pain, X 10 day, # 120 tab, 0 Refill(s), Pharmacy: [facility] #[id number], 175.26, cm, 05/21/22 19:34:00 CDT, Height, 69.091, kg, 05/21/22 19:34:00 CDT, Weight tramadol 50 2021-07 Yes 50 mg = 1 M emoria mg oral 1-01 tab, PO, l tablet 13:10: Q4H, PRN Ubster 00 Pain Score 4-6, # 18 tab, 0 Refill(s), Pharmacy: [id number], 175.26, cm, 05/21/22 19:34:00 CDT, Height, 69.091, kg, 05/21/22 19:34:00 CDT, Weight Augmentin 2021-07 Yes 875 mg = 1 Me moria 875 mg oral 1-01 tab, PO, l tablet 13:09: BID, X 10 Iban n 00 day, # 20 tab, 0 Refill(s), Pharmacy: [id number], 175.26, cm, 05/21/22 19:34:00 CDT, Height, 69.091, kg, 05/21/22 19:34:00 CDT, Weight Motrin 600 2021-07 Yes 600 mg = 1 M emoria mg oral 1-01 tab, PO, l tablet 13:09: Q6H, PRN Buster 00 Pain, take with food. PRN Pain/Fever , # 30 tab, 0 Refill(s), Pharmacy: [id number], 175.26, cm, 05/21/22 19:34:00 CDT, Height, 69.091, kg, 05/21/22 19:34:00 CDT, Weight Motrin 600 2021-07 Yes 600 mg = 1 M emoria mg oral 0-27 tab, PO, l tablet 18:02: Q6H, PRN [place] 00 Pain, take with food. PRN Pain/Fever , # 30 tab, 0 Refill(s), Pharmacy: [facility] #[id number] Tylenol 2021-07 Yes 1,000 mg = [place] jannie Extra 0-27 2 tab, PO, l Strength 18:02: TID, PRN Remedios nn 500 mg oral 00 Pain, X 10 tablet day, # 30 tab, 0 Refill(s), Pharmacy: [facility] #[id number] tramadol 50 2021-07 Yes 50 mg = 1 M emoria mg oral 0-27 tab, PO, l tablet 18:02: BID, PRN [place] 00 Severe Pain At Night, # 10 tab, 0 Refill(s), Pharmacy: [facility] #[id number] Augmentin 2021-07 Yes 875 mg = 1 Me moria 875 mg oral 0-27 tab, PO, l tablet 18:02: BID, X 10 Iban n 00 day, # 20 tab, 0 Refill(s), Pharmacy: [facility] #[id number] fentaNYL 2021-07 No 50 Memoria 0-27 [...] Memoria 0-27 (Same as: l 12:04: Zofran) [place] 00 MEDICATION WASTE Product Size: 4 mg [...] diphtheria/pertussis, 2008-03-05 Completed Mem orial acel/tetanus 05:00:00 [place] adult<sup>1</sup> Hx meningococcal 2008-03-05 Completed [facility] vaccine<sup>4</sup> 05:00:00 Remedios nn Hx hepatitis A 2008-03-05 Completed [facility] vaccine<sup>3</sup> 05:00:00 Remedios nn varicella virus 2008-03-05 Completed [facility] vaccine<sup>5</sup> 05:00:00 Remedios nn Hx poliovirus 1996-06-10 Completed [facility] vaccine-unspecified<s 06:00:00 Her padron up>6</sup> diphtheria/pertussis, 1996-06-10 Completed Mem orial acel/tetanus 06:00:00 [place] ped<sup>8</sup> Hx haemophilus b 1996-06-10 Completed [facility] vaccine<sup>10</sup> 06:00:00 Susanne aimee Hx poliovirus 1996-04-17 Completed [facility] vaccine-unspecified<s 05:00:00 Her padron up>7</sup> diphtheria/pertussis, 1996-04-17 Completed Mem orial acel/tetanus 05:00:00 [place] ped<sup>9</sup> Hx haemophilus b 1996-04-17 Completed [facility] vaccine<sup>11</sup> 05:00:00 Susanne aimee Hx hepatitis B 1995 Completed [facility] vaccine<sup>12</sup> 05:00:00 Susanne aimee Vital Signs Vital Name Observation Time Observation Value Comments Source Height 2020-04-16 06:00:00 175.26 CM Weight 2020-04-16 06:00:00 70.3 KG Heart Rate 2022-05-22 17:04:08 [facility] [place] Temperature Oral (F) 2022-05-22 17:04:01 97.6 F [facility] [place] Systolic (mm Hg) 2022-05-22 17:03:56 Cortez rial [place] Diastolic (mm Hg) 2022-05-22 17:03:56 Mem orial [place] Height 2022-05-22 00:34:00 5 [ft_i] [facility] [place] Weight 2022-05-22 00:34:00 [facility] [place] BMI Calculated 2022-05-22 00:34:00 Memori al [place] Temperature Oral (F) 2022-05-17 17:52:00 98.9 F [facility] [place] Heart Rate 2022-05-17 17:52:00 [facility] [place] Systolic (mm Hg) 2022-05-17 17:52:00 Cortez rial [place] Diastolic (mm Hg) 2022-05-17 17:52:00 Mem orial [place] Respitory Rate 2022-05-17 17:52:00 Memori al [place] Systolic (mm Hg) 2022-05-17 11:05:00 Cortez rial [place] Diastolic (mm Hg) 2022-05-17 11:05:00 Mem orial [place] Heart Rate 2022-05-17 11:05:00 [facility] [place] Respitory Rate 2022-05-17 11:05:00 Memori al [place] Temperature Oral (F) 2022-05-17 11:05:00 98.6 F [facility] [place] Procedures Procedure Date / Time Performed Performing Clinician [facility] e Procedure on knee [facility] Remedios nn Encounters Start End Encounter Admission Attending Care Care Encounter Source Date/Time Date/Time Type Type Clinicians Facility Department ID 2022-08-21 Outpatient [facility] [id number] [place] 13:01:05 [id number] [facility] 2022-08-16 Outpatient [facility] [id number] [place] 18:19:14 [id number] [facility] 2022-06-11 Outpatient [facility] [id number] [place] 15:31:02 [id number] [facility] 2022-07-26 2022-08-24 Outpatient GERTRUDIS [facility] [id number] [facility] 09:50:00 23:59:00 NILESH 2022-05-31 2022-06-29 Outpatient GERTRUDIS [facility] [id number] [facility] 09:54:00 23:59:00 NILESH 2022-05-21 2022-05-22 Observatio nullFlavo [facility] [id number] Memoria 23:43:00 21:54:00 n r [place] 00 l [facility] 2022-05-21 2022-05-22 Outpatient WOERNILDA, [facility] [id number] [facility] 18:43:00 16:54:00 [facility] 2022-05-21 2022-05-21 Outpatient WOERUYEN, [facility] [id number] 07:30:00 07:30:00 [facility] 2022-05-17 2022-05-17 Emergency nullFlavo [facility] [id number] Memoria 11:04:00 18:04:00 r [place] 00 l [facility] 2022-05-17 2022-05-17 Emergency E GRANDA, [facility] [id number] [facility] 04:47:00 13:04:00 EMI 2020-04-16 2020-04-16 Outpatient E LISA GARCIA [facility] [id number] [facility] 05:54:00 06:32:00 [facility] Results Test Description Test Time Test Comments Results Result Comments Source CHEMISTRY 2022-05-22 07:17:00 Test Item Value Reference Range Interpretation Comme nts AGAP (test code = AGAP) 14.3 10.0-20.0 [facility]TF1160[facility]34-65 07:17:00 Test Item Value Reference Range Interpretation Comments eGFR (test code = eGFR) 100 [facility]9767[facility]70-83 07:17:00 Test Item Value Reference Range Interpretation Comments Segs (test code = Segs) 86.3 45.0-75.0 [facility]vunwdyWQFQQQIAMU4670-34-38 07:17:00 Test Item Value Reference Range Interpretation Comments Lymphocytes (test code = Lymphocytes) 9.2 20.0-40.0 [facility]KqkqoqcAPZABVVDGT5556-39-74 07:17:00 Test Item Value Reference Range Interpretation Comments Monocytes (test code = Monocytes) 4.3 2.0-12.0 [facility] HospitalFkqfsmdLTUFBETGQL1621-91-70 07:17:00 Test Item Value Reference Range Interpretation Comments Basophils (test code = 0.2 See_Comment [Aut omated message] The Basophils) system which ge nerated this result tra nsmitted reference range : <=1.0. The reference r catherine was not used to int erpret this result as normal/abnormal . [facility] PasoGmflozbBVJWOJRATA2919-80-57 07:17:00 Test Item Value Reference Range Interpretation Comments Neutrophils # (test code = Neutrophils 5.2 1.5-8.1 #) [place] 104072-11-01 07:17:00 Test Item Value Reference Range Interpretation Comments Lymphocytes # (test code = Lymphocytes 0.6 1.0-5.5 #) [place] [address]-11-01 07:17:00 Test Item Value Reference Range Interpretation Comments Monocytes # (test code 0.3 See_Comment [Aut omated message] The = Monocytes #) system which generated this result tra nsmitted reference range : <=0.8. The reference r catherine was not used to int erpret this result as normal/abnormal . [place] 104072-11-01 07:17:00 Test Item Value Reference Range Interpretation Comments WBC (test code = WBC) 6.1 3.7-10.4 [place] [address]-11-01 07:17:00 Test Item Value Reference Range Interpretation Comments RBC (test code = RBC) 4.69 4.70-6.10 [place] 104072-11-01 07:17:00 Test Item Value Reference Range Interpretation Comments Hgb (test code = Hgb) 13.5 14.0-18.0 [place] 104072-11-01 07:17:00 Test Item Value Reference Range Interpretation Comments Hct (test code = Hct) 40.7 42.0-54.0 [place] 104072-11-01 07:17:00 Test Item Value Reference Range Interpretation Comments MCV (test code = MCV) 86.8 80.0-94.0 [place] [address]-11-01 07:17:00 Test Item Value Reference Range Interpretation Comments MCH (test code = MCH) 28.7 pg 27.0-31.0 [place] [address]-11-01 07:17:00 Test Item Value Reference Range Interpretation Comments MCHC (test code = MCHC) 33.1 32.0-36.0 [place] 104072-11-01 07:17:00 Test Item Value Reference Range Interpretation Comments RDW (test code = RDW) 13.9 11.5-14.5 [facility] PasoFpejddoMNKBCQXOIH3607-35-51 07:17:00 Test Item Value Reference Range Interpretation Comments Platelet (test code = Platelet) 207 133-450 [facility] PasoMnhlfqnSLZBSELPRU3211-84-65 07:17:00 Test Item Value Reference Range Interpretation Comments MPV (test code = MPV) 8.7 7.4-10.4 [facility] CenterUscudbkVBMVYTPEZ7708-28-78 07:17:00 Test Item Value Reference Range Interpretation Comments Glucose Lvl (test code = Glucose Lvl) 106 70-99 [facility] CenterQztrpkdBFJCNGHZG5638-34-25 07:17:00 Test Item Value Reference Range Interpretation Comments BUN (test code = BUN) 8 7-22 [facility] CenterLwcitxdGRPAHVWQV3476-30-07 07:17:00 Test Item Value Reference Range Interpretation Comments Creatinine Lvl (test code = Creatinine 1.05 0.50-1.40 Lvl) [facility] CenterNzaifkjFHZTSBRUA3684-50-91 07:17:00 Test Item Value Reference Range Interpretation Comments Sodium Lvl (test code = Sodium Lvl) 135 135-145 [facility] CenterAzyryarSZYQMZEGE3816-04-30 07:17:00 Test Item Value Reference Range Interpretation Comments Potassium Lvl (test code = Potassium 4.3 3.5-5.1 Lvl) [facility] CenterPaaehorQKACXBIXO3757-74-51 07:17:00 Test Item Value Reference Range Interpretation Comments Chloride Lvl (test code = Chloride Lvl) 102 95-109 [facility] CenterVxxgkjoTUMBKJFLN4991-62-66 07:17:00 Test Item Value Reference Range Interpretation Comments CO2 (test code = CO2) 23 24-32 [facility] CenterYynvmjmXPDKHTNAC3710-99-35 07:17:00 Test Item Value Reference Range Interpretation Comments Calcium Lvl (test code = Calcium Lvl) 9.1 8.5-10.5 [place] 08210022-10-31 22:18:10 Test Item Value Reference Range Interpretation [...] Arch bars are in place.IMPRESSION:Internal reduction fractures [facility]PnjxnokQQHZXX3105-98-87 19:17:41 Test Item Value Reference Range Interpretation Comments RADRPT (test code EXAM: CT FACIAL BONES = RADRPT) WITHOUT CONTRASTDATE: 05/17/2022 12:26INDICATION: - Mandibular FxCOMPARISON: CT facial bones from earlier the same dateTECHNIQUE: Volumetric CT of the facial bones is acquired without contrast. Axial, coronal and sagittal images are provided. IV contrast: None.DLP: Refer to CT protocol formUT SECTION: ERFINDINGS: Waste Disposal Leakage Tester: NoncontributoryBones: Similar appearance of a minimally displaced [...] angle fracture and right parasymphyseal mandibular fracture. [facility] PasoDoapwrnMMRUACDYTC1304-68-76 17:49:00 Test Item Value Reference Range Interpretation Comments Monocytes # (test code 0.7 See_Comment [Aut omated message] The = Monocytes #) system which generated this result tra nsmitted reference range : <=0.8. The reference r catherine was not used to int erpret this result as normal/abnormal . [facility] PasoTdtohjnRPLXAEDIJG4821-20-40 17:49:00 Test Item Value Reference Range Interpretation Comments WBC X 10x3 (test code = WBC X 10x3) 7.0 3.7-10.4 [facility] PasoLjpnaaoRVDJAPAAUW8900-11-32 17:49:00 Test Item Value Reference Range Interpretation Comments RBC X 10x6 (test code = RBC X 10x6) 5.09 4.70-6.10 [place] 104072-10-27 17:49:00 Test Item Value Reference Range Interpretation Comments Hgb (test code = Hgb) 14.6 14.0-18.0 [place] 104072-10-27 17:49:00 Test Item Value Reference Range Interpretation Comments Hct (test code = Hct) 44.3 42.0-54.0 [place] 104072-10-27 17:49:00 Test Item Value Reference Range Interpretation Comments MCV (test code = MCV) 87.1 80.0-94.0 [place] 104072-10-27 17:49:00 Test Item Value Reference Range Interpretation Comments MCH (test code = MCH) 28.6 pg 27.0-31.0 [place] 104072-10-27 17:49:00 Test Item Value Reference Range Interpretation Comments MCHC (test code = MCHC) 32.9 32.0-36.0 [place] 104072-10-27 17:49:00 Test Item Value Reference Range Interpretation Comments RDW (test code = RDW) 14.2 11.5-14.5 [place] 104072-10-27 17:49:00 Test Item Value Reference Range Interpretation Comments Platelet (test code = Platelet) 197 133-450 [facility] PasoXbatesiICMVYPHYSK8946-70-25 17:49:00 Test Item Value Reference Range Interpretation Comments MPV (test code = MPV) 8.2 7.4-10.4 [place] [address]-10-27 17:49:00 Test Item Value Reference Range Interpretation Comments Segs (test code = Segs) 64.6 45.0-75.0 [place] [address]-10-27 17:49:00 Test Item Value Reference Range Interpretation Comments Lymphocytes (test code = Lymphocytes) 23.9 20.0-40.0 [place] 104072-10-27 17:49:00 Test Item Value Reference Range Interpretation Comments Monocytes (test code = Monocytes) 10.4 2.0-12.0 [place] [address]-10-27 17:49:00 Test Item Value Reference Range Interpretation Comments Eosinophils (test code = 0.5 See_Comment [A utomated message] The Eosinophils) system which ge nerated this result tra nsmitted reference range : <=4.0. The reference r catherine was not used to int erpret this result as normal/abnormal . [place] 104072-10-27 17:49:00 Test Item Value Reference Range Interpretation Comments Basophils (test code = 0.6 See_Comment [Aut omated message] The Basophils) system which ge nerated this result tra nsmitted reference range : <=1.0. The reference r catherine was not used to int erpret this result as normal/abnormal . [place] 104072-10-27 17:49:00 Test Item Value Reference Range Interpretation Comments Neutrophils # (test code = Neutrophils 4.5 1.5-8.1 #) [place] [address]-10-27 17:49:00 Test Item Value Reference Range Interpretation Comments Lymphocytes # (test code = Lymphocytes 1.7 1.0-5.5 #) [place] [address]-10-27 17:49:00 Test Item Value Reference Range Interpretation Comments Monocytes # (test code 0.7 See_Comment [Aut omated message] The = Monocytes #) system which generated this result tra nsmitted reference range : <=0.8. The reference r catherine was not used to int erpret this result as normal/abnormal . [place] [address]-10-27 17:49:00 Test Item Value Reference Range Interpretation Comments WBC X 10x3 (test code = WBC X 10x3) 7.0 3.7-10.4 [place] [address]-10-27 17:49:00 Test Item Value Reference Range Interpretation Comments RBC X 10x6 (test code = RBC X 10x6) 5.09 4.70-6.10 [place] [address]-10-27 17:49:00 Test Item Value Reference Range Interpretation Comments Hgb (test code = Hgb) 14.6 14.0-18.0 [place] [address]-10-27 17:49:00 Test Item Value Reference Range Interpretation Comments Hct (test code = Hct) 44.3 42.0-54.0 [facility] PasoAxlcchbAXSGBORABV6147-30-32 17:49:00 Test Item Value Reference Range Interpretation Comments MCV (test code = MCV) 87.1 80.0-94.0 [facility] PasoNddcfrtULXFSFQCPV9517-66-69 17:49:00 Test Item Value Reference Range Interpretation Comments MCH (test code = MCH) 28.6 pg 27.0-31.0 [facility] PasoJlsosxmJBDFPRTQWX0404-97-36 17:49:00 Test Item Value Reference Range Interpretation Comments MCHC (test code = MCHC) 32.9 32.0-36.0 [facility] PasoWsooqzmDJBUJIQPUY4178-50-86 17:49:00 Test Item Value Reference Range Interpretation Comments RDW (test code = RDW) 14.2 11.5-14.5 [facility] PasoHpjuguiNTUEVTYUGN4186-23-80 17:49:00 Test Item Value Reference Range Interpretation Comments Platelet (test code = Platelet) 197 133-450 [facility] PasoImivcjeCZKAJNDHXA8583-60-56 17:49:00 Test Item Value Reference Range Interpretation Comments MPV (test code = MPV) 8.2 7.4-10.4 [facility] CenterUnfumihIZTVJSATMH8149-24-75 17:49:00 Test Item Value Reference Range Interpretation Comments Coronavirus (COVID-19) Not Detected DUARTE (test code = (05/17/22 12:49 PM) Coronavirus (COVID-19) DUARTE) [facility] CenterJjndrmjZURDRWKCDS1249-23-82 17:49:00 Test Item Value Reference Range Interpretation Comments Coronavirus (COVID-19) Not Detected DUARTE (test code = (05/17/22 12:49 PM) Coronavirus (COVID-19) DUARTE) [facility] NWTXNDF7288-43-54 17:49:00 Test Item Value Reference Range Interpretation Comments ABO/Rh (test code = ABO/Rh) B POS [facility] myseekit DBJLNEP2693-13-27 17:49:00 Test Item Value Reference Range Interpretation Comments Antibody Scrn (test Negative (05/17/22 code = Antibody Scrn) 12:49 PM) [facility] GSAXHYR3964-37-59 17:49:00 Test Item Value Reference Range Interpretation Comments ABO/Rh (test code = ABO/Rh) B POS [facility] [employer] [id number] 17:49:00 Test Item Value Reference Range Interpretation Comments Antibody Scrn (test Negative (05/17/22 code = Antibody Scrn) 12:49 PM) [place] [address]-10-27 17:49:00 Test Item Value Reference Range Interpretation Comments Glucose Lvl (test code = Glucose Lvl) 106 70-99 [place] 463812-10-27 17:49:00 Test Item Value Reference Range Interpretation Comments BUN (test code = BUN) 02-09 [place] 463812-10-27 17:49:00 Test Item Value Reference Range Interpretation Comments Creatinine Lvl (test code = Creatinine 1.04 0.50-1.40 Lvl) [place] 463812-10-27 17:49:00 Test Item Value Reference Range Interpretation Comments Sodium Lvl (test code = Sodium Lvl) 139 135-145 [place] 463812-10-27 17:49:00 Test Item Value Reference Range Interpretation Comments Potassium Lvl (test code = Potassium 3.8 3.5-5.1 Lvl) [place] 463812-10-27 17:49:00 Test Item Value Reference Range Interpretation Comments Chloride Lvl (test code = Chloride Lvl) 106 95-109 [place] 463812-10-27 17:49:00 Test Item Value Reference Range Interpretation Comments CO2 (test code = CO2) 29 -32 [place] 463812-10-27 17:49:00 Test Item Value Reference Range Interpretation Comments Calcium Lvl (test code = Calcium Lvl) 9.0 8.5-10.5 [place] 463812-10-27 17:49:00 Test Item Value Reference Range Interpretation Comments AGAP (test code = AGAP) 7.8 10.0-20.0 [place] 463812-10-27 17:49:00 Test Item Value Reference Range Interpretation Comments eGFR (test code = eGFR) 102 [facility] CenterUfouepoATJEWBLYM1020-32-32 17:49:00 Test Item Value Reference Range Interpretation Comments Glucose Lvl (test code = Glucose Lvl) 106 70-99 [place] 377082-10-27 17:49:00 Test Item Value Reference Range Interpretation Comments BUN (test code = BUN) 11 02-09 [place] 377082-10-27 17:49:00 Test Item Value Reference Range Interpretation Comments Creatinine Lvl (test code = Creatinine 1.04 0.50-1.40 Lvl) [facility] CenterPygiyygDQILPANJZ5999-31-53 17:49:00 Test Item Value Reference Range Interpretation Comments Sodium Lvl (test code = Sodium Lvl) 139 135-145 [facility] CenterPlgfcysEZTONGJKU9708-86-38 17:49:00 Test Item Value Reference Range Interpretation Comments Potassium Lvl (test code = Potassium 3.8 3.5-5.1 Lvl) [facility] CenterFwjxjgfNDEEYTDPZ0217-54-93 17:49:00 Test Item Value Reference Range Interpretation Comments Chloride Lvl (test code = Chloride Lvl) 106 95-109 [place] 377082-10-27 17:49:00 Test Item Value Reference Range Interpretation Comments CO2 (test code = CO2) 29 24-32 [facility] CenterGttsqukPQWKNGLKV8931-60-84 17:49:00 Test Item Value Reference Range Interpretation Comments Calcium Lvl (test code = Calcium Lvl) 9.0 8.5-10.5 [facility] CenterGauaivvQLMDKQAWD1177-95-69 17:49:00 Test Item Value Reference Range Interpretation Comments AGAP (test code = AGAP) 7.8 10.0-20.0 [place] [address]-10-27 17:49:00 Test Item Value Reference Range Interpretation Comments eGFR (test code = eGFR) 102 [place] 104072-10-27 17:49:00 Test Item Value Reference Range Interpretation Comments Segs (test code = Segs) 64.6 45.0-75.0 [place] 104072-10-27 17:49:00 Test Item Value Reference Range Interpretation Comments Lymphocytes (test code = Lymphocytes) 23.9 20.0-40.0 [place] [address]-10-27 17:49:00 Test Item Value Reference Range Interpretation Comments Monocytes (test code = Monocytes) 10.4 2.0-12.0 [place] 104072-10-27 17:49:00 Test Item Value Reference Range Interpretation Comments Eosinophils (test code = 0.5 See_Comment [A utomated message] The Eosinophils) system which ge nerated this result tra nsmitted reference range : <=4.0. The reference r catherine was not used to int erpret this result as normal/abnormal . [facility] PasoIkbrkevKYDFYXNALQ6426-53-52 17:49:00 Test Item Value Reference Range Interpretation Comments Basophils (test code = 0.6 See_Comment [Aut omated message] The Basophils) system which ge nerated this result tra nsmitted reference range : <=1.0. The reference r catherine was not used to int erpret this result as normal/abnormal . [place] [id number] 17:49:00 Test Item Value Reference Range Interpretation Comments Neutrophils # (test code = Neutrophils 4.5 1.5-8.1 #) [id number] 17:49:00 Test Item Value Reference Range Interpretation Comments Lymphocytes # (test code = Lymphocytes 1.7 1.0-5.5 #) [place] [id number] 15:23:27 Test Item Value Reference Range Interpretation [...] also presented for interpretation.IV contrast: Refer to MAR/orthopedic radiologic technologist documentationDLP: Refer to CT protocol formFINDINGS:NECK [...] the distal internal carotid artery {NASCET criteria}.) [place] [id number] 14:41:39 Test Item Value Reference Range Interpretation [...] CT scan for acute intracranial posttraumatic injuries. [id number] 14:04:31 Test Item Value Reference Range Interpretation Comments RADRPT (test code = EXAM: CT FACIAL BONES RADRPT) OUTSIDE CONSULTATIONDATE: 05/17/2022 7:54INDICATION: Second interpretation of outside CT performed on trauma transfer patient.COMPARISON: None.TECHNIQUE: Multiplanar images of the facial bones without contrast. Axial, sagittal and coronal images are provided. OUTSIDE REPORT: from [facility] DISCUSSION: A minimally displaced right parasymphyseal mandible [...] initial interpretation obtained from the referring facility. [id number] 13:34:35 Test Item Value Reference Range Interpretation [...] tissue abnormality is identified.IMPRESSION:1. No acute abnormality. [facility]
[2022-10-04] MEDS ORDERED: IPRATROPIUM BROM 0.5MG/2.5ML ONE (09:39)
[2022-10-04] MEDS ORDERED: METHYLPREDNISOLONE 125 MG INJ ONE (09:39)
[2022-10-04] MEDS ORDERED: ALBUTEROL 2.5 MG/3 ML NEB SOL ONE (09:39)
--- NOTE | 2022-10-04 10:55 | ER ---
Nurse's Notes [facility] Name: Paulette Lozoya Age: 26 yrs Sex: Male : 1995 Arrival Date: 10/04/2022 Time: : Bed 7 Private MD: Diagnosis: Unspecified asthma with (acute) exacerbation Presentation: 10/04 09:39 Chief complaint: Patient states: Asthma attack that started last night, out of home ph inhaler. Coronavirus screen: Vaccine status: Patient reports being unvaccinated. Ebola Screen: No symptoms or risks identified at this time. Initial Sepsis Screen: Does the patient meet any 2 criteria? No. Patient's initial sepsis screen is negative. Does the patient have a suspected source of infection? No. Patient's initial sepsis screen is negative. Risk Assessment: Do you want to hurt yourself or someone else? Patient reports no desire to harm self or others. Onset of symptoms was October 04, 2022. 09:39 Method Of Arrival: Ambulatory 09:39 Acuity: BLAKE 4 ph Triage Assessment: :42 General: Appears in no apparent distress. uncomfortable, well groomed, Behavior is ph calm, cooperative, appropriate for age, Denies fever, feeling ill. Pain: Denies pain. Neuro: Level of Consciousness is awake, alert, obeys commands, Oriented to person, place, time, situation. Cardiovascular: Capillary refill < 3 seconds in bilateral fingers Patient's skin is warm and dry. Respiratory: Reports pain with respiration. Respiratory: Reports shortness of breath at rest Airway is patent Respiratory effort is even, Respiratory pattern is tachypnea Breath sounds with wheezes in mediastinum. GI: No signs and/or symptoms were reported involving the gastrointestinal system. Derm: Skin is intact, is healthy with good turgor, Skin is pink, warm \T\ dry. Musculoskeletal: Circulation, motion, and sensation intact. Range of motion: intact in all extremities. Historical: - Allergies: :30 No Known Allergies; ph - PMHx: :30 adhd; Asthma; ph - PSHx: :30 knee surgery; ph - Immunization history:: Adult Immunizations unknown. - Social history:: Smoking status: Reported history of juuling and/or vaping. Screenin:42 [facility] Fall Risk Assessment (Adult) History of falling in the last 3 months, ph including since admission No falls in past 3 months (0 pts) Confusion or Disorientation No (0 pts) Intoxicated or Sedated No (0 pts) Impaired Gait No (0 pts) Mobility Assist Device Used No (0 pt) Altered Elimination No (0 pt) Score/Fall Risk Level 0 - 2 = Low Risk Oriented to surroundings, Maintained a safe environment, Hourly rounding (assess needs \T\ fall precautionary measures) done. Abuse screen: Denies threats or abuse. Denies injuries from another. Nutritional screening: No deficits noted. Tuberculosis screening: No symptoms or risk factors identified. Assessment: 09:44 General: SEE TRIAGE NOTE. ph Vital Signs: 09:39 BP 122 / 71; Pulse 74; Resp 24; Temp 97.5; Pulse Ox 97% on R/A; Weight 70.31 kg; Height ph 5 ft. 8 in. ; 10:15 BP 134 / 88; Pulse 88; Resp 20; Pulse Ox 98% ; ko1 09:39 Body Mass Index 23.57 (70.31 kg, 172.72 cm) ph ED Course: 09:26 Patient arrived in ED. rg4 09:29 Lindsay Olson FNP-C [facility]. kb 09:29 River Reno MD is Attending Physician. kb 09:30 Asuncion Serrano RN is Primary Nurse. ph 09:41 Triage completed. ph 09:41 Arm band placed on Patient placed in an exam room, on a stretcher, on pulse oximetry. ph 09:44 Patient has correct armband on for positive identification. Bed in low position. Call ph light in reach. Side rails up X 1. Pulse ox on. NIBP on. Door closed. Noise minimized. Lights dimmed. Warm blanket given. Administered Medications: 09:45 Drug: MethylPREDNISolone Sodium Succinate IM 125 mg Route: IM; Site: right deltoid; ph 09:45 Drug: DuoNeb Nebulize (3:1) (2.5 mg - 0.5 mg) 3 ml Route: Nebulizer; ph Medication: 09:44 VIS not applicable for this client. ph Outcome: 10:55 Discharge ordered by . kb Signatures: Lindsay Olson FNP-C FNP-Asuncion Alvarado RN RN ph Juana Horton rg4 Lea Reyes RN RN ko1 Corrections: (The following items were deleted from the chart) 09:44 09:42 Respiratory: Airway is patent Respiratory effort is even, Respiratory pattern is ph tachypnea Breath sounds with wheezes in mediastinum ph
--- NOTE | 2022-10-04 10:55 | EDPHYS ---
Physician Documentation [facility] Name: Paulette Lozoya Age: 26 yrs Sex: Male : 1995 Arrival Date: 10/04/2022 Time: 09:26 Bed 7 Private MD: ED Physician River Reno Historical: - Allergies: 10/04 09:30 No Known Allergies; ph - PMHx: 09:30 adhd; Asthma; ph - PSHx: 09:30 knee surgery; ph - Immunization history:: Adult Immunizations unknown. - Social history:: Smoking status: Reported history of juuling and/or vaping. Vital Signs: 09:39 BP 122 / 71; Pulse 74; Resp 24; Temp 97.5; Pulse Ox 97% on R/A; Weight 70.31 kg; Height ph 5 ft. 8 in. ; 10:15 BP 134 / 88; Pulse 88; Resp 20; Pulse Ox 98% ; ko1 09:39 Body Mass Index 23.57 (70.31 kg, 172.72 cm) ph MDM: 09:29 Patient medically screened. kb Administered Medications: 09:45 Drug: MethylPREDNISolone Sodium Succinate IM 125 mg Route: IM; Site: right deltoid; ph 09:45 Drug: DuoNeb Nebulize (3:1) (2.5 mg - 0.5 mg) 3 ml Route: Nebulizer; ph Disposition Summary: 10/04/22 10:55 Discharge Ordered Location: Home kb Condition: Stable kb Diagnosis - Unspecified asthma with (acute) exacerbation kb Followup: kb - With: Emergency Department - When: As needed - Reason: Worsening of condition Followup: kb - With: Private Physician - When: 2 - 3 days - Reason: Recheck today's complaints, Continuance of care, Re-evaluation by your physician Forms: - Medication Reconciliation Form kb - Thank You Letter kb - Antibiotic Education kb - Prescription Opioid Use kb Signatures: Lindsay Olson FNP-C FNP-Asuncion Alvarado, RN RN ph
[2022-10-04 15:17] VITALS: TEMP 97.5
[2022-10-04 15:18] VITALS: BP 134/88; O2SAT 98
== END 2022-10-04 11:07 | disposition home or self-care (01) ==
LOC: ER 09:24
DX: J45.901 Unspecified asthma with (acute) exacerbation (principal)
CPT/HCPCS: 94640; 96372; 99284; J2930; J7613; J7644

== ENCOUNTER 2023-05-26 12:27 | Emergency (ER) | payer SELFPAY ==
--- OUTSIDE RECORDS SUMMARY | 2023-05-26 12:31 | XMS REPORT | Continuity of Care Document ---
:1995 Author Organization [facility] t Address [address] [place] [address] [address] [place] [address] Care Team Providers Name Role Phone JAZIEL CABA Attending Clinician Unavailable Jaziel Caba Attending Clinician APOLINAR RAO Attending Clinician Unavailable Apolinar Rao III Attending Clinician APOLINAR RAO Attending Clinician Unavailable Emi Cosby Attending Clinician EMI COSBY Attending Clinician Unavailable DR LISA GARCIA Attending Clinician Unavailable Jessica Green III Admitting Clinician JESSICA GREEN Admitting Clinician Unavailable DR LISA GARCIA Admitting Clinician Unavailable Payers Payer Name Policy Type Policy Number Effective Date Expiration Date S ource [employer] [id number] 2022 COMPENSATION 00:00:00 GENERIC INTERFACED [id number] 2021 [facility] 00:00:00 Problems Condition Condition Condition Status Onset Resolution Last Treating Co mments Source Name Details Category Date Date Treatment Clinician Date FOLLOW UP FOLLOW Diagnosis Active 2021-072022-07-26 Memoria UP Active 09-18 09:57:00 l 07/18/2022 00:00: Iban blair [address] FOLLOW UP FOLLOW UP Diagnosis Active 2021-072022-06-22 Memoria Active 07-24 10:41:00 l 05/24/2022 00:00: Iban n [address] NA NA Active Diagnosis Active 2021-072023-04-29 Memoria 05/18/2022 0- 11:12:00 l [facility] 00:00: [address] MANDIBULAR MANDIBULA Diagnosis Active 2021-072023-04-24 Memoria FRACTURE R FRACTURE 0- 10:20:00 l Active 00:00: Buster 05/17/2022 00 [facility] Asthma Asthma Problem Active 2012-072022-05-21 Cortez jannie (disorder) (disorder) 0- 08:29:53 l Active 00:00: Buster 04/30/2013 00 Problem 05/21/2022 Data migrated from [employer] on 12/18/14. [facility] Fracture Fracture Problem Active 2022-08-27 Memoria of of 07:15:44 l mandible mandible Iban n (disorder) (disorder) Active Problem 08/27/2022 [facility] Allergic Allergic Problem Resolve 2012-072022-05-21 2022-05-21 Memoria rhinitis rhinitis d 0-10 08:29:53 08:29:53 l (disorder) (disorder) 00:00: He rmann Resolved 00 04/30/2013 Problem 05/21/2022 Data migrated from [employer] on 12/18/14. [facility] Hypertensi Hypertens Problem Resolve 2012-072022-05-21 2022-05-21 Memoria ve episode yarely d 0-10 08:29:53 08:29:53 l (disorder) episode 00:00: Remedios nn (disorder) 00 Resolved 04/30/2013 Problem 05/21/2022 Data migrated from [employer] on 12/18/14. [facility] Allergies, Adverse Reactions, Alerts Allergy Allergy Status Severity Reaction(s) Onset Inactive Treating Comm ents Source Name Type Date Date Clinician No Known No Known Active Memori a [facility]ati Medicati l on on [place] Allergie Allergie s s No Known DA Active [facility] Allerg Medical s [place] Social History Smoking Status Start Date Stop Date Source Tobacco smoking status 2022-05-18 18:45:29 Memor ial [place] Medications Ordered Filled Start Stop Current Ordering Indication Dosage Frequency Signature Comments Components Source Medication Medication Date Date Medication? Clinician (SIG) Name Name tramadol 2021-07 Yes 50 mg, PO, Mem oria 1-10 Q4-6H, PRN l 17:06: Pain, # 20 Buster 00 tab, 0 Refill(s) Peridex 2021-07 Yes 0.018 gm = Cortez jannie 0.12% 1-01 15 mL, PO, l topical 13:11: BID, swish Herm aimee liquid 00 and spit; do not swallow, # 480 mL, 0 Refill(s), Pharmacy: [id number], 175.26, cm, 05/21/22 19:34:00 CDT, Height, 69.091, kg, 05/21/22 19:34:00 CDT, Weight Tylenol 325 2021-07 Yes 650 mg = 2 Memoria mg oral 1-01 tab, PO, l tablet 13:11: Q4H, PRN [place] 00 Pain, X 10 day, # 120 tab, 0 Refill(s), Pharmacy: [facility] #[id number], 175.26, cm, 05/21/22 19:34:00 CDT, Height, 69.091, kg, 05/21/22 19:34:00 CDT, Weight Peridex 2021-07 Yes 0.018 gm = Cortez jannie 0.12% 1-01 15 mL, PO, l topical 13:11: BID, swish Herm aimee liquid 00 and spit; do not swallow, # 480 mL, 0 Refill(s), Pharmacy: [facility] #[id number], 175.26, cm, 05/21/22 19:34:00 CDT, Height, 69.091, kg, 05/21/22 19:34:00 CDT, Weight Tylenol 325 2021-07 Yes 650 mg = 2 Memoria mg oral 1-01 tab, PO, l tablet 13:11: Q4H, PRN Buster 00 Pain, X 10 day, # 120 tab, 0 Refill(s), Pharmacy: [facility] #[id number], 175.26, cm, 05/21/22 19:34:00 CDT, Height, 69.091, kg, 05/21/22 19:34:00 CDT, Weight tramadol 50 2021-07 Yes 50 mg = 1 M emoria mg oral 1-01 tab, PO, l tablet 13:10: Q4H, PRN Buster 00 Pain Score 4-6, # 18 tab, 0 Refill(s), Pharmacy: [facility] #[id number], 175.26, cm, 05/21/22 19:34:00 CDT, Height, 69.091, kg, 05/21/22 19:34:00 CDT, Weight tramadol 50 2021-07 Yes 50 mg = 1 M emoria mg oral 1-01 tab, PO, l tablet 13:10: Q4H, PRN [place] 00 Pain Score 4-6, # 18 tab, 0 Refill(s), Pharmacy: [id number], 175.26, cm, 05/21/22 19:34:00 CDT, Height, 69.091, kg, 05/21/22 19:34:00 CDT, Weight Augmentin 2021-07 Yes 875 mg = 1 Me moria 875 mg oral 1-01 tab, PO, l tablet 13:09: BID, X 10 Iban n 00 day, # 20 tab, 0 Refill(s), Pharmacy: [id number], 175.26, cm, 05/21/22 19:34:00 CDT, Height, 69.091, kg, 05/21/22 19:34:00 CDT, Weight Motrin 600 2021-07 Yes 600 mg = 1 M emoria mg oral 1-01 tab, PO, l tablet 13:09: Q6H, PRN [place] 00 Pain, take with food. PRN Pain/Fever , # 30 tab, 0 Refill(s), Pharmacy: [id number], 175.26, cm, 05/21/22 19:34:00 CDT, Height, 69.091, kg, 05/21/22 19:34:00 CDT, Weight Motrin 600 2021-07 Yes 600 mg = 1 M emoria mg oral 1-01 tab, PO, l tablet 13:09: Q6H, PRN [place] 00 Pain, take with food. PRN Pain/Fever , # 30 tab, 0 Refill(s), Pharmacy: [facility] #[id number], 175.26, cm, 05/21/22 19:34:00 CDT, Height, 69.091, kg, 05/21/22 19:34:00 CDT, Weight Augmentin 2021-07 Yes 875 mg = 1 Me moria 875 mg oral 1-01 tab, PO, l tablet 13:09: BID, X 10 Iban n 00 day, # 20 tab, 0 Refill(s), Pharmacy: [facility] #[id number], 175.26, cm, 05/21/22 19:34:00 CDT, Height, 69.091, kg, 05/21/22 19:34:00 CDT, Weight Motrin 600 2021-07 Yes 600 mg = 1 M emoria mg oral 0-27 tab, PO, l tablet 18:02: Q6H, PRN Buster 00 Pain, take with food. PRN Pain/Fever , # 30 tab, 0 Refill(s), Pharmacy: [id number] Tylenol 2021-07 Yes 1,000 mg = Cortez jannie Extra 0-27 2 tab, PO, l Strength 18:02: TID, PRN Remedios nn 500 mg oral 00 Pain, X 10 tablet day, # 30 tab, 0 Refill(s), Pharmacy: [facility][id number] tramadol 50 2021-07 Yes 50 mg = 1 M emoria mg oral 0-27 tab, PO, l tablet 18:02: BID, PRN Buster 00 Severe Pain At Night, # 10 tab, 0 Refill(s), Pharmacy: [id number] Augmentin 2021-07 Yes 875 mg = 1 Me moria 875 mg oral 0-27 tab, PO, l tablet 18:02: BID, X 10 Iban n 00 day, # 20 tab, 0 Refill(s), Pharmacy: [facility] Motrin 600 2021-07 Yes 600 mg = 1 M emoria mg oral 0-27 tab, PO, l tablet 18:02: Q6H, PRN Buster 00 Pain, take with food. PRN Pain/Fever , # 30 tab, 0 Refill(s), Pharmacy: [facility] #[id number] Tylenol 2021-07 Yes 1,000 mg = Cortez jannie Extra 0-27 2 tab, PO, l Strength 18:02: TID, PRN Remedios nn 500 mg oral 00 Pain, X 10 tablet day, # 30 tab, 0 Refill(s), Pharmacy: [facility] #[id number] tramadol 50 2021-07 Yes 50 mg = 1 M emoria mg oral 0-27 tab, PO, l tablet 18:02: BID, PRN [place] 00 Severe Pain At Night, # 10 tab, 0 Refill(s), Pharmacy: [facility] #[id number] Augmentin 2021-07 Yes 875 mg = 1 Me moria 875 mg oral 0-27 tab, PO, l tablet 18:02: BID, X 10 Iban n 00 day, # 20 tab, 0 Refill(s), Pharmacy: [facility] #[id number] fentaNYL 2021-07 No 50 Memoria 0-27 microgram, l 17:06: Route: Buster 00 IVP, ONCE, kg, Priority: STAT, Start date: 05/17/22 12:06:00 CDT, Stop date: 05/17/22 12:06:00 CDT fentaNYL 2021-07 No 50 Memoria 0-27 microgram, [...] "To be infused by Radiology Staff ONLY" Omnipaque 2021-07 No 50 mL, Memori a 350 mg/mL 0-27 Route: l 15:01: IVP, Drug Form: SOLN, kg, ONCALL, STAT, Start date: 05/17/22 10:01:00 CDT, Duration: 1 doses or times, Dose = 2.2ml/kg, Max dose = 100ml -- "To be infused by Radiology Staff ONLY" Unasyn 2021-07 No Notes: Memoria 0-27 Dosing l 12:20: based on [place] 00 Ampicillin component (Same as: Unasyn) Unasyn 2021-07 No Notes: Memoria 0-27 Dosing l 12:20: based on [place] 00 Ampicillin component (Same as: Unasyn) morphine 2021-07 No Notes: Memoria Sulfate 0-27 (Same l 12:04: as:MORPhin Buster 00 e Sulfate) Zofran 2021-07 No Notes: Memoria 0-27 (Same as: l 12:04: Zofran) Buster 00 MEDICATION WASTE Product Size: 4 mg Product Wasted: ___ mg Isolyte S 2021-07 No Notes: Memori a PH-7.4 0-27 (Same as: l (Bolus) IV 12:04: Isolyte S He rmann 00 PH7.4, Normosol-R PH 7.4, Plasma-Lyt e A ) morphine 2021-07 No Notes: Memoria Sulfate 0-27 (Same l 12:04: as:MORPhin [place] 00 e Sulfate) Zofran 2021-07 No Notes: Memoria 0-27 (Same as: l 12:04: Zofran) [place] 00 MEDICATION WASTE Product Size: 4 mg Product Wasted: ___ mg Isolyte S 2021-07 No Notes: Memori a PH-7.4 0-27 (Same as: l (Bolus) IV 12:04: Isolyte S He rmann 00 PH7.4, Normosol-R PH 7.4, Plasma-Lyt e A ) Immunizations Ordered Immunization Filled Immunization Date Status Commen ts Source Name Name diphtheria/pertussis 2022-05-17 Completed Cortez rial , acel/tetanus adult 17:36:00 Herm aimee Hx hepatitis A 2008-10-13 Completed [facility] vaccine<sup>2</sup> 05:00:00 Remedios nn diphtheria/pertussis 2008-03-05 Completed [place] rial , acel/tetanus 05:00:00 [place] adult<sup>1</sup> Hx meningococcal 2008-03-05 Completed [facility] vaccine<sup>4</sup> 05:00:00 Remedios nn Hx hepatitis A 2008-03-05 Completed [facility] vaccine<sup>3</sup> 05:00:00 Remedios nn varicella virus 2008-03-05 Completed [facility] vaccine<sup>5</sup> 05:00:00 Remedios nn Hx poliovirus 1996-06-10 Completed [facility] vaccine-unspecified< 06:00:00 Herm aimee sup>6</sup> diphtheria/pertussis 1996-06-10 Completed [place]ez rial , acel/tetanus 06:00:00 Buster ped<sup>8</sup> Hx haemophilus b 1996-06-10 Completed [facility] vaccine<sup>10</sup> 06:00:00 Herm aimee Hx poliovirus 1996-04-17 Completed [facility] vaccine-unspecified< 05:00:00 Herm aimee sup>7</sup> diphtheria/pertussis 1996-04-17 Completed [place]ez rial , acel/tetanus 05:00:00 Buster ped<sup>9</sup> Hx haemophilus b 1996-04-17 Completed [facility] vaccine<sup>11</sup> 05:00:00 Herm aimee Hx hepatitis B 1995 Completed [facility] vaccine<sup>12</sup> 05:00:00 Herm aimee diphtheria/pertussis Unknown Completed [place]ez rial , acel/tetanus adult Herm aimee Hx hepatitis A Unknown Completed [facility] vaccine<sup>2</sup> Remedios nn diphtheria/pertussis Unknown Completed [place]ez rial , acel/tetanus [place] adult<sup>1</sup> Hx meningococcal Unknown Completed [facility] vaccine<sup>4</sup> Remedios nn Hx hepatitis A Unknown Completed [facility] vaccine<sup>3</sup> Remedios nn varicella virus Unknown Completed [facility] vaccine<sup>5</sup> Remedios nn Hx poliovirus Unknown Completed [facility] vaccine-unspecified< Herm aimee sup>6</sup> diphtheria/pertussis Unknown Completed [place] rial , acel/tetanus Buster ped<sup>8</sup> Hx haemophilus b Unknown Completed [facility] vaccine<sup>10</sup> Herm aimee Hx poliovirus Unknown Completed [facility] vaccine-unspecified< Herm aimee sup>7</sup> diphtheria/pertussis Unknown Completed [place]ez rial , acel/tetanus Buster ped<sup>9</sup> Hx haemophilus b Unknown Completed [facility] vaccine<sup>11</sup> Herm aimee Hx hepatitis B Unknown Completed [facility] vaccine<sup>12</sup> Herm aimee Vital Signs Vital Name Observation Time Observation Value Comments Source Height 2020-04-16 06:00:00 175.26 CM Weight 2020-04-16 06:00:00 70.3 KG Heart Rate 2022-07-26 16:01:41 [facility] Buster Systolic (mm Hg) 2022-07-26 16:01:31 Cortez rial [place] Diastolic (mm Hg) 2022-07-26 16:01:31 Mem orial Buster Weight 2022-07-26 16:01:00 [facility] [place] Heart Rate 2022-05-31 16:04:44 [facility] Buster Systolic (mm Hg) 2022-05-31 16:04:20 Cortez rial [place] Diastolic (mm Hg) 2022-05-31 16:04:20 Mem orial [place] Weight 2022-05-31 16:04:00 [facility] Buster Heart Rate 2022-05-22 17:04:08 [facility] Buster Temperature Oral (F) 2022-05-22 17:04:01 97.6 F [facility] [place] Systolic (mm Hg) 2022-05-22 17:03:56 Cortez rial [place] Diastolic (mm Hg) 2022-05-22 17:03:56 Mem orial [place] Height 2022-05-22 00:34:00 5 [ft_i] [facility] Buster Weight 2022-05-22 00:34:00 [facility] [place] BMI Calculated 2022-05-22 00:34:00 Memori al Buster Temperature Oral (F) 2022-05-17 17:52:00 98.9 F [facility] Buster Heart Rate 2022-05-17 17:52:00 [facility] B[place] Systolic (mm Hg) 2022-05-17 17:52:00 Cortez rial Buster Diastolic (mm Hg) 2022-05-17 17:52:00 Mem orial Buster Respitory Rate 2022-05-17 17:52:00 Memori al Buster Systolic (mm Hg) 2022-05-17 11:05:00 Cortez rial Buster Diastolic (mm Hg) 2022-05-17 11:05:00 Mem orial [place] Heart Rate 2022-05-17 11:05:00 [facility] Buster Respitory Rate 2022-05-17 11:05:00 Memori al [place] Temperature Oral (F) 2022-05-17 11:05:00 98.6 F [facility] [place] Procedures Procedure Date / Time Performed Performing Clinician [facility] e Procedure on knee [facility] Remedios nn Encounters Start End Encounter Admission Attending Care Care Encounter Source Date/Time Date/Time Type Type Clinicians Facility Department ID 2022-08-21 Outpatient [facility] [id number] [place] 13:01:[id number] [facility] 2022-08-16 Outpatient [facility] [id number] [place] 18:19:[id number] [facility] 2022-06-11 Outpatient [facility] [id number] [place] 15:31:[id number] [facility] 2022-07-26 2022-08-25 [facility] [id number] Memoria 15:50:00 05:59:00 [place] 01 [facility] 2022-07-26 2022-08-24 Outpatient REAL, [facility] [id number] [facility] 09:50:00 23:59:00 JAZIEL 2022-07-26 2022-08-24 Outpatient Real, [facility] [id number] 09:50:00 23:59:00 Jaziel Mtanios 2022-05-31 2022-06-30 [facility] [id number] Memoria 15:54:00 05:59:00 [place] 00 l [facility] 2022-05-31 2022-06-29 Outpatient REAL, [facility] [id number] [facility] 09:54:00 23:59:00 JAZIEL 2022-05-31 2022-06-29 Outpatient Real, [facility] [id number] 09:54:00 23:59:00 Jaziel 00 Mtanios 2022-05-21 2022-05-22 [facility] [id number] Memoria 23:43:00 21:54:00 n r [place] 00 l [facility] 2022-05-21 2022-05-22 [facility] [id number] Memoria 23:43:00 21:54:00 n r Buster 00 l [facility] 2022-05-21 2022-05-22 [facility] [id number] [facility] 18:43:00 16:54:00 APOLINAR 2022-05-21 2022-05-22 Outpatient Jalen [facility] [id number] 18:43:00 16:54:00 [place] [id number] [place] 2022-05-21 2022-05-21 Outpatient JALEN [facility] [id number] [place] 07:30:00 07:30:00 [facility] 2022-05-17 2022-05-17 Emergency nullFlavo [facility] [id number] Memoria 11:04:00 18:04:00 r Buster 00 [facility] 2022-05-17 2022-05-17 Emergency nullFlavo [facility] [id number] Memoria 11:04:00 18:04:00 r [place] 00 [facility] 2022-05-17 2022-05-17 Outpatient Cosby, [facility] [id number] 06:04:00 13:04:00 Emi Chan 00 2022-05-17 2022-05-17 Outpatient Cosby, [facility] [id number] 06:04:00 13:04:00 Emi Chan 00 2022-05-17 2022-05-17 Emergency E COSBY, [facility] [address] [facility] 04:47:00 13:04:00 EMI 2020-04-16 2020-04-16 Outpatient E LISA GARCIA [facility] [id number] [facility] 05:54:00 06:32:00 [facility] Results Test Description Test Time Test Comments Results Result Comments Source RADRPT 2022-07-26 19:11:42 Test Item Value Reference Range Interpretation Comme nts RADRPT (test code = RADRPT) EXAM: XR PANOREXDATE: 07/26/2022 11:41IND ICATION: - arch bar removalCOMPARISON: CT without contrast 05/21/2022TECHNIQUE: A single Panorex view of the jaw.FINDINGS: Revisualized nondisplaced fracture of the left mandibular angle. The temporomandibular joints are well aligned. There is plate and screw fixation of a vertically oriented mandibular symphysis fracture. No hardware complication Interval removal of superior and inferior arch bars. Revisualized nondisplaced fractures of the left mandibular angle.No carious disease or periapical lucency.IMPRESSION:1. No acute abnormality.2. Revisualized plate and screw fixation of a healed mandibular symphysis fracture without complication.3. Unchanged nondisplaced fracture of the left mandibular angle. [facility]FPMEWFAKX5042[facility]28-42 07:17:00 Test Item Value Reference Range Interpretation Comments AGAP (test code = AGAP) 14.3 10.0-20.0 [place] [address]-11-01 07:17:00 Test Item Value Reference Range Interpretation Comments eGFR (test code = eGFR) 100 [place] 230482-11-01 07:17:00 Test Item Value Reference Range Interpretation Comments Segs (test code = Segs) 86.3 45.0-75.0 [place] 230482-11-01 07:17:00 Test Item Value Reference Range Interpretation Comments Lymphocytes (test code = Lymphocytes) 9.2 20.0-40.0 [place] [address]-11-01 07:17:00 Test Item Value Reference Range Interpretation Comments Monocytes (test code = Monocytes) 4.3 2.0-12.0 [place] [address]-11-01 07:17:00 Test Item Value Reference Range Interpretation Comments Basophils (test code = 0.2 See_Comment [Aut omated message] The Basophils) system which ge nerated this result tra nsmitted reference range : <=1.0. The reference r catherine was not used to int erpret this result as normal/abnormal . [place] 230482-11-01 07:17:00 Test Item Value Reference Range Interpretation Comments Neutrophils # (test code = Neutrophils 5.2 1.5-8.1 #) [place] [address]-11-01 07:17:00 Test Item Value Reference Range Interpretation Comments Lymphocytes # (test code = Lymphocytes 0.6 1.0-5.5 #) [place] [address]-11-01 07:17:00 Test Item Value Reference Range Interpretation Comments Monocytes # (test code 0.3 See_Comment [Aut omated message] The = Monocytes #) system which generated this result tra nsmitted reference range : <=0.8. The reference r catherine was not used to int erpret this result as normal/abnormal . [place] 230482-11-01 07:17:00 Test Item Value Reference Range Interpretation Comments WBC (test code = WBC) 6.1 3.7-10.4 [place] 230482-11-01 07:17:00 Test Item Value Reference Range Interpretation Comments RBC (test code = RBC) 4.69 4.70-6.10 [place] 230482-11-01 07:17:00 Test Item Value Reference Range Interpretation Comments Hgb (test code = Hgb) 13.5 14.0-18.0 [place] 230482-11-01 07:17:00 Test Item Value Reference Range Interpretation Comments Hct (test code = Hct) 40.7 42.0-54.0 [place] 230482-11-01 07:17:00 Test Item Value Reference Range Interpretation Comments MCV (test code = MCV) 86.8 80.0-94.0 [place] 230482-11-01 07:17:00 Test Item Value Reference Range Interpretation Comments MCH (test code = MCH) 28.7 pg 27.0-31.0 [place] 230482-11-01 07:17:00 Test Item Value Reference Range Interpretation Comments MCHC (test code = MCHC) 33.1 32.0-36.0 [place] 230482-11-01 07:17:00 Test Item Value Reference Range Interpretation Comments RDW (test code = RDW) 13.9 11.5-14.5 [place] 230482-11-01 07:17:00 Test Item Value Reference Range Interpretation Comments Platelet (test code = Platelet) 207 133-450 [place] 230482-11-01 07:17:00 Test Item Value Reference Range Interpretation Comments MPV (test code = MPV) 8.7 7.4-10.4 [place] 790022-11-01 07:17:00 Test Item Value Reference Range Interpretation Comments Glucose Lvl (test code = Glucose Lvl) 106 70-99 [place] 790022-11-01 07:17:00 Test Item Value Reference Range Interpretation Comments BUN (test code = BUN) 8 7-22 [facility] HospitalRzervpgWRHBVYJNM6281-42-96 07:17:00 Test Item Value Reference Range Interpretation Comments Creatinine Lvl (test code = Creatinine 1.05 0.50-1.40 Lvl) [facility] HospitalKlquefzQOLDBVIHR1583-34-25 07:17:00 Test Item Value Reference Range Interpretation Comments Sodium Lvl (test code = Sodium Lvl) 135 135-145 [facility] HospitalXnhuqwaFBPKSQRCU8769-51-05 07:17:00 Test Item Value Reference Range Interpretation Comments Potassium Lvl (test code = Potassium 4.3 3.5-5.1 Lvl) [facility] HospitalVnhpfwcSPJLDACPY3507-93-16 07:17:00 Test Item Value Reference Range Interpretation Comments Chloride Lvl (test code = Chloride Lvl) 102 95-109 [facility] HospitalYzvqakiHIKATMLUT8229-68-61 07:17:00 Test Item Value Reference Range Interpretation Comments CO2 (test code = CO2) 23 24-32 [place] 790022-11-01 07:17:00 Test Item Value Reference Range Interpretation Comments Calcium Lvl (test code = Calcium Lvl) 9.1 8.5-10.5 [facility] HospitalQkkozlzWHGWQPTPP7455-25-29 07:17:00 Test Item Value Reference Range Interpretation Comments AGAP (test code = AGAP) 14.3 10.0-20.0 [facility] HospitalLgofbodUMHKNXCPY5600-74-83 07:17:00 Test Item Value Reference Range Interpretation Comments eGFR (test code = eGFR) 100 [facility]CqwpsqaYRUXDFITTK4117-24-52 07:17:00 Test Item Value Reference Range Interpretation Comments Segs (test code = Segs) 86.3 45.0-75.0 [place] 230482-11-01 07:17:00 Test Item Value Reference Range Interpretation Comments Lymphocytes (test code = Lymphocytes) 9.2 20.0-40.0 [facility] HospitalIexociuKKCJMNEPYY0629-81-06 07:17:00 Test Item Value Reference Range Interpretation Comments Monocytes (test code = Monocytes) 4.3 2.0-12.0 [place] 230482-11-01 07:17:00 Test Item Value Reference Range Interpretation Comments Basophils (test code = Basophils) 0.2 <=1.0 [place] 230482-11-01 07:17:00 Test Item Value Reference Range Interpretation Comments Neutrophils # (test code = Neutrophils 5.2 1.5-8.1 #) [facility] HospitalAopozbbTYGXRLANOV1375-95-20 07:17:00 Test Item Value Reference Range Interpretation Comments Lymphocytes # (test code = Lymphocytes 0.6 1.0-5.5 #) [place] 230482-11-01 07:17:00 Test Item Value Reference Range Interpretation Comments Monocytes # (test code = Monocytes #) 0.3 <=0.8 [place] 230482-11-01 07:17:00 Test Item Value Reference Range Interpretation Comments WBC (test code = WBC) 6.1 3.7-10.4 [place] 230482-11-01 07:17:00 Test Item Value Reference Range Interpretation Comments RBC (test code = RBC) 4.69 4.70-6.10 [place] 230482-11-01 07:17:00 Test Item Value Reference Range Interpretation Comments Hgb (test code = Hgb) 13.5 14.0-18.0 [place] 230482-11-01 07:17:00 Test Item Value Reference Range Interpretation Comments Hct (test code = Hct) 40.7 42.0-54.0 [place] 230482-11-01 07:17:00 Test Item Value Reference Range Interpretation Comments MCV (test code = MCV) 86.8 80.0-94.0 [place] 230482-11-01 07:17:00 Test Item Value Reference Range Interpretation Comments MCH (test code = MCH) 28.7 pg 27.0-31.0 [place] 230482-11-01 07:17:00 Test Item Value Reference Range Interpretation Comments MCHC (test code = MCHC) 33.1 32.0-36.0 [place] 230482-11-01 07:17:00 Test Item Value Reference Range Interpretation Comments RDW (test code = RDW) 13.9 11.5-14.5 [place] 230482-11-01 07:17:00 Test Item Value Reference Range Interpretation Comments Platelet (test code = Platelet) 207 133-450 [facility] HospitalXnfojanEZGBFEWCSW3885-33-68 07:17:00 Test Item Value Reference Range Interpretation Comments MPV (test code = MPV) 8.7 7.4-10.4 [place] [address]-11-01 07:17:00 Test Item Value Reference Range Interpretation Comments Glucose Lvl (test code = Glucose Lvl) 106 70-99 [facility] HospitalAinqvmtKIJNMLSJX6210-12-78 07:17:00 Test Item Value Reference Range Interpretation Comments BUN (test code = BUN) 8 7-22 [place] 790022-11-01 07:17:00 Test Item Value Reference Range Interpretation Comments Creatinine Lvl (test code = Creatinine 1.05 0.50-1.40 Lvl) [facility] HospitalNfleclgPQKNRXQOQ3243-73-74 07:17:00 Test Item Value Reference Range Interpretation Comments Sodium Lvl (test code = Sodium Lvl) 135 135-145 [place] 790022-11-01 07:17:00 Test Item Value Reference Range Interpretation Comments Potassium Lvl (test code = Potassium 4.3 3.5-5.1 Lvl) [place] 790022-11-01 07:17:00 Test Item Value Reference Range Interpretation Comments Chloride Lvl (test code = Chloride Lvl) 102 95-109 [place] [address]-11-01 07:17:00 Test Item Value Reference Range Interpretation Comments CO2 (test code = CO2) 23 24-32 [place] 790022-11-01 07:17:00 Test Item Value Reference Range Interpretation Comments Calcium Lvl (test code = Calcium Lvl) 9.1 8.5-10.5 [place] [id number] 22:18:10 Test Item Value Reference Range Interpretation [...] Arch bars are in place.IMPRESSION:Internal reduction fractures [place] [id number] 22:18:10 Test Item Value Reference Range Interpretation [...] Arch bars are in place.IMPRESSION:Internal reduction fractures [place] [id number] 19:17:41 Test Item Value Reference Range Interpretation Comments RADRPT (test code EXAM: CT FACIAL BONES = RADRPT) WITHOUT CONTRASTDATE: 05/17/2022 12:26INDICATION: - Mandibular FxCOMPARISON: CT facial bones from earlier the same dateTECHNIQUE: Volumetric CT of the facial bones is acquired without contrast. Axial, coronal and sagittal images are provided. IV contrast: None.DLP: Refer to CT protocol formUT SECTION: ERFINDINGS: Tooth Clerk: NoncontributoryBones: Similar appearance of a minimally displaced [...] angle fracture and right parasymphyseal mandibular fracture. [facility]IidipfyBKEIDR0889-38-05 19:17:41 Test Item Value Reference Range Interpretation Comments RADRPT (test code EXAM: CT FACIAL BONES = RADRPT) WITHOUT CONTRASTDATE: 05/17/2022 12:26INDICATION: - Mandibular FxCOMPARISON: CT facial bones from earlier the same dateTECHNIQUE: Volumetric CT of the facial bones is acquired without contrast. Axial, coronal and sagittal images are provided. IV contrast: None.DLP: Refer to CT protocol formUT SECTION: ERFINDINGS: Tooth Clerk: NoncontributoryBones: Similar appearance of a minimally displaced [...] angle fracture and right parasymphyseal mandibular fracture. [facility] HospitalCzcudcyQFDSSSVCFV8817-20-91 17:49:00 Test Item Value Reference Range Interpretation Comments Monocytes # (test code 0.7 See_Comment [Aut omated message] The = Monocytes #) system which generated this result tra nsmitted reference range : <=0.8. The reference r catherine was not used to int erpret this result as normal/abnormal . [facility] HospitalNbfwqrhNPUBTZJUJR5571-44-06 17:49:00 Test Item Value Reference Range Interpretation Comments WBC X 10x3 (test code = WBC X 10x3) 7.0 3.7-10.4 [place] 230482-10-27 17:49:00 Test Item Value Reference Range Interpretation Comments RBC X 10x6 (test code = RBC X 10x6) 5.09 4.70-6.10 [facility] HospitalDwsemmwFOAOCRCVPG0883-34-43 17:49:00 Test Item Value Reference Range Interpretation Comments Hgb (test code = Hgb) 14.6 14.0-18.0 [place] 230482-10-27 17:49:00 Test Item Value Reference Range Interpretation Comments Hct (test code = Hct) 44.3 42.0-54.0 [place] [address]-10-27 17:49:00 Test Item Value Reference Range Interpretation Comments MCV (test code = MCV) 87.1 80.0-94.0 [place] 230482-10-27 17:49:00 Test Item Value Reference Range Interpretation Comments MCH (test code = MCH) 28.6 pg 27.0-31.0 [place] 230482-10-27 17:49:00 Test Item Value Reference Range Interpretation Comments MCHC (test code = MCHC) 32.9 32.0-36.0 [place] 230482-10-27 17:49:00 Test Item Value Reference Range Interpretation Comments RDW (test code = RDW) 14.2 11.5-14.5 [place] 230482-10-27 17:49:00 Test Item Value Reference Range Interpretation Comments Platelet (test code = Platelet) 197 133-450 [facility] HospitalNtnlluoVEKSLSXGBK9444-94-05 17:49:00 Test Item Value Reference Range Interpretation Comments MPV (test code = MPV) 8.2 7.4-10.4 [place] 230482-10-27 17:49:00 Test Item Value Reference Range Interpretation Comments Segs (test code = Segs) 64.6 45.0-75.0 [place] 230482-10-27 17:49:00 Test Item Value Reference Range Interpretation Comments Lymphocytes (test code = Lymphocytes) 23.9 20.0-40.0 [place] 230482-10-27 17:49:00 Test Item Value Reference Range Interpretation Comments Monocytes (test code = Monocytes) 10.4 2.0-12.0 [place] [address]-10-27 17:49:00 Test Item Value Reference Range Interpretation Comments Eosinophils (test code = 0.5 See_Comment [A utomated message] The Eosinophils) system which ge nerated this result tra nsmitted reference range : <=4.0. The reference r catherine was not used to int erpret this result as normal/abnormal . [place] 230482-10-27 17:49:00 Test Item Value Reference Range Interpretation Comments Basophils (test code = 0.6 See_Comment [Aut omated message] The Basophils) system which ge nerated this result tra nsmitted reference range : <=1.0. The reference r catherine was not used to int erpret this result as normal/abnormal . [facility] HospitalBhtpkeqQOWEDBAEXA2367-41-06 17:49:00 Test Item Value Reference Range Interpretation Comments Neutrophils # (test code = Neutrophils 4.5 1.5-8.1 #) [facility] HospitalNrccuqrYJDREVCHGC7790-09-00 17:49:00 Test Item Value Reference Range Interpretation Comments Lymphocytes # (test code = Lymphocytes 1.7 1.0-5.5 #) [place] 230482-10-27 17:49:00 Test Item Value Reference Range Interpretation Comments Monocytes # (test code 0.7 See_Comment [Aut omated message] The = Monocytes #) system which generated this result tra nsmitted reference range : <=0.8. The reference r catherine was not used to int erpret this result as normal/abnormal . [facility] HospitalHkrrqbeAIOHFGGRRL6433-52-43 17:49:00 Test Item Value Reference Range Interpretation Comments WBC X 10x3 (test code = WBC X 10x3) 7.0 3.7-10.4 [place] 230482-10-27 17:49:00 Test Item Value Reference Range Interpretation Comments RBC X 10x6 (test code = RBC X 10x6) 5.09 4.70-6.10 [facility] HospitalOlldustVHFDAAHNMJ1742-08-01 17:49:00 Test Item Value Reference Range Interpretation Comments Hgb (test code = Hgb) 14.6 14.0-18.0 [place] 230482-10-27 17:49:00 Test Item Value Reference Range Interpretation Comments Hct (test code = Hct) 44.3 42.0-54.0 [place] 230482-10-27 17:49:00 Test Item Value Reference Range Interpretation Comments MCV (test code = MCV) 87.1 80.0-94.0 [place] 230482-10-27 17:49:00 Test Item Value Reference Range Interpretation Comments MCH (test code = MCH) 28.6 pg 27.0-31.0 [facility] HospitalOaksdooJHDQADVONP9921-04-20 17:49:00 Test Item Value Reference Range Interpretation Comments MCHC (test code = MCHC) 32.9 32.0-36.0 [place] 230482-10-27 17:49:00 Test Item Value Reference Range Interpretation Comments RDW (test code = RDW) 14.2 11.5-14.5 [facility]CfcslcmBQYHKBIRAT6943-94-58 17:49:00 Test Item Value Reference Range Interpretation Comments Platelet (test code = Platelet) 197 133-450 [facility]YhkhbqlLLLCJJKFSS3883-62-42 17:49:00 Test Item Value Reference Range Interpretation Comments MPV (test code = MPV) 8.2 7.4-10.4 [facility] CenterNenuheuXVOBWWZCSW5115-89-42 17:49:00 Test Item Value Reference Range Interpretation Comments Coronavirus (COVID-19) Not Detected DUARTE (test code = (05/17/22 12:49 PM) Coronavirus (COVID-19) DUARTE) [facility] HospitalZkdddaaQWHBHGHYFC6754-21-03 17:49:00 Test Item Value Reference Range Interpretation Comments Coronavirus (COVID-19) Not Detected DUARTE (test code = (05/17/22 12:49 PM) Coronavirus (COVID-19) DUARTE) [facility] [employer] UYAQTSW5920-05-70 17:49:00 Test Item Value Reference Range Interpretation Comments ABO/Rh (test code = ABO/Rh) B POS [facility] [employer] ZAQWTXR3307-09-02 17:49:00 Test Item Value Reference Range Interpretation Comments Antibody Scrn (test Negative (05/17/22 code = Antibody Scrn) 12:49 PM) [facility] [employer] GIUBIUG8140-32-22 17:49:00 Test Item Value Reference Range Interpretation Comments ABO/Rh (test code = ABO/Rh) B POS [facility] [employer] QEJOLOF2506-00-99 17:49:00 Test Item Value Reference Range Interpretation Comments Antibody Scrn (test Negative (05/17/22 code = Antibody Scrn) 12:49 PM) [employer] XWBIZ4929-10-94 17:49:00 Test Item Value Reference Range Interpretation Comments Glucose Lvl (test code = Glucose Lvl) 106 70-99 [facility] [employer] QVENJ1248-93-06 17:49:00 Test Item Value Reference Range Interpretation Comments BUN (test code = BUN) 11 02-09 [facility] [employer] WYBPW2098-48-62 17:49:00 Test Item Value Reference Range Interpretation Comments Creatinine Lvl (test code = Creatinine 1.04 0.50-1.40 Lvl) [place] 668092-10-27 17:49:00 Test Item Value Reference Range Interpretation Comments Sodium Lvl (test code = Sodium Lvl) 139 135-145 [place] 668092-10-27 17:49:00 Test Item Value Reference Range Interpretation Comments Potassium Lvl (test code = Potassium 3.8 3.5-5.1 Lvl) [place] 668092-10-27 17:49:00 Test Item Value Reference Range Interpretation Comments Chloride Lvl (test code = Chloride Lvl) 106 95-109 [place] 668092-10-27 17:49:00 Test Item Value Reference Range Interpretation Comments CO2 (test code = CO2) 29 24-32 [place] 668092-10-27 17:49:00 Test Item Value Reference Range Interpretation Comments Calcium Lvl (test code = Calcium Lvl) 9.0 8.5-10.5 [place] 668092-10-27 17:49:00 Test Item Value Reference Range Interpretation Comments AGAP (test code = AGAP) 7.8 10.0-20.0 [place] 668092-10-27 17:49:00 Test Item Value Reference Range Interpretation Comments eGFR (test code = eGFR) 102 [facility]HtsljwtXKMFJJQQG6750-32-86 17:49:00 Test Item Value Reference Range Interpretation Comments Glucose Lvl (test code = Glucose Lvl) 106 70-99 [place] 790022-10-27 17:49:00 Test Item Value Reference Range Interpretation Comments BUN (test code = BUN) 11 - [place] [address]-10-27 17:49:00 Test Item Value Reference Range Interpretation Comments Creatinine Lvl (test code = Creatinine 1.04 0.50-1.40 Lvl) [place] 790022-10-27 17:49:00 Test Item Value Reference Range Interpretation Comments Sodium Lvl (test code = Sodium Lvl) 139 135-145 [place] 790022-10-27 17:49:00 Test Item Value Reference Range Interpretation Comments Potassium Lvl (test code = Potassium 3.8 3.5-5.1 Lvl) [place] 790022-10-27 17:49:00 Test Item Value Reference Range Interpretation Comments Chloride Lvl (test code = Chloride Lvl) 106 95-109 [place] 790022-10-27 17:49:00 Test Item Value Reference Range Interpretation Comments CO2 (test code = CO2) 29 24-32 [place] 790022-10-27 17:49:00 Test Item Value Reference Range Interpretation Comments Calcium Lvl (test code = Calcium Lvl) 9.0 8.5-10.5 [place] 790022-10-27 17:49:00 Test Item Value Reference Range Interpretation Comments AGAP (test code = AGAP) 7.8 10.0-20.0 [facility] HospitalQppysfdZFJXHBYTQ0162-42-40 17:49:00 Test Item Value Reference Range Interpretation Comments eGFR (test code = eGFR) 102 [facility] HospitalFbstxjlICUCWSKDPB1745-68-60 17:49:00 Test Item Value Reference Range Interpretation Comments Segs (test code = Segs) 64.6 45.0-75.0 [place] 230482-10-27 17:49:00 Test Item Value Reference Range Interpretation Comments Lymphocytes (test code = Lymphocytes) 23.9 20.0-40.0 [place] 230482-10-27 17:49:00 Test Item Value Reference Range Interpretation Comments Monocytes (test code = Monocytes) 10.4 2.0-12.0 [facility] HospitalHfxliwuDMMNCGAGEF3334-10-27 17:49:00 Test Item Value Reference Range Interpretation Comments Eosinophils (test code = 0.5 See_Comment [A utomated message] The Eosinophils) system which ge nerated this result tra nsmitted reference range : <=4.0. The reference r catherine was not used to int erpret this result as normal/abnormal . [facility] HospitalGbpepyyTHQYJWJMNS3689-48-67 17:49:00 Test Item Value Reference Range Interpretation Comments Basophils (test code = 0.6 See_Comment [Aut omated message] The Basophils) system which ge nerated this result tra nsmitted reference range : <=1.0. The reference r catherine was not used to int erpret this result as normal/abnormal . [facility] HospitalFfexqewDYIXHAPCCG1171-57-61 17:49:00 Test Item Value Reference Range Interpretation Comments Neutrophils # (test code = Neutrophils 4.5 1.5-8.1 #) [place] [address]-10-27 17:49:00 Test Item Value Reference Range Interpretation Comments Lymphocytes # (test code = Lymphocytes 1.7 1.0-5.5 #) [place] [address]-10-27 17:49:00 Test Item Value Reference Range Interpretation Comments Monocytes (test code = Monocytes) 10.4 2.0-12.0 [place] [address]-10-27 17:49:00 Test Item Value Reference Range Interpretation Comments Eosinophils (test code = Eosinophils) 0.5 <=4.0 [place] [address]-10-27 17:49:00 Test Item Value Reference Range Interpretation Comments Basophils (test code = Basophils) 0.6 <=1.0 [place] [address]-10-27 17:49:00 Test Item Value Reference Range Interpretation Comments Neutrophils # (test code = Neutrophils 4.5 1.5-8.1 #) [place] [address]-10-27 17:49:00 Test Item Value Reference Range Interpretation Comments Lymphocytes # (test code = Lymphocytes 1.7 1.0-5.5 #) [place] [address]-10-27 17:49:00 Test Item Value Reference Range Interpretation Comments Monocytes # (test code = Monocytes #) 0.7 <=0.8 [address]10-27 17:49:00 Test Item Value Reference Range Interpretation Comments WBC X 10x3 (test code = WBC X 10x3) 7.0 3.7-10.4 [place] [address]-10-27 17:49:00 Test Item Value Reference Range Interpretation Comments RBC X 10x6 (test code = RBC X 10x6) 5.09 4.70-6.10 [place] [address]-10-27 17:49:00 Test Item Value Reference Range Interpretation Comments Hgb (test code = Hgb) 14.6 14.0-18.0 [place] [address]-10-27 17:49:00 Test Item Value Reference Range Interpretation Comments Hct (test code = Hct) 44.3 42.0-54.0 [place] [address]-10-27 17:49:00 Test Item Value Reference Range Interpretation Comments MCV (test code = MCV) 87.1 80.0-94.0 [place] [address]-10-27 17:49:00 Test Item Value Reference Range Interpretation Comments MCH (test code = MCH) 28.6 pg 27.0-31.0 [place] 230482-10-27 17:49:00 Test Item Value Reference Range Interpretation Comments MCHC (test code = MCHC) 32.9 32.0-36.0 [place] 230482-10-27 17:49:00 Test Item Value Reference Range Interpretation Comments RDW (test code = RDW) 14.2 11.5-14.5 [place] 230482-10-27 17:49:00 Test Item Value Reference Range Interpretation Comments Platelet (test code = Platelet) 197 133-450 [facility] HospitalXfwhrkjRZKJYAURXV6800-38-53 17:49:00 Test Item Value Reference Range Interpretation Comments MPV (test code = MPV) 8.2 7.4-10.4 [place] 230482-10-27 17:49:00 Test Item Value Reference Range Interpretation Comments Segs (test code = Segs) 64.6 45.0-75.0 [place] 230482-10-27 17:49:00 Test Item Value Reference Range Interpretation Comments Lymphocytes (test code = Lymphocytes) 23.9 20.0-40.0 [place] 230482-10-27 17:49:00 Test Item Value Reference Range Interpretation Comments Monocytes (test code = Monocytes) 10.4 2.0-12.0 [place] 230482-10-27 17:49:00 Test Item Value Reference Range Interpretation Comments Eosinophils (test code = Eosinophils) 0.5 <=4.0 [place] 230482-10-27 17:49:00 Test Item Value Reference Range Interpretation Comments Basophils (test code = Basophils) 0.6 <=1.0 [place] [address]-10-27 17:49:00 Test Item Value Reference Range Interpretation Comments Neutrophils # (test code = Neutrophils 4.5 1.5-8.1 #) [place] 230482-10-27 17:49:00 Test Item Value Reference Range Interpretation Comments Lymphocytes # (test code = Lymphocytes 1.7 1.0-5.5 #) [place] 230482-10-27 17:49:00 Test Item Value Reference Range Interpretation Comments Monocytes # (test code = Monocytes #) 0.7 <=0.8 [facility] HospitalXprdlbrNICXZUTSMG2514-10-16 17:49:00 Test Item Value Reference Range Interpretation Comments WBC X 10x3 (test code = WBC X 10x3) 7.0 3.7-10.4 [facility] HospitalImexechDVFBGIMVBP2162-23-63 17:49:00 Test Item Value Reference Range Interpretation Comments RBC X 10x6 (test code = RBC X 10x6) 5.09 4.70-6.10 [facility] HospitalHvqiaiaKVSLDCRZUO0460-38-58 17:49:00 Test Item Value Reference Range Interpretation Comments Hgb (test code = Hgb) 14.6 14.0-18.0 [place] 230482-10-27 17:49:00 Test Item Value Reference Range Interpretation Comments Hct (test code = Hct) 44.3 42.0-54.0 [place] 230482-10-27 17:49:00 Test Item Value Reference Range Interpretation Comments MCV (test code = MCV) 87.1 80.0-94.0 [facility] HospitalJdwslmwKQAPOBORSI7209-06-14 17:49:00 Test Item Value Reference Range Interpretation Comments MCH (test code = MCH) 28.6 pg 27.0-31.0 [facility] HospitalUwbigvkCGBOUEGBWZ1684-91-22 17:49:00 Test Item Value Reference Range Interpretation Comments MCHC (test code = MCHC) 32.9 32.0-36.0 [facility] HospitalFmleqmoTIGHUNUOUE8302-44-46 17:49:00 Test Item Value Reference Range Interpretation Comments RDW (test code = RDW) 14.2 11.5-14.5 [facility] HospitalNhvguixIAIUDNDBPR9192-08-82 17:49:00 Test Item Value Reference Range Interpretation Comments Platelet (test code = Platelet) 197 133-450 [facility] HospitalWrpuncpOTMGRVPSBV1453-52-49 17:49:00 Test Item Value Reference Range Interpretation Comments MPV (test code = MPV) 8.2 7.4-10.4 [place] 449562-10-27 17:49:00 Test Item Value Reference Range Interpretation Comments Coronavirus (COVID-19) Not Detected DUARTE (test code = (05/17/22 12:49 PM) Coronavirus (COVID-19) DUARTE) [facility]KnlidzfOTHQIKYDWW6869-75-47 17:49:00 Test Item Value Reference Range Interpretation Comments Coronavirus (COVID-19) Not Detected DUARTE (test code = (05/17/22 12:49 PM) Coronavirus (COVID-19) DUARTE) [facility] [employer] KFBJYOJ9150-33-78 17:49:00 Test Item Value Reference Range Interpretation Comments ABO/Rh (test code = ABO/Rh) B POS [facility] [employer] UJZCTQU3859-92-19 17:49:00 Test Item Value Reference Range Interpretation Comments Antibody Scrn (test Negative (05/17/22 code = Antibody Scrn) 12:49 PM) [employer] ZAGNYNG6878-28-63 17:49:00 Test Item Value Reference Range Interpretation Comments ABO/Rh (test code = ABO/Rh) B POS [facility] [employer] YLLVYAF3783-28-33 17:49:00 Test Item Value Reference Range Interpretation Comments Antibody Scrn (test Negative (05/17/22 code = Antibody Scrn) 12:49 PM) [employer]2022-10-27 17:49:00 Test Item Value Reference Range Interpretation Comments Glucose Lvl (test code = Glucose Lvl) 106 70-99 [employer]2022-10-27 17:49:00 Test Item Value Reference Range Interpretation Comments BUN (test code = BUN) 11 02-09 [employer]2022-10-27 17:49:00 Test Item Value Reference Range Interpretation Comments Creatinine Lvl (test code = Creatinine 1.04 0.50-1.40 Lvl) [employer]2022-10-27 17:49:00 Test Item Value Reference Range Interpretation Comments Sodium Lvl (test code = Sodium Lvl) 139 135-145 [employer]2022-10-27 17:49:00 Test Item Value Reference Range Interpretation Comments Potassium Lvl (test code = Potassium 3.8 3.5-5.1 Lvl) [employer]2022-10-27 17:49:00 Test Item Value Reference Range Interpretation Comments Chloride Lvl (test code = Chloride Lvl) 106 95-109 [employer]2022-10-27 17:49:00 Test Item Value Reference Range Interpretation Comments CO2 (test code = CO2) [facility]2022-10-27 17:49:00 Test Item Value Reference Range Interpretation Comments Calcium Lvl (test code = Calcium Lvl) 9.0 8.5-10.5 [facility]2022-10-27 17:49:00 Test Item Value Reference Range Interpretation Comments AGAP (test code = AGAP) 7.8 10.0-20.0 [facility]2022-10-27 17:49:00 Test Item Value Reference Range Interpretation Comments eGFR (test code = eGFR) 102 [facility]KjnjksdUFYWBENTA4497-16-31 17:49:00 Test Item Value Reference Range Interpretation Comments Glucose Lvl (test code = Glucose Lvl) 106 70-99 [facility] HospitalTdficzrWTOKTNYKC0347-37-12 17:49:00 Test Item Value Reference Range Interpretation Comments BUN (test code = BUN) 02-09 [facility] HospitalCiwpmzfFLLCSUMJD4971-51-07 17:49:00 Test Item Value Reference Range Interpretation Comments Creatinine Lvl (test code = Creatinine 1.04 0.50-1.40 Lvl) [facility] HospitalEohmgczPYTSAAIZX4255-14-97 17:49:00 Test Item Value Reference Range Interpretation Comments Sodium Lvl (test code = Sodium Lvl) 139 135-145 [facility] HospitalKdpvxknZNDQIYVIJ3328-30-78 17:49:00 Test Item Value Reference Range Interpretation Comments Potassium Lvl (test code = Potassium 3.8 3.5-5.1 Lvl) [facility] HospitalGqaeivfRLSWENSXR7556-38-43 17:49:00 Test Item Value Reference Range Interpretation Comments Chloride Lvl (test code = Chloride Lvl) 106 95-109 [facility] HospitalOxpawxkFJTPPWSLP4731-54-73 17:49:00 Test Item Value Reference Range Interpretation Comments CO2 (test code = CO2) [facility] HospitalJhouldkYCEKYHFIL7322-01-73 17:49:00 Test Item Value Reference Range Interpretation Comments Calcium Lvl (test code = Calcium Lvl) 9.0 8.5-10.5 [facility] HospitalKlkyyuoRZTAGGISS8178-52-50 17:49:00 Test Item Value Reference Range Interpretation Comments AGAP (test code = AGAP) 7.8 10.0-20.0 [facility] HospitalJqwwiphDAXVEGKIS1805-72-22 17:49:00 Test Item Value Reference Range Interpretation Comments eGFR (test code = eGFR) 102 [facility] HospitalIltgsnjGWAHQZOLFC1111-61-02 17:49:00 Test Item Value Reference Range Interpretation Comments Segs (test code = Segs) 64.6 45.0-75.0 [facility] HospitalKqdzywjXIVTJDMWXF9527-07-63 17:49:00 Test Item Value Reference Range Interpretation Comments Lymphocytes (test code = Lymphocytes) 23.9 20.0-40.0 [place] 08666022-10-27 15:23:27 Test Item Value Reference Range Interpretation [...] also presented for interpretation.IV contrast: Refer to MAR/certified cytotechnologist documentationDLP: Refer to CT protocol formFINDINGS:NECK CTA:Aortic [...] the distal internal carotid artery {NASCET criteria}.) [place] 08666022-10-27 15:23:27 Test Item Value Reference Range Interpretation [...] also presented for interpretation.IV contrast: Refer to MAR/certified cytotechnologist documentationDLP: Refer to CT protocol formFINDINGS:NECK CTA:Aortic [...] the distal internal carotid artery {NASCET criteria}.) [facility]ZdgudfuNTDYFX0083-24-44 14:41:39 Test Item Value Reference Range Interpretation [...] CT scan for acute intracranial posttraumatic injuries. [facility] NorthwestTluuilkVGYASC3838-53-62 14:41:39 Test Item Value Reference Range Interpretation [...] CT scan for acute intracranial posttraumatic injuries. [facility] NorthwestRbkzzbrGCIQKX2641-67-80 14:04:31 Test Item Value Reference Range Interpretation Comments RADRPT (test code = EXAM: CT FACIAL BONES RADRPT) OUTSIDE CONSULTATIONDATE: 05/17/2022 7:54INDICATION: Second interpretation of outside CT performed on trauma transfer patient.COMPARISON: None.TECHNIQUE: Multiplanar images of the facial bones without contrast. Axial, sagittal and coronal images are provided. OUTSIDE REPORT: from [facility] DISCUSSION: A minimally displaced right parasymphyseal mandible [...] initial interpretation obtained from the referring facility. [facility] NorthwestSxqdyizGBGZMX9338-77-49 14:04:31 Test Item Value Reference Range Interpretation Comments RADRPT (test code = EXAM: CT FACIAL BONES RADRPT) OUTSIDE CONSULTATIONDATE: 05/17/2022 7:54INDICATION: Second interpretation of outside CT performed on trauma transfer patient.COMPARISON: None.TECHNIQUE: Multiplanar images of the facial bones without contrast. Axial, sagittal and coronal images are provided. OUTSIDE REPORT: from [facility] DISCUSSION: A minimally displaced right parasymphyseal mandible [...] initial interpretation obtained from the referring facility. [id number] 13:34:35 Test Item Value Reference Range Interpretation [...] tissue abnormality is identified.IMPRESSION:1. No acute abnormality. [id number] 13:34:35 Test Item Value Reference Range Interpretation [...] tissue abnormality is identified.IMPRESSION:1. No acute abnormality. [facility]
--- NOTE | 2023-05-26 13:03 | ER ---
Nurse's Notes [facility] Name: Paulette Lozoya Age: 27 yrs Sex: Male : 1995 Arrival Date: 05/26/2023 Time: 12:27 Bed IW2 Private MD: Diagnosis: Local infection of the skin and subcutaneous tissue, unspecified Presentation: 05/26 12:50 Chief complaint: Patient states: swelling to 4th finger on left hand. Pt states that 1 cm10 week ago he cut his finger with some glass while changing his tire. Pt states that today he woke up with his hand swollen. Coronavirus screen: Vaccine status: Patient reports receiving the 2nd dose of the covid vaccine. Client denies travel out of the [place] in the last 14 days. Ebola Screen: Patient denies travel to an Ebola-affected area in the 21 days before illness onset. No symptoms or risks identified at this time. Initial Sepsis Screen: Does the patient meet any 2 criteria? No. Patient's initial sepsis screen is negative. Does the patient have a suspected source of infection? No. Patient's initial sepsis screen is negative. Risk Assessment: Do you want to hurt yourself or someone else? Patient reports no desire to harm self or others. Onset of symptoms was May 26, 2023. 12:50 Method Of Arrival: Ambulatory cm10 12:50 Acuity: BLAKE 4 cm10 Triage Assessment: 13:07 General: Appears in no apparent distress. comfortable, Behavior is calm, cooperative. cm10 Pain: Complains of pain in dorsal aspect of distal phalanx of left ring finger. EENT: No deficits noted. No signs and/or symptoms were reported regarding the EENT system. Neuro: No deficits noted. Maki Agitation-Sedation Scale (RASS): 0 - Alert and Calm Level of Consciousness is awake, alert, obeys commands, Oriented to person, place, time, situation. Cardiovascular: No deficits noted. Patient's skin is warm and dry. Respiratory: No deficits noted. Airway is patent Respiratory effort is even, unlabored, Respiratory pattern is regular, symmetrical. GI: No deficits noted. No signs and/or symptoms were reported involving the gastrointestinal system. : No deficits noted. No signs and/or symptoms were reported regarding the genitourinary system. Derm: No deficits noted. No signs and/or symptoms reported regarding the dermatologic system. Skin is intact, Skin is pink, warm \T\ dry. Musculoskeletal: No deficits noted. No signs and/or symptoms reported regarding the musculoskeletal system. Range of motion: intact in all extremities. Historical: - Allergies: 12:50 No Known Allergies; cm10 - PMHx: 12:50 adhd; Asthma; cm10 - PSHx: 12:50 knee surgery; cm10 - Immunization history:: Adult Immunizations unknown. - Social history:: Smoking status: Patient reports the use of cigarette tobacco products, denies chronic smoking, but will smoke occasionally. Screenin:08 [facility] ED Fall Risk Assessment (Adult) History of falling in the last 3 months, cm10 including since admission No falls in past 3 months (0 pts) Confusion or Disorientation No (0 pts) Intoxicated or Sedated No (0 pts) Impaired Gait No (0 pts) Mobility Assist Device Used No (0 pt) Altered Elimination No (0 pt) Score/Fall Risk Level 0 - 2 = Low Risk Oriented to surroundings, Maintained a safe environment, Hourly rounding (assess needs \T\ fall precautionary measures) done. Abuse screen: Denies threats or abuse. Denies injuries from another. Nutritional screening: No deficits noted. Tuberculosis screening: No symptoms or risk factors identified. Assessment: 13:28 Reassessment: Patient appears in no apparent distress at this time. Patient and/or hb family updated on plan of care and expected duration. Pain level reassessed. Patient is alert, oriented x 3, equal unlabored respirations, skin warm/dry/pink. Vital Signs: 12:50 BP 129 / 98; Pulse 64; Resp 18; Temp 98.2; Pulse Ox 100% on R/A; Weight 70.31 kg; cm10 Height 5 ft. 9 in. ; Pain 3/10; 12:50 Body Mass Index 22.89 (70.31 kg, 175.26 cm) cm10 12:50 Pain Scale: Adult cm10 ED Course: 12:29 Patient arrived in ED. rg4 12:36 Kend[facility] Clifford [facility]. jh7 12:36 Oscar Otero MD is Attending Physician. jh7 12:51 Triage completed. cm10 12:51 Arm band placed on Patient placed in waiting room. cm10 13:08 Patient has correct armband on for positive identification. Provided Education on: ER cm10 process and procedures. . 13:08 No provider procedures requiring assistance completed. Patient did not have IV access cm10 during this emergency room visit. Administered Medications: No medications were administered Medication: 13:08 VIS not applicable for this client. cm10 Outcome: 13:03 Discharge ordered by MD. mari 13:28 Discharged to home ambulatory, 13:28 Condition: stable 13:28 Discharge instructions given to patient, Instructed on discharge instructions, follow up and referral plans. medication usage, wound care, Demonstrated understanding of instructions, follow-up care, medications, wound care, Prescriptions given X 2, 13:29 Patient left the ED. Signatures: Yanely Moses, RN RN Juana Herrera 4 Kendra Clifford, GEODESIST GEODESIST Jackelyn Lopez, RN RN cm10
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
[2023-05-26 14:20] VITALS: BP 129/98; TEMP 98.2; O2SAT 100
== END 2023-05-26 13:29 | disposition home or self-care (01) ==
LOC: ER 12:27
DX: L03.012 Cellulitis of left finger (principal)
CPT/HCPCS: 99283

== ENCOUNTER 2024-04-14 12:05 | Emergency (ER) | payer SELFPAY ==
[2024-04-14 12:47] LABS: Absolute Eosinophils 0.1 K/uL (0-0.5); Absolute Lymphocytes (CBC) 1.5 K/uL (0.7-4.9); Absolute Monocytes 0.4 K/uL (0.1-1.3); Basophils % 0.6 % (0-1.3); Hematocrit 43.5 % (39.6-49.0); Lymphocytes % 37.1 % (15.3-44.8); MCH 28.3 pg (27.0-35.0); MCHC 32.2 g/dL (32.0-36.0); MCV 87.9 fL (80-100); MPV 8.2 fL (7.6-11.3); Monocytes % 10.7 % (3.3-12.3); Neutrophils % 49.6 % (41.7-73.7); Platelets 251 thou/uL (152-406); RBC Red Blood Cell Count 4.95 M/uL (4.33-5.43); Red Cell Distribution Width 15.3 % (12.1-15.2)
[2024-04-14 13:00] LABS: Anion Gap 6.9 mEq/L (5.0-15.0); Potassium 3.9 mEq/L (3.5-5.1)
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
[2024-04-14 15:23] VITALS: BP 128/83; TEMP 97.4; O2SAT 99
== END 2024-04-14 14:16 | disposition home or self-care (01) ==
LOC: ER 12:05
DX: R10.9 Unspecified abdominal pain (principal); Y04.8XXA Assault by other bodily force, initial encounter
CPT/HCPCS: 36415; 74177; 80048; 85025; 99283; Q9967

== ENCOUNTER 2024-04-22 04:02 | Emergency (ER) | payer SELFPAY ==
[2024-04-22] MEDS ORDERED: predniSONE 20 MG TAB ONE (04:18)
[2024-04-22] MEDS ORDERED: IPRATROPIUM BROM 0.5MG/2.5ML ONE ×2 (04:18→05:14)
[2024-04-22] MEDS ORDERED: ALBUTEROL 2.5 MG/3 ML NEB SOL ONE ×2 (04:18→05:14)
--- NOTE | 2024-04-22 05:09 | ER ---
Nurse's Notes [facility] Name: Paulette Lozoya Age: 28 yrs Sex: Male : 1995 Arrival Date: 04/22/2024 Time: 04:02 Bed 19 Private MD: Diagnosis: Asthma exacerbation Presentation: 04/22 04:10 Chief complaint: Patient states: having shortness of breath for 4 days and got worse rg5 today and had a history of asthma. 04:10 Coronavirus screen: Vaccine status: Patient reports receiving the 1st dose of the Covid rg5 vaccine. Client denies travel out of the [place] in the last 14 days. Ebola Screen: Patient negative for fever greater than or equal to 101.5 degrees Fahrenheit, and additional compatible Ebola Virus Disease symptoms. Initial Sepsis Screen: Does the patient meet any 2 criteria? No. Patient's initial sepsis screen is negative. Does the patient have a suspected source of infection? No. Patient's initial sepsis screen is negative. Risk Assessment: Do you want to hurt yourself or someone else? Patient reports no desire to harm self or others. Onset of symptoms was April 22, 2024. Care prior to arrival: Medication(s) given: Albuterol Neb x 1. 04:10 Method Of Arrival: Ambulatory rg5 04:10 Acuity: BLAKE 4 rg5 Triage Assessment: 04:10 General: Appears uncomfortable, Behavior is calm, cooperative, appropriate for age. rg5 04:10 Pain: Denies pain. EENT: No deficits noted. Neuro: Level of Consciousness is awake, rg5 alert, obeys commands, Oriented to person, place, time. Cardiovascular: Heart tones S1 S2 Patient's skin is warm and dry. Respiratory: Reports shortness of breath at rest Airway is patent Trachea midline Respiratory effort is even, Respiratory pattern is symmetrical, Onset: The symptoms/episode began/occurred just prior to arrival, the patient has mild shortness of breath. GI: No signs and/or symptoms were reported involving the gastrointestinal system. : No signs and/or symptoms were reported regarding the genitourinary system. Derm: Skin is intact, Skin is normal, Skin temperature is warm. Musculoskeletal: Circulation, motion, and sensation intact. Range of motion: intact in all extremities. Historical: - Allergies: 04:31 No Known Allergies; rg5 - Home Meds: 04:31 Albuterol Inhl [Active]; Symbicort 160-4.5 mcg/actuation inhalation HFA Aerosol Inhaler rg5 [Active]; - PMHx: 04:31 Asthma; adhd; rg5 - PSHx: 04:31 knee surgery; rg5 - Immunization history:: Adult Immunizations up to date. - Infectious Disease History:: Denies. - Social history:: Smoking status: Patient reports use of chewing tobacco. Screenin:10 [facility] ED Fall Risk Assessment (Adult) History of falling in the last 3 months, rg5 including since admission No falls in past 3 months (0 pts) Confusion or Disorientation No (0 pts) Intoxicated or Sedated No (0 pts) Impaired Gait No (0 pts) Mobility Assist Device Used No (0 pt) Altered Elimination No (0 pt) Score/Fall Risk Level 0 - 2 = Low Risk Oriented to surroundings, Maintained a safe environment, Hourly rounding (assess needs \T\ fall precautionary measures) done. Abuse screen: Denies threats or abuse. Nutritional screening: No deficits noted. Tuberculosis screening: No symptoms or risk factors identified. Assessment: 04:10 Reassessment: see triage assessment. Cardiovascular: Rhythm is sinus rhythm. rg5 Respiratory: Airway is patent Respiratory effort is even, Respiratory pattern is regular, Breath sounds with wheezes. 04:30 Reassessment: patient refused covid \T\ flu swab. rg5 05:16 Reassessment: Patient and/or family updated on plan of care and expected duration. Pain rg5 level reassessed. Patient is alert, oriented x 3, equal unlabored respirations, skin warm/dry/pink. Patient states feeling better. Patient states symptoms have improved. Vital Signs: 04:10 BP 146 / 91; Pulse 84; Resp 26; Temp 98.1; Pulse Ox 95% on R/A; Weight 74.84 kg; Height rg5 5 ft. 9 in. ; Pain 0/10; 04:10 BP 146 / 91; Pulse 84; Resp 25; Temp 98.1; Pulse Ox 95% on R/A; Pain 0/10; rg5 05:16 BP 148 / 88; Pulse 91; Resp 20; Pulse Ox 99% on R/A; Pain 0/10; rg5 04:10 Body Mass Index 24.37 (74.84 kg, 175.26 cm) rg5 04:10 Pain Scale: Adult rg5 04:10 Pain Scale: Adult rg5 05:16 Pain Scale: Adult rg5 Betty Coma Score: 04:10 Eye Response: spontaneous(4). Motor Response: obeys commands(6). Verbal Response: rg5 oriented(5). Total: 15. ED Course: 04:06 Patient arrived in ED. gm2 04:08 Skye Siegel MD is Attending Physician. sp3 04:10 Arm band placed on right wrist. rg5 04:10 Patient has correct armband on for positive identification. Bed in low position. Call rg5 light in reach. 04:10 No provider procedures requiring assistance completed. Initial Neb Treatment Given as rg5 ordered. Patient did not have IV access during this emergency room visit. 04:14 Jose Dumont, RN is Primary Nurse. rg5 04:30 Triage completed. rg5 05:03 CXR XRAY In Process Unspecified. EDCO 05:32 Provided Education on: POST ER CARE. rg5 Administered Medications: 04:23 Drug: predniSONE PO 40 mg PO once Route: PO; rg5 05:16 Follow up: Response: No adverse reaction rg5 04:23 Drug: DuoNeb Nebulize (3:1) (2.5 mg - 0.5 mg) 3 ml Nebulizer once Route: Nebulizer; rg5 05:16 Follow up: Response: No adverse reaction rg5 05:15 Drug: DuoNeb Nebulize (3:1) (2.5 mg - 0.5 mg) 3 ml Nebulizer once Route: Nebulizer; rg5 05:32 Follow up: Response: No adverse reaction; Wheezing diminished rg5 Medication: 04:10 VIS not applicable for this client. rg5 Outcome: 05:08 Discharge ordered by . sp3 05:31 Discharged to home ambulatory, rg5 05:31 Condition: stable 05:31 Discharge instructions given to patient, Instructed on discharge instructions, follow up and referral plans. Demonstrated understanding of instructions, follow-up care, medications, Prescriptions given X 4, 05:33 Patient left the ED. rg5 Signatures: Dispatcher [employer] EDCO Skye Siegel MD MD sp3 Nida Yan 2 Jose Dumont, RN RN rg5
--- NOTE | 2024-04-22 05:09 | EDPHYS ---
Physician Documentation [facility] Name: Paulette Lozoya Age: 28 yrs Sex: Male : 1995 Arrival Date: 04/22/2024 Time: 04:02 Bed 19 Private MD: ED Physician Skye Siegel HPI: 04/22 04:13 This 28 yrs old Black Male presents to ER via Unassigned with complaints of Breathing sp3 Difficulty, Asthma Exacerbation. 04:13 28-year-old male with a history of asthma who is out of his inhaler presents to the ED sp3 with chief complaint wheezing and cough and congestion for 4 days. Patient states is progressively getting worse. He denies any fever, chest pain, back pain, rhinorrhea, production on the cough, abdominal pain, vomiting, diarrhea, rash, known sick contacts, travel history, prolonged immobilization, or any other signs or symptoms on ROS at this time.. Historical: - Allergies: 04:31 No Known Allergies; rg5 - Home Meds: 04:31 Albuterol Inhl [Active]; Symbicort 160-4.5 mcg/actuation inhalation HFA Aerosol Inhaler rg5 [Active]; - PMHx: 04:31 Asthma; adhd; rg5 - PSHx: 04:31 knee surgery; rg5 - Immunization history:: Adult Immunizations up to date. - Infectious Disease History:: Denies. - Social history:: Smoking status: Patient reports use of chewing tobacco. ROS: 04:13 Constitutional: Negative for fever, chills, and weight loss, Eyes: Negative for injury, sp3 pain, redness, and discharge, Neck: Negative for injury, pain, and swelling, Cardiovascular: Negative for chest pain, palpitations, and edema, Abdomen/GI: Negative for abdominal pain, nausea, vomiting, diarrhea, and constipation, Back: Negative for injury and pain, MS/Extremity: Negative for injury and deformity, Skin: Negative for injury, rash, and discoloration, Neuro: Negative for headache, weakness, numbness, tingling, and seizure, Psych: Negative for depression, anxiety, suicide ideation, homicidal ideation, and hallucinations, Allergy/Immunology: Negative for hives, rash, and allergies, Endocrine: Negative for neck swelling, polydipsia, polyuria, polyphagia, and marked weight changes, Hematologic/Lymphatic: Negative for swollen nodes, abnormal bleeding, and unusual bruising, 04:13 All other systems are negative, Exam: 04:14 Constitutional: This is a well developed, well nourished patient who is awake, alert, sp3 and in no acute distress. Head/Face: Normocephalic, atraumatic. Eyes: Pupils equal round and reactive to light, extra-ocular motions intact. Lids and lashes normal. Conjunctiva and sclera are non-icteric and not injected. Cornea within normal limits. Periorbital areas with no swelling, redness, or edema. Neck: Trachea midline, no thyromegaly or masses palpated, and no cervical lymphadenopathy. Supple, full range of motion without nuchal rigidity, or vertebral point tenderness. No Meningismus. Chest/axilla: Normal chest wall appearance and motion. Nontender with no deformity. No lesions are appreciated. Cardiovascular: Regular rate and rhythm with a normal S1 and S2. No gallops, murmurs, or rubs. Normal PMI, no JVD. No pulse deficits. Abdomen/GI: Soft, non-tender, with normal bowel sounds. No distension or tympany. No guarding or rebound. No evidence of tenderness throughout. Back: No spinal tenderness. No costovertebral tenderness. Full range of motion. Skin: Warm, dry with normal turgor. Normal color with no rashes, no lesions, and no evidence of cellulitis. MS/ Extremity: Pulses equal, no cyanosis. Neurovascular intact. Full, normal range of motion. Neuro: Awake and alert, GCS 15, oriented to person, place, time, and situation. Cranial nerves II-XII grossly intact. Motor strength 5/5 in all extremities. Sensory grossly intact. Cerebellar exam normal. Normal gait. Psych: Awake, alert, with orientation to person, place and time. Behavior, mood, and affect are within normal limits. 04:14 Respiratory: Expiratory wheezing noted with respiratory rate at 20. Pulse oxygenation 98% on room air., Vital Signs: 04:10 BP 146 / 91; Pulse 84; Resp 26; Temp 98.1; Pulse Ox 95% on R/A; Weight 74.84 kg; Height rg5 5 ft. 9 in. ; Pain 0/10; 04:10 BP 146 / 91; Pulse 84; Resp 25; Temp 98.1; Pulse Ox 95% on R/A; Pain 0/10; rg5 05:16 BP 148 / 88; Pulse 91; Resp 20; Pulse Ox 99% on R/A; Pain 0/10; rg5 04:10 Body Mass Index 24.37 (74.84 kg, 175.26 cm) rg5 04:10 Pain Scale: Adult rg5 04:10 Pain Scale: Adult rg5 05:16 Pain Scale: Adult rg5 Betty Coma Score: 04:10 Eye Response: spontaneous(4). Motor Response: obeys commands(6). Verbal Response: rg5 oriented(5). Total: 15. MDM: 04:08 Patient medically screened. sp3 04:14 Data reviewed: vital signs, nurses notes, lab test result(s), radiologic studies. ED sp3 course: 28-year-old male with history of asthma here with wheezing and difficulty breathing. Differential diagnosis includes asthma exacerbation, bronchitis, pneumonia, viral illness including SARS and influenza, among others. I am not highly suspicious of acute coronary syndrome, vascular pathology, CHF, sepsis, shock or any other critical illness. Workup will include chest x-ray and swabs with treatment being DuoNeb and prednisone p.o. Disposition probable discharge once patient is improved with PCP follow-up.. 05:07 ED course: Patient refused swabs. Chest x-ray is normal. After second nebulizer we will sp3 safely discharge patient home with inhaler and p.o. prednisone.. 04/22 04:12 Order name: CXR XRAY sp3 Administered Medications: 04:23 Drug: predniSONE PO 40 mg PO once Route: PO; rg5 05:16 Follow up: Response: No adverse reaction rg5 04:23 Drug: DuoNeb Nebulize (3:1) (2.5 mg - 0.5 mg) 3 ml Nebulizer once Route: Nebulizer; rg5 05:16 Follow up: Response: No adverse reaction rg5 05:15 Drug: DuoNeb Nebulize (3:1) (2.5 mg - 0.5 mg) 3 ml Nebulizer once Route: Nebulizer; rg5 05:32 Follow up: Response: No adverse reaction; Wheezing diminished rg5 Disposition Summary: 04/22/24 05:08 Discharge Ordered Notes: Location: Home sp3 Condition: Stable sp3 Diagnosis - Asthma exacerbation sp3 Followup: sp3 - With: Private Physician - When: Upon discharge from the Emergency Department - Reason: Continuance of care Discharge Instructions: - Discharge Summary Sheet sp3 - Acute Bronchitis, Adult sp3 - Asthma Attack sp3 Forms: - Medication Reconciliation Form sp3 - Antibiotic Education sp3 - Prescription Opioid Use sp3 - Patient Portal Instructions sp3 - Leadership Thank You Letter sp3 Prescriptions: - Ventolin HFA 90 mcg/actuation Inhalation HFA Aerosol Inhaler - inhale 2 inhalation INHALATION route every 4 hours as needed for bronchospasm; sp3 administer via ventilator; 1 Each; Refills: 0, Product Selection Permitted - Symbicort 80-4.5 mcg/actuation Inhalation HFA Aerosol Inhaler - inhale 1 puff INHALATION route 3 times per day; 1 Each; Refills: 0, Product sp3 Selection Permitted - Zithromax Z-[place] 250 mg Oral Tablet - take 1 tablet ORAL route as directed for 5 days Day 1 - take two (2) tablets sp3 one time. Day 2, 3, 4 , 5 take one (1) tablet once daily.; 6 tablet; Refills: 0, Product Selection Permitted - Prednisone 20 mg Oral Tablet - take 2 tablets ORAL route once daily for 5 days; 10 tablet; Refills: 0, Product sp3 Selection Permitted Signatures: Dispatcher [employer] EDSkye Villareal MD MD sp3 Jose Dumont RN RN rg5
--- NOTE | 2024-04-22 06:27 | RAD REPORT ---
EXAM: XR Chest, 1 View CLINICAL HISTORY: The patient is 28 years old and is Male; DYSPNEA TECHNIQUE: Frontal view of the chest. COMPARISON: No relevant prior studies available. FINDINGS: Lungs: Unremarkable. No consolidation. Pleural space: Unremarkable. No pneumothorax. Heart: Unremarkable. Mediastinum: Unremarkable. Normal mediastinal contour. Bones/joints: No acute findings. IMPRESSION: No acute findings in the chest. Electronically signed by: Ganga Paulson MD 04/22/2024 06:24 AM CDT RP 8 Due to temporary technical issues with the PACS/S-cubism reporting system, reports are being zechariah d by the in-house radiologist without review as a courtesy to ensure prompt reporting the interpreting radiologist is fully responsible for the content of the report. Transcribed Date/Time: 04/22/2024 6:27 AM
[2024-04-22 19:16] VITALS: TEMP 98.1
[2024-04-22 19:19] VITALS: BP 148/88; O2SAT 99
== END 2024-04-22 05:33 | disposition home or self-care (01) ==
LOC: ER 04:02
DX: J44.1 Chronic obstructive pulmonary disease with (acute) exacerbation (principal); F17.220 Nicotine dependence, chewing tobacco, uncomplicated; F90.9 Attention-deficit hyperactivity disorder, unspecified type
CPT/HCPCS: 71045; 94640; 99284; J7512; J7613; J7644

== ENCOUNTER 2025-05-17 12:12 | Emergency (ER) | payer SELFPAY ==
--- NOTE | 2025-05-17 13:34 | RAD REPORT ---
EXAMINATION: Ankle Left 3 View CLINICAL INDICATION: Male, 29 years old. PAIN COMPARISON: No prior exam. FINDINGS: No acute fracture. No malalignment/dislocation. No significant focal degenerative change. Other: n/a IMPRESSION: No acute osseous abnormality.
--- NOTE | 2025-05-17 13:34 | RAD REPORT ---
EXAM: Foot Left 3 View HISTORY: PAIN COMPARISON: None FINDINGS: Bones: No acute fracture identified. Alignment:No significant malalignment. Degenerative changes:None significant. Other: n/a IMPRESSION: No acute osseous abnormality.
--- NOTE | 2025-05-17 13:36 | ER ---
Nurse's Notes [facility] Name: Paulette Lozoya Age: 29 yrs Sex: Male : 1995 Arrival Date: 05/17/2025 Time: 12:12 Bed DX1 Private MD: Diagnosis: Pain in left ankle and joints of left foot Presentation: 05/17 12:49 Chief complaint: Patient states: c/o pain to left lateral ankle and foot for 2 weeks. me1 Pain is worse with weight bearing. Pain level 7/10. Coronavirus screen: At this time, the client does not indicate any symptoms associated with coronavirus-19. Ebola Screen: No symptoms or risks identified at this time. Initial Sepsis Screen: Does the patient meet any 2 criteria? No. Patient's initial sepsis screen is negative. Does the patient have a suspected source of infection? No. Patient's initial sepsis screen is negative. Risk Assessment: Do you want to hurt yourself or someone else? Patient reports no desire to harm self or others. Onset of symptoms is unknown. 12:49 Method Of Arrival: Ambulatory [facility] [place], [place] 12:49 Acuity: BLAKE 4 me1 Triage Assessment: 12:53 General: Appears uncomfortable, well groomed, well developed, well nourished, Behavior me1 is calm, cooperative, appropriate for age. Pain: Complains of pain in left foot Pain does not radiate. Pain currently is 7 out of 10 on a pain scale. Quality of pain is described as aching, pressure, Pain began gradually, Is continuous. EENT: No signs and/or symptoms were reported regarding the EENT system. Neuro: Level of Consciousness is awake, alert, obeys commands, Oriented to person, place, time, situation, Appropriate for age. Cardiovascular: Patient's skin is warm and dry. Respiratory: Airway is patent Respiratory effort is even, unlabored, Respiratory pattern is regular, symmetrical. GI: No signs and/or symptoms were reported involving the gastrointestinal system. : No signs and/or symptoms were reported regarding the genitourinary system. Derm: Skin is intact, is healthy with good turgor, Skin is normal. Musculoskeletal: Reports pain in left foot. Historical: - Allergies: 12:53 No Known Allergies; me1 - PMHx: 12:53 adhd; Asthma; me1 - PSHx: 12:53 knee surgery; me1 - Immunization history:: Adult Immunizations up to date. - Infectious Disease History:: Denies. - Social history:: Smoking status: Patient reports the use of cigarette tobacco products, denies chronic smoking, but will smoke occasionally. Screenin:44 [facility] ED Fall Risk Assessment (Adult) History of falling in the last 3 months, me1 including since admission No falls in past 3 months (0 pts) Confusion or Disorientation No (0 pts) Intoxicated or Sedated No (0 pts) Impaired Gait Yes (1 pt) Mobility Assist Device Used No (0 pt) Altered Elimination No (0 pt) Score/Fall Risk Level 0 - 2 = Low Risk Maintained a safe environment, Provided non-skid footwear, Hourly rounding (assess needs \T\ fall precautionary measures) done. Abuse screen: Denies threats or abuse. Nutritional screening: No deficits noted. Tuberculosis screening: No symptoms or risk factors identified. Assessment: 14:44 General: See triage assessment. me1 Vital Signs: 12:49 BP 135 / 90; Pulse 78; Resp 18; Temp 98.3; Pulse Ox 100% ; Weight 72.57 kg; Height 5 me1 ft. 9 in. ; Pain 7/10; 14:45 BP 128 / 87; Pulse 76; Resp 17; Temp 98.3; Pulse Ox 100% ; me1 12:49 Body Mass Index 23.63 (72.57 kg, 175.26 cm) me1 12:49 Pain Scale: Adult me1 ED Course: 12:20 Patient arrived in ED. cj3 12:21 Odalis Aldana PA-C is PHCP. sb4 12:21 Oscar Otero MD is Attending Physician. sb4 12:53 Triage completed. me1 12:53 Arm band placed on Patient placed in waiting room. me1 13:26 Foot Left 3 View XRAY In Process Unspecified. EDMS 13:27 Ankle Left 3 View XRAY In Process Unspecified. EDMS 13:36 Kamari Simon MD is Referral Physician. sb4 14:18 Abigail Manzo, SELINA is Primary Nurse. me1 14:44 Patient has correct armband on for positive identification. Provided Education on: POC. me1 Verbalized understanding.. 14:44 No provider procedures requiring assistance completed. Patient did not have IV access me1 during this emergency room visit. Administered Medications: 14:16 Drug: Ketorolac IM 30 mg IM once Route: IM; Site: left deltoid; me1 14:19 Follow up: Response: No adverse reaction me1 14:19 Drug: Methocarbamol PO 750 mg PO once Route: PO; me1 14:19 Follow up: Response: No adverse reaction me1 Medication: 14:45 VIS not applicable for this client. me1 Outcome: 13:36 Discharge ordered by . enrrique 14:45 Discharged to home ambulatory, me1 14:45 Condition: stable 14:45 Discharge instructions given to patient, Instructed on discharge instructions, follow up and referral plans. medication usage, Demonstrated understanding of instructions, follow-up care, medications, Prescriptions given X 2, 14:46 Patient left the ED. me1 Signatures: Dispatcher [employer] Odalis Antoine, MEG PACarlitos sb4 Abigail Manzo RN RN me1 Phuong Callaway cj3
--- NOTE | 2025-05-17 13:36 | EDPHYS ---
Physician Documentation [facility] Name: Paulette Lozoya Age: 29 yrs Sex: Male : 1995 Arrival Date: 05/17/2025 Time: 12:12 Bed DX1 Private MD: ED Physician Oscar Otero HPI: 05/17 13:41 This 29 yrs old Black Male presents to ER via Ambulatory with complaints of Ankle sb4 Injury. 13:41 Patient reports pain in his lateral left foot and ankle for 2 weeks now. She denies any sb4 injury. Came in because he could not sleep last night. States he took Tylenol this morning and his pain is improved. He has not been resting it. Cannot think of any injury. Thinks that he injured it in high school but nothing acute. No numbness or tingling. Historical: - Allergies: 12:53 No Known Allergies; me1 - PMHx: 12:53 adhd; Asthma; me1 - PSHx: 12:53 knee surgery; me1 - Immunization history:: Adult Immunizations up to date. - Infectious Disease History:: Denies. - Social history:: Smoking status: Patient reports the use of cigarette tobacco products, denies chronic smoking, but will smoke occasionally. ROS: 13:41 Constitutional: Negative for fever, chills, and weight loss, sb4 13:41 MS/extremity: Positive for pain, of the left foot, 13:41 All other systems are negative, Exam: 13:41 Constitutional: This is a well developed, well nourished patient who is awake, alert, sb4 and in no acute distress. Head/Face: Normocephalic, atraumatic. Eyes: Extra-ocular motions intact. Periorbital areas with no swelling, redness, or edema. ENT: Mucous membranes moist. Respiratory: No increased work of breathing, no retractions or nasal flaring. Skin: Warm, dry with normal turgor. Normal color with no rashes, no lesions, and no evidence of cellulitis. MS/ Extremity: Pulses equal, no cyanosis. Neurovascular intact. Full, normal range of motion. Vital Signs: 12:49 BP 135 / 90; Pulse 78; Resp 18; Temp 98.3; Pulse Ox 100% ; Weight 72.57 kg; Height 5 me1 ft. 9 in. ; Pain 7/10; 14:45 BP 128 / 87; Pulse 76; Resp 17; Temp 98.3; Pulse Ox 100% ; me1 12:49 Body Mass Index 23.63 (72.57 kg, 175.26 cm) me1 12:49 Pain Scale: Adult me1 MDM: 12:22 Medical Screening Exam initiated sb4 13:42 Differential diagnosis: fracture, sprain, arthritis, gout, cellulitis. Data reviewed: sb4 vital signs, nurses notes, radiologic studies, and as a result, I will discharge patient. Counseling: I had a detailed discussion with the patient and/or guardian regarding the historical points, exam findings, and any diagnostic results supporting the discharge/admit diagnosis, radiology results, the need for outpatient follow up, a orthopedic surgeon, to return to the emergency department if symptoms worsen or persist or if there are any questions or concerns that arise at home. 05/17 12:52 Order name: Foot Left 3 View XRAY; Complete Time: 13:35 sb4 05/17 12:52 Order name: Ankle Left 3 View XRAY; Complete Time: 13:35 sb4 05/17 13:36 Order name: Walking boot: short; Complete Time: 14:16 sb4 Administered Medications: 14:16 Drug: Ketorolac IM 30 mg IM once Route: IM; Site: left deltoid; me1 14:19 Follow up: Response: No adverse reaction me1 14:19 Drug: Methocarbamol PO 750 mg PO once Route: PO; me1 14:19 Follow up: Response: No adverse reaction me1 Disposition: 18:14 Co-signature as Attending Physician, Oscar Otero MD I reviewed the patient's care rn provided by the Advanced Practice Provider and agree with the diagnosis and treatment plan. Disposition Summary: 05/17/25 13:36 Discharge Ordered Notes: Location: Home sb4 Problem: an ongoing problem sb4 Symptoms: are unchanged sb4 Condition: Stable sb4 Diagnosis - Pain in left ankle and joints of left foot sb4 Followup: sb4 - With: Kamari Simon MD - When: As needed - Reason: Recheck today's complaints, Re-evaluation by your physician Discharge Instructions: - Discharge Summary Sheet sb4 - Musculoskeletal Pain sb4 - Pain Without a Known Cause sb4 Forms: - Patient Portal Instructions sb4 - Leadership Thank You Letter sb4 Prescriptions: - meloxicam 7.5 mg Oral tablet - take 1 tablet ORAL route daily; 14 tablet; Refills: 0, Product Selection sb4 Permitted - Cyclobenzaprine 5 mg Oral Tablet - take 1 tablet ORAL route 3 times per day As needed; 15 tablet; Refills: 0, sb4 Product Selection Permitted Signatures: Dispatcher [employer] Oscar Alford MD MD rn Brown, Sophia, PA-C PA-C sb4 Abigail Manzo RN RN me1
[2025-05-17] MEDS ORDERED: KETOROLAC 30 MG/ML INJ ONE (14:12)
[2025-05-17 15:20] VITALS: TEMP 98.3; O2SAT 100
[2025-05-17 15:22] VITALS: BP 128/87
== END 2025-05-17 14:46 | disposition home or self-care (01) ==
LOC: ER 12:12
DX: M25.572 Pain in left ankle and joints of left foot (principal); F17.210 Nicotine dependence, cigarettes, uncomplicated; F90.9 Attention-deficit hyperactivity disorder, unspecified type; J45.909 Unspecified asthma, uncomplicated
CPT/HCPCS: 96372; 99284; J1885